=== PATIENT | female | born 1955 | race Caucasian/White ===

== ENCOUNTER 2017-02-15 14:30 | Inpatient (IN) ==
[2017-02-15] MEDS ORDERED: 0.9 % Sodium Chloride 1,000 ML IVC ONE ×3 (14:45→18:01)
--- NOTE | 2017-02-15 14:51 | Emergency Department Note ---
Disposition Clinical Impression: Small bowel obstruction, Tachycardia, Elevated serum lactate dehydrogenase, Acute kidney injury Hypotension Qualifiers: Hypotension type: other hypotension type Qualified Code(s): I95.89 - Other hypotension Pancreatitis Qualifiers: Chronicity: acute Pancreatitis type: unspecified pancreatitis type Acute pancreatitis complication: unspecified Qualified Code(s): K85.90 - Acute pancreatitis without necrosis or infection, unspecified Disposition: Admitted As Inpatient Condition: Critical Referrals: NO,PCP [Primary Care Provider] - Forms: ED Satisfaction Letter Altered Mental Status HPI - General Chief Complaint: ED Altered Mental Status Stated Complaint: AMS Time Seen by Provider: 02/15/17 14:45 Source: family, EMS Limitations: altered mental status Nursing Notes Reviewed: Yes Vital Signs Reviewed: Yes - History of Present Illness HPI Narrative: Miss Mcneil, a 62-year-old female, presents from home via EMS with chief complaint of altered mentation and abdominal swelling. Patient has been subjectively and vomiting for the past several days. Mother is at bedside states that there was abdominal pain started 1 or 2 days ago in the distention began 30-60 minutes prior to arrival. She is uncertain of other details she was unable to speak with her daughter as she was moaning and unable to answer. She currently takes no daily medications. - Related Data Home Medications Medication Instructions Recorded Confirmed Acetaminophen [Tylenol] 1,000 mg PO Q4H PRN 02/15/17 02/15/17 Calcium Carbonate/Simethicone 1 each PO Q4H PRN 02/15/17 02/15/17 [[place] Heartburn+Gas] Haloperidol [Haldol] 1 mg PO BID 02/15/17 02/15/17 Meloxicam [Mobic] 15 mg PO DAILY PRN 02/15/17 02/15/17 Polyethylene Glycol 3350 17 gm PO DAILY PRN 02/15/17 02/15/17 [Smoothlax] hydrOXYzine HCl [Hydroxyzine HCl] 12.5 - 50 mg PO Q6H PRN 02/15/17 02/15/17 Allergies Allergy/AdvReac Type Severity Reaction Status Date / Time No Known Allergies Allergy Verified 07/16/15 22:23 Limitations: ROS unobtainable due to patients medical condition Past Medical History - Past Medical History Medical history: Reports: other Surgical history: Reports: other Psychiatric history: Reports: anxiety 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 General: Patient is alert, not oriented, and in acute distress. She is moaning and moving uncomfortably. She localizes the pain. HEENT: No facial asymmetry. Head is normocephalic and atraumatic. PERRLA. Cardiovascular: Heart tachycardic rate and irregular rhythm without, rubs, gallops, or murmurs. No JVD. PMI nondisplaced. Respiratory: Symmetric chest rise with good respiratory effort. Bilateral breath sounds are clear without wheezing, crackles, or rhonchi. Abdomen: Bowel sounds present normoactive -4 quadrants. Abdomen is soft, nondistended, and nontender. No organomegaly noted. Musculoskeletal: Muscle strength 5/5 and symmetric bilaterally in upper and lower extremities. DTRs 2/4 and symmetric bilaterally in upper and lower extremities. Neuro: Cranial nerves II through XII without deficit. Sensation light touch intact. Psych: Patient's affect is appropriate for situation. - General Limitations: altered mental status General appearance: in distress Course Course Narrative: Patient stories concerning for small bowel structure versus possible sepsis. She rises and atrial fibrillation with no history of cardiac dysrhythmias. She currently takes no daily medications. She is not on any antiplatelet or anticoagulants. Will begin sepsis workup as well as CT abdomen and pelvis without contrast. Unable to assess for signs of peritonitis as patient's abdomen is tender, tense , she is shifting in bed moaning, and exquisitely tender to any palpation of her abdomen. Patient's blood pressure was 70s over 30s at presentation. Has dropped to 60s/ 30s then 50s/30s despite IV fluids on pressure bag. Left femoral line placed sterile technique. Levophed started and titrated. Spoke with ICU residents are aware of the patient. As his heart rate is tachycardic in the 140s and atrial fibrillation, BP systolic and 90 at 40 mcg/min of Levophed. 1.5 L normal saline has been bolused. Will begin an additional [address] Plaza who agrees patient is not a candidate for surgery at this time. Will follow her after admission to ICU. NG tube placed with immediate decompression of gastric contents. Within 5 minutes of NG tube placement, first 1.1 L gastric contents removed with continuation. Patient's heart rate was reduced to around 100. Rhythm returned to normal sinus rhythm. Blood pressure remained systolic 90s after Levophed titrated down to 5 mcg/min. Patient's pain reduced substantially after removal of 2+ L from the NG tube. 16:50 Dr. Warner and I spoke with the patient's mother at length in the family room and emergency department regarding the patient's current status and prognosis. We discussed CODE STATUS and how far the patient and her mother would want us to carry on in managing the patient. Patient's mother, who is the patient's power of deputy prosecuting attorney, stated that the patient would not know what we would be asking on a typical day. However, she is able to answer for the patient that patient would not want chest compressions or intubation. We clarified with those actions would mean that she reiterated no compressions, no intubation in the event of cardiac arrest pulmonary arrest. Mother had no additional questions at this time. We will make the patient DNRCCA. 17:[address] Jimenez who accepts the patient. Vital Signs Temperature 98.0 F 02/15/17 14:31 Pulse Rate 191 02/15/17 14:31 Respiratory Rate 32 02/15/17 14:31 Blood Pressure 106/74 02/15/17 14:31 O2 Sat by Pulse Oximetry 0 02/15/17 14:31 Temperature 98.0 F 02/15/17 14:31 Pulse Rate 90 02/15/17 17:23 Respiratory Rate 24 02/15/17 17:23 Blood Pressure 99/69 02/15/17 17:23 O2 Sat by Pulse Oximetry 91 02/15/17 17:23 Oxygen Delivery Oxygen Delivery Non Rebreather Mask Procedures - Central Line Placement Left Femoral Central Line Inserted*: Yes Central Line Catheter Replacement*: Yes Central Line Insertion: emergent Consent Obtained: verbal consent Procedural Pause: verify patient name and date of , timeout performed per policy, pippa and assess the site, assemble equipment and verify supplies, perform hand hygiene Patient Placed on Monitor/Pulse Ox: Yes During the Procedure: clinician is wearing sterile gloves, cap, mask,& gown during insertion, sterile field and sterile technique are maintained, patient's face is covered with drape or mask and wearing a cap Central Line Prep: Chlorhexidine scrub Prep the Procedure Site: apply chloraprep to the skin using a back and forth scrubbing motion Ultrasound Used for Placement: Yes Central Line Lumen Inserted: triple Post Procedure: sutured in place, good blood return, all ports aspirated, flushed, capped, sterile dressing applied, guide wire removed and visualized, dressing is dated Patient Tolerated Procedure: no complications Complications: none Name of Clinician Inserting Central Line: Serina Clinician Assisting/Completing Checklist: See Date: 02/15/17 Time: 15:30 Additional Comments: Indication: need for pressure support. Altered Mental Status - Medical Records Medical records reviewed: Yes I reviewed the patient's medical records. - Lab Data Lab results reviewed: Yes I reviewed the patient's lab results. Result diagrams: 02/15/17 14:45 02/15/17 14:45 Lab Results 02/15/17 02/15/17 02/15/17 Range/Units 14:45 14:45 14:45 WBC 18.1 H (4.3-11.1) K/mcL RBC 4.74 (3.82-4.97) M/mcL Hgb 14.6 (11.5-15.4) g/dL Hct 49.4 H (35.3-44.9) % MCV 104.2 H (83.0-100.0) fL MCH 30.8 (28.0-33.3) pg MCHC 29.6 L (31.6-35.5) g/dL RDW 13.4 (11.5-14.5) % Plt Count 272 (140-400) K/mcL MPV 11.9 (9.4-12.4) fL Immature Gran % 2.1 (0-4) % Seg Neutrophils % 78.9 % Lymphocytes % 14.9 % Monocytes % 3.9 % Eosinophils % 0.1 % Basophils % 0.1 % Neutrophils # 14.3 H (1.6-8.9) K/mcL Lymphocytes # 2.7 (0.6-4.6) K/mcL Monocytes # 0.7 (0.0-1.3) K/mcL Eosinophils # 0.0 (0.0-0.6) K/mcL Basophils # 0.0 (0.0-0.2) K/mcL Sodium 144 (136-145) mEq/L Potassium 4.4 (3.5-4.5) mEq/L Chloride 105 (98-109) mEq/L Carbon Dioxide 11 L (19-29) mEq/L BUN 46 H (7-20) mg/dL Creatinine 2.31 H (0.57-1.11) mg/dL Est GFR ( Amer) 26 L (> 60) Est GFR (Non-Af Amer) 22 L (> 60) BUN/Creatinine Ratio 20 (6-26) Glucose 283 H (70-99) mg/dL POC Glucose (58-89) Calculated Osmolality 320 H (280-300) Lactic Acid 18.0 H* (0.5-2.2) mmol/L Calcium 12.3 H (8.6-10.8) mg/dL Phosphorus 10.7 H (2.3-4.7) mg/dL Magnesium 3.2 H (1.6-2.6) mg/dL Total Bilirubin 0.8 (0.2-1.2) mg/dL Direct Bilirubin 0.3 (0.0-0.5) mg/dL Indirect Bilirubin 0.5 (0.0-1.2) mg/dL AST 17 (5-34) Units/L ALT 9 (0-55) Units/L Alkaline Phosphatase 76 (38-126) Units/L Troponin I (0-0.03) ng/mL Serum Total Protein 9.0 H (6.0-8.3) g/dL Albumin 4.1 (3.5-5.0) g/dL Globulin 4.9 H (2.4-3.5) g/dL Albumin/Globulin Ratio 0.8 L (1.1-2.2) Lipase 2218 H (8-78) Units/L Specimen Rejected 02/15/17 02/15/17 02/15/17 Range/Units 14:45 14:46 15:05 WBC (4.3-11.1) K/mcL RBC (3.82-4.97) M/mcL Hgb (11.5-15.4) g/dL Hct (35.3-44.9) % MCV (83.0-100.0) fL MCH (28.0-33.3) pg MCHC (31.6-35.5) g/dL RDW (11.5-14.5) % Plt Count (140-400) K/mcL MPV (9.4-12.4) fL Immature Gran % (0-4) % Seg Neutrophils % % Lymphocytes % % Monocytes % % Eosinophils % % Basophils % % Neutrophils # (1.6-8.9) K/mcL Lymphocytes # (0.6-4.6) K/mcL Monocytes # (0.0-1.3) K/mcL Eosinophils # (0.0-0.6) K/mcL Basophils # (0.0-0.2) K/mcL Sodium (136-145) mEq/L Potassium (3.5-4.5) mEq/L Chloride (98-109) mEq/L Carbon Dioxide (19-29) mEq/L BUN (7-20) mg/dL Creatinine (0.57-1.11) mg/dL Est GFR ( Amer) (> 60) Est GFR (Non-Af Amer) (> 60) BUN/Creatinine Ratio (6-26) Glucose (70-99) mg/dL POC Glucose 245 H (58-89) Calculated Osmolality (280-300) Lactic Acid (0.5-2.2) mmol/L Calcium (8.6-10.8) mg/dL Phosphorus (2.3-4.7) mg/dL Magnesium (1.6-2.6) mg/dL Total Bilirubin (0.2-1.2) mg/dL Direct Bilirubin (0.0-0.5) mg/dL Indirect Bilirubin (0.0-1.2) mg/dL AST (5-34) Units/L ALT (0-55) Units/L Alkaline Phosphatase (38-126) Units/L Troponin I 0.01 (0-0.03) ng/mL Serum Total Protein (6.0-8.3) g/dL Albumin (3.5-5.0) g/dL Globulin (2.4-3.5) g/dL Albumin/Globulin Ratio (1.1-2.2) Lipase (8-78) Units/L Specimen Rejected Volume - Radiology Data Radiology results reviewed: Yes I reviewed the patient's radiology results. Chest X-Ray 02/15/17 14:46 IMPRESSION: No evidence acute cardiopulmonary process. D/ / Yazmin Tipton MD / Yazmin Tipton MD Interpreting Provider: Yazmin Tipton MD Abdomen/Pelvis CT 02/15/17 14:54 IMPRESSION: 1. Massive distention of the stomach which is fluid-filled. There is pronounced dilation of the 1st and 2nd portions of the duodenum measuring up to 5 cm. The remainder of the small bowel is collapsed distally. Findings compatible with high-grade obstructive process at the level of the 2nd/3rd portions of the duodenum. Fluid is also seen extending of the partially visualized esophagus and findings predispose the patient for aspiration. D/ / Diaz Hollingsworth MD / Diaz Hollingsworth MD Interpreting Provider: Diaz Hollingsworth MD Head CT 02/15/17 15:38 IMPRESSION: Motion limited exam. Atrophy and moderate small vessel ischemic disease. If there is strong clinical concern for acute on chronic ischemia, consider MR. D/ / Patricio Kidd MD / Patricio Kidd MD Interpreting Provider: Patricio Kidd MD X-Ray 02/15/17 16:57 IMPRESSION: Nasogastric tube confirmed in the lumen of the stomach. D/ / Ellis Monroy MD / Ellis Monroy MD Interpreting Provider: Ellis Monroy MD - EKG Data EKG attestation: Yes I reviewed and interpreted this EKG. EKG results narrative: EKG #1 dated 02/15/17 at 14:33 shows atrial fibrillation with RVR. Rate 178. No previous EKGs for comparison. EKG #2 dated January 2017 at 16:59 shows sinus tachycardia with a rate of 123. Sugar 143, QRS 82, QT/QTC 346/44. Normal axis. Frequent PVCs. Nonspecific ST- T changes. TPA Checklist - LKW: 3-4.5 hrs Add. Contraindications Patient/family understanding: The patient/family members have been counseled and understood the risk, benefit , and alternatives of treatment.
[2017-02-15] MEDS ORDERED: Vancomycin 750 MG in D5% in Water 250 ML IVPB ONE (14:55)
[2017-02-15] MEDS ORDERED: Piperacillin/Tazobactam 3.375 GM in D5% in Water (Mini-Bag+) 100 ML IVPB ONE (14:55)
[2017-02-15] MEDS ORDERED: 0.9 % Sodium Chloride 500 ML IVC ONE (14:56)
[2017-02-15 14:59] LABS: Basophils % 0.1 %; Eosinophils % 0.1 %; Hematocrit 49.4 % (35.3-44.9); Hemoglobin 14.6 g/dL (11.5-15.4); Immature Granulocytes % 2.1 % (0-4); Lymphocytes # 2.7 K/mcL (0.6-4.6); Lymphocytes % 14.9 %; Mean Corpuscular HGB Conc 29.6 g/dL (31.6-35.5); Mean Corpuscular Hemoglobin 30.8 pg (28.0-33.3); Mean Corpuscular Volume 104.2 fL (83.0-100.0); Mean Platelet Volume 11.9 fL (9.4-12.4); Monocytes # 0.7 K/mcL (0.0-1.3); Monocytes % 3.9 %; Neutrophils # 14.3 K/mcL (1.6-8.9); Platelet Count 272 K/mcL (140-400); Red Blood Count 4.74 M/mcL (3.82-4.97); Red Cell Distribution Width 13.4 % (11.5-14.5); Segmented Neutrophils % 78.9 %
[2017-02-15] MEDS ORDERED: *HR* LORazepam 2 MG/ML VIAL IVP ONE (14:59)
[2017-02-15] MEDS ORDERED: *HR* LORazepam 2 MG/ML VIAL ONE (15:01)
[2017-02-15] MEDS ORDERED: *HR* FentaNYL (PF) 100 MCG/2 ML VIAL IVP ONE (15:02)
[2017-02-15] MEDS ORDERED: *HR* EPINEPHrine 1 MG/10 ML SYRINGE IVP ONE (15:12)
[2017-02-15 15:14] LABS: Albumin 4.1 g/dL (3.5-5.0); Albumin/Globulin Ratio 0.8 (1.1-2.2); Bilirubin,Direct 0.3 mg/dL (0.0-0.5); Bilirubin,Indirect 0.5 mg/dL (0.0-1.2); Bilirubin,Total 0.8 mg/dL (0.2-1.2); Calcium 12.3 mg/dL (8.6-10.8); Globulin 4.9 g/dL (2.4-3.5); Magnesium 3.2 mg/dL (1.6-2.6); Phosphorous 10.7 mg/dL (2.3-4.7); Potassium 4.4 mEq/L (3.5-4.5)
[2017-02-15] MEDS ORDERED: Levofloxacin 750 MG/150 ML 750 MG/150 ML BAG IVPB ONE (15:35)
--- NOTE | 2017-02-15 15:38 | Emergency Department Note ---
Disposition Clinical Impression: Small bowel obstruction Disposition: Admitted As Inpatient Referrals: NO,PCP [Primary Care Provider] - Forms: ED Satisfaction Letter General Adult HPI - General Chief complaint: ED Altered Mental Status Stated complaint: AMS Time Seen by Provider: 02/15/17 14:45 Source: family, EMS Limitations: altered mental status - History of Present Illness Pain Scale: 0 - Related Data Home Medications Medication Instructions Recorded Confirmed TraMADol [Ultram] 50 mg PO BID 07/16/15 07/16/15 clonazePAM [Klonopin] 2 mg PO BID PRN 07/16/15 07/16/15 Allergies Allergy/AdvReac Type Severity Reaction Status Date / Time No Known Allergies Allergy Verified 07/16/15 22:23 Past Medical History - Past Medical History Medical history: Reports: other Surgical history: Reports: other Psychiatric history: Reports: anxiety DOWEL PIN WORKER 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 - Social History Smoking Status: Never smoker Smokeless Tobacco Status: No Alcohol use: Reports: none Drug use: Reports: none Physical Exam - General Limitations: altered mental status General appearance: in distress Course Vital Signs Temperature 98.0 F 02/15/17 14:31 Pulse Rate 191 02/15/17 14:31 Respiratory Rate 32 02/15/17 14:31 Blood Pressure 106/74 02/15/17 14:31 O2 Sat by Pulse Oximetry 0 02/15/17 14:31 Temperature 98.0 F 02/15/17 14:31 Pulse Rate 134 02/15/17 16:42 Respiratory Rate 32 02/15/17 16:42 Blood Pressure 107/77 02/15/17 16:42 O2 Sat by Pulse Oximetry 89 02/15/17 16:42 Oxygen Delivery Oxygen Delivery Non Rebreather Mask Medical Decision Making - Lab Data Result diagrams: 02/15/17 14:45 02/15/17 14:45 Lab Results 02/15/17 02/15/17 02/15/17 Range/Units 14:45 14:45 14:45 WBC 18.1 H (4.3-11.1) K/mcL RBC 4.74 (3.82-4.97) M/mcL Hgb 14.6 (11.5-15.4) g/dL Hct 49.4 H (35.3-44.9) % MCV 104.2 H (83.0-100.0) fL MCH 30.8 (28.0-33.3) pg MCHC 29.6 L (31.6-35.5) g/dL RDW 13.4 (11.5-14.5) % Plt Count 272 (140-400) K/mcL MPV 11.9 (9.4-12.4) fL Immature Gran % 2.1 (0-4) % Seg Neutrophils % 78.9 % Lymphocytes % 14.9 % Monocytes % 3.9 % Eosinophils % 0.1 % Basophils % 0.1 % Neutrophils # 14.3 H (1.6-8.9) K/mcL Lymphocytes # 2.7 (0.6-4.6) K/mcL Monocytes # 0.7 (0.0-1.3) K/mcL Eosinophils # 0.0 (0.0-0.6) K/mcL Basophils # 0.0 (0.0-0.2) K/mcL Sodium 144 (136-145) mEq/L Potassium 4.4 (3.5-4.5) mEq/L Chloride 105 (98-109) mEq/L Carbon Dioxide 11 L (19-29) mEq/L BUN 46 H (7-20) mg/dL Creatinine 2.31 H (0.57-1.11) mg/dL Est GFR ( Amer) 26 L (> 60) Est GFR (Non-Af Amer) 22 L (> 60) BUN/Creatinine Ratio 20 (6-26) Glucose 283 H (70-99) mg/dL POC Glucose (58-89) Calculated Osmolality 320 H (280-300) Lactic Acid 18.0 H* (0.5-2.2) mmol/L Calcium 12.3 H (8.6-10.8) mg/dL Phosphorus 10.7 H (2.3-4.7) mg/dL Magnesium 3.2 H (1.6-2.6) mg/dL Total Bilirubin 0.8 (0.2-1.2) mg/dL Direct Bilirubin 0.3 (0.0-0.5) mg/dL Indirect Bilirubin 0.5 (0.0-1.2) mg/dL AST 17 (5-34) Units/L ALT 9 (0-55) Units/L Alkaline Phosphatase 76 (38-126) Units/L Troponin I (0-0.03) ng/mL Serum Total Protein 9.0 H (6.0-8.3) g/dL Albumin 4.1 (3.5-5.0) g/dL Globulin 4.9 H (2.4-3.5) g/dL Albumin/Globulin Ratio 0.8 L (1.1-2.2) Lipase 2218 H (8-78) Units/L Specimen Rejected 02/15/17 02/15/17 02/15/17 Range/Units 14:45 14:46 15:05 WBC (4.3-11.1) K/mcL RBC (3.82-4.97) M/mcL Hgb (11.5-15.4) g/dL Hct (35.3-44.9) % MCV (83.0-100.0) fL MCH (28.0-33.3) pg MCHC (31.6-35.5) g/dL RDW (11.5-14.5) % Plt Count (140-400) K/mcL MPV (9.4-12.4) fL Immature Gran % (0-4) % Seg Neutrophils % % Lymphocytes % % Monocytes % % Eosinophils % % Basophils % % Neutrophils # (1.6-8.9) K/mcL Lymphocytes # (0.6-4.6) K/mcL Monocytes # (0.0-1.3) K/mcL Eosinophils # (0.0-0.6) K/mcL Basophils # (0.0-0.2) K/mcL Sodium (136-145) mEq/L Potassium (3.5-4.5) mEq/L Chloride (98-109) mEq/L Carbon Dioxide (19-29) mEq/L BUN (7-20) mg/dL Creatinine (0.57-1.11) mg/dL Est GFR ( Amer) (> 60) Est GFR (Non-Af Amer) (> 60) BUN/Creatinine Ratio (6-26) Glucose (70-99) mg/dL POC Glucose 245 H (58-89) Calculated Osmolality (280-300) Lactic Acid (0.5-2.2) mmol/L Calcium (8.6-10.8) mg/dL Phosphorus (2.3-4.7) mg/dL Magnesium (1.6-2.6) mg/dL Total Bilirubin (0.2-1.2) mg/dL Direct Bilirubin (0.0-0.5) mg/dL Indirect Bilirubin (0.0-1.2) mg/dL AST (5-34) Units/L ALT (0-55) Units/L Alkaline Phosphatase (38-126) Units/L Troponin I 0.01 (0-0.03) ng/mL Serum Total Protein (6.0-8.3) g/dL Albumin (3.5-5.0) g/dL Globulin (2.4-3.5) g/dL Albumin/Globulin Ratio (1.1-2.2) Lipase (8-78) Units/L Specimen Rejected Volume Attestation Statement - Attestation Attestation: I examined this patient and my medical decision-making was reviewed with the STRUCTURAL MANAGER/PA/Advanced Practice Nurse/Resident Physician. I agree with the documented findings, disposition and treatment plan as described except to the extent set forth below. Patient arrived with altered mental status and vomiting. Patient is development delayed. Lives with mom. States she has had some vomiting for several days. Today was moaning and not acting right so she called 911. On arrival here patient is hypotensive with a systolic blood pressure in the 70s. Moaning and rolling in the bed. Firm abdomen. Plan. Suspected small bowel obstruction. Likely septic. IV fluid bolus is ordered. Patient still very agitated. Blood pressure still low. Code cart was open and postdose epi was given to a total of 60 mics[address] Placing central line after verbal consent from mom. Central line placed by Dr. Smith. Norepinephrine drip started. CT notified. Labs are, back with a white blood cell count 18,000. Lactate very high as well. 2 l of fluid been ordered. Currently on pressure bags. Norepi infusing. Antibiotics going as well. ICU has been notified. Await CT results. CT shows a high-grade proximal small bowel instruction. To have liters out of NG. Heart rate and blood pressure much improved. Weaning norepinephrine drip. Discussed prognosis with mom. Patient made DNR comfort care arrest. Once is to continue her measures for now. Surgeries and consult. Will admit to ICU.
[2017-02-15] MEDS ORDERED: Amiodarone Premix 150 MG/100 ML BAG IVPB ONE (16:16)
[2017-02-15] MEDS ORDERED: Ondansetron 4 MG/2 ML VIAL IVP PRN (17:33)
[2017-02-15] MEDS ORDERED: Naloxone 0.4 MG/ML INJ IVP PRN (17:33)
--- NOTE | 2017-02-15 17:33 | Pulmonology History & Physical ---
<Charles Jimenez W - Last Filed: 02/15/17 18:07> Date of Encounter: 02/15/17 History of Present Illness HPI: Ms. Mcneil is a 62 year old female Medications and Allergies Acetaminophen [Tylenol] 1,000 mg PO Q4H PRN 02/15/17 [History] Calcium Carbonate/Simethicone [[place] Heartburn+Gas] 1 each PO Q4H PRN [History] Haloperidol [Haldol] 1 mg PO BID 02/15/17 [History] Meloxicam [Mobic] 15 mg PO DAILY PRN 02/15/17 [History] Polyethylene Glycol 3350 [Smoothlax] 17 gm PO DAILY PRN 02/15/17 [History] hydrOXYzine HCl [Hydroxyzine HCl] 12.5 - 50 mg PO Q6H PRN 02/15/17 [History] Allergies No Known Allergies Allergy (Verified 07/16/15 22:23) All Systems: A 10-system review of systems was performed and is negative for pertinent findings except as documented above in the HPI. Physical Examination Vital Signs: Vital Signs, Last 4 Hours Resp BP 02/15/17 17:56 22 122/92 Results - Laboratory Findings CBC and BMP: 02/15/17 14:45 02/15/17 14:45 Abnormal lab findings: Abnormal lab results WBC 18.1 K/mcL (4.3-11.1) H 02/15/17 14:45 Hct 49.4 % (35.3-44.9) H 02/15/17 14:45 MCV 104.2 fL (83.0-100.0) H 02/15/17 14:45 MCHC 29.6 g/dL (31.6-35.5) L 02/15/17 14:45 Neutrophils # 14.3 K/mcL (1.6-8.9) H 02/15/17 14:45 Carbon Dioxide 11 mEq/L (19-29) L 02/15/17 14:45 BUN 46 mg/dL (7-20) H 02/15/17 14:45 Creatinine 2.31 mg/dL (0.57-1.11) H 02/15/17 14:45 Est GFR ( Amer) 26 (> 60) L 02/15/17 14:45 Est GFR (Non-Af Amer) 22 (> 60) L 02/15/17 14:45 Glucose 283 mg/dL (70-99) H 02/15/17 14:45 POC Glucose 245 (58-89) H 02/15/17 14:46 Calculated Osmolality 320 (280-300) H 02/15/17 14:45 Lactic Acid 9.3 mmol/L (0.5-2.2) H* 02/15/17 17:34 Calcium 12.3 mg/dL (8.6-10.8) H 02/15/17 14:45 Phosphorus 10.7 mg/dL (2.3-4.7) H 02/15/17 14:45 Magnesium 3.2 mg/dL (1.6-2.6) H 02/15/17 14:45 Serum Total Protein 9.0 g/dL (6.0-8.3) H 02/15/17 14:45 Globulin 4.9 g/dL (2.4-3.5) H 02/15/17 14:45 Albumin/Globulin Ratio 0.8 (1.1-2.2) L 02/15/17 14:45 Lipase 2218 Units/L (8-78) H 02/15/17 14:45 - Attending Attestation I examined this patient and my medical decision-making was reviewed with the [employer]/PA/Advanced Practice Nurse/Resident Physician. I agree with the documented findings, disposition and treatment plan as described except to the extent set forth below. I spent 35min of Critical Care time with this patient. It involved decision making of high complexity to assess, manipulate, and support vital organ system failure and/or to prevent further life threatening deterioration of the patient' s condition. The time involved in the performance of separately reportable procedures was not counted toward critical care time. Patient seen and examined at bedside Labs, radiology, chart personally reviewed. All lines examined without evidence of infection. Neuropsych: Patient has MDR at baseline currently awake and interactive perhaps a bit more agitated per the mother's and baseline mental status but no focal neurological deficits. Continue pain control with narcotics Pulm: Oxygenating well on room air at present. High risk for development of ARDS continue to monitor. Arterial blood gas pending Cards: Distributive shock likey secondary to sepsis and or pancreatitis. Requiring vasopressor support with levo fed despite fluid resuscitation. Goal map 60 courses been complicated by atrial fibrillation with rapid ventricular response however at last check patient is rate controlled despite use of vasopressor. Can consider alternative vasopressor if Afib with RVR appears to compromise hydrodynamics such as phenylephrine or loaded with amiodarone based upon clinical course. ECG without STEMI Troponin within normal limits FEN-GI: Nothing by mouth for now for high-grade gastric obstruction. NG tube placed, suspect large component of abdominal compartments syndrome secondary to add gastric distention leading to bowel ischemia/his meniscal necrosis and subsequent rise in her lactate. I personally discussed radiographic findings with on-call radiologist and also discussed this case with covering surgeon . Possible surgical intervention based upon response to volume resuscitation and bowel decompression with NG tube. I suspect the cause of her pancreatitis is also mass effect/obstruction given degree of size of duodenum. Renal: DEBORAH which is likely multifactorial including hypovolemia and again possible abdominal compartment syndrome; she has a significant anion gap lactic acidosis from causes as outlined previously. ID: High probability of bowel ischemia bacterial translocation an intra- abdominal sepsis treating broadly with Pip/Tazo quintanilla cultures pending Heme/Onc: DVT prophylaxis given Endo: Glucose monitored Integ/MSK: Skin care per ICU protocol to prevent ulcers CODE: I spoke to the patient's next of kin/healthcare power of trademark attorney (her mother at the bedside). Patient at this point CODE STATUS DNAR. Should clinical course continued to deteriorate mother's point of view is that palliative measures would be sought. She would entertain possibility of surgery if if deemed life-sustaining <Manjit Ortega - Last Filed: 02/15/17 19:43> Date of Encounter: 02/15/17 Time of Encounter: 17:29 Assessment and Plan (1) Small bowel obstruction Current visit: Yes Status: Acute high-grade small bowel obstruction visualized on CT abdomen and pelvis 02/15 abdomen initially was firm and nondistended NG placement confirmed on KUB, immediate 2 L output keep NPO on repeat abdominal exam, abdomen is less tense surgery, Dr. Epps has been consulted - possible surgical intervention - continue bowel decompression with NG tube will obtain intra-abdominal pressure concerning for abdominal compartment syndrome (2) Septic shock Current visit: Yes Status: Acute meet sepsis criteria leukocytosis 18, tachycardia, lactate 18 shock likely secondary to sepsis and/or pancreatitis initially hypotensive, has received fluid resuscitation and requiring levophed blood cultures x2 (02/15) pending continue Zosyn (3) Shock Current visit: Yes Status: Acute shock most likely distributive possibly from sepsis or pancreatitis will treat like septic per guidelines and de-escalate antibiotics will continue Zosyn, concerning for GI infection from SBO patient has received a total of 3 L normal saline and is currently on 4th L bolus left femoral central venous catheter placed currently receiving levophed for pressure support MAP >[address] on maintenance LR 150 cc/hr (4) Acute pancreatitis Current visit: Yes Status: Acute elevated lipase 2218 and abdominal tenderness suspect cause is from mass effect/obstruction possible gallstone or ileus will check triglycerides BISAP score 3 Glenford's criteria 3 pending a LDH Qualifiers: Pancreatitis type: unspecified pancreatitis type Acute pancreatitis complication: unspecified Qualified Code(s): K85.90 - Acute pancreatitis without necrosis or infection, unspecified (5) Lactic acidosis Current visit: Yes Status: Acute initial 18 - downtrending to 9.3 received 3L fluid resuscitation, currently on 4th L continue to trend concerning for ischemic colitis secondary to suspected abdominal compartment syndrome surgery consulted (6) Metabolic acidosis Current visit: Yes Status: Acute Anion gap 28 secondary to lactic acidosis 18 - repeat lactate 9.3 ABG pending (7) Acute kidney injury Current visit: Yes Status: Acute Creatinine 2.31 likely multifactorial due to a prerenal etiology from decrease cardiac output with atrial fibrillation, hypovolemia, or possible abdominal compartment syndrome continue to monitor (8) Multisystem organ failure Current visit: Yes Status: Acute high risk for ARDS continue to monitor ABG pending (9) Atrial fibrillation Current visit: Yes Status: Acute no prior history of atrial fibrillation in ED atrial fibrillation with RVR 180s on my exam and upon arrival to ICU patient is atrial fibrillation with rate 80- 90s may consider alternative vasopressor such as Phenylephrine or load with Amiodarone if atrial fibrillation with RVR compromises hemodynamics Qualifiers: Atrial fibrillation type: unspecified Qualified Code(s): I48.91 - Unspecified atrial fibrillation (10) Hyperglycemia Current visit: Yes Status: Acute no history of diabetes mellitus likely from pancreatitis placed on low dose insulin sliding scale Accu check q6 hours (11) Goals of care, counseling/discussion Current visit: Yes Status: Acute discussed with mother, she does not wish for heroic measures such as CPR if cardiac arrest in the ED she spoke with social studies department chair and signed DNR CCA okay for temporary intubation and mechanical ventilation if necessary as well as surgery (12) Electrolyte abnormality Current visit: Yes Status: Acute multiple electrolyte abnormalities metabolic acidosis with anion gap 28 likely from lactic acidosis bicarb 11 pending ABG to better assess acid-base status electrolyte repletion orders placed (13) Mental retardation Current visit: Yes Status: Acute (14) Poor dentition Current visit: Yes Status: Acute (15) DVT prophylaxis Current visit: Yes Status: Acute Heparin SQ for DVT prophylaxis THERAPY ASSISTANT: patient is MRDD and currently at baseline, awake and interactive, appears agitated and may be due to pain and discomfort, Dilaudid prn for pain Pulm: oxygenating well on RA, high risk for development of ARDS, will continue to monitor, ABG pending Cardio: patient is in shock likely distributive from sepsis and or pancreatitis , complicated by atrial fibrillation, hypotensive requiring levophed, goal MAP > 60 FEN-GI: NPO with NG tube for gastric decompression, case discussed with Dr. Epps, surgeon for possible intervention based upon volume resuscitation and decompression Renal: DEBORAH likely from hypovolemia and possible abdominal compartment syndrome, continue to monitor and fluid resuscitate ID: blood cultures pending, high probability of bowel ischemia and bacterial translocation, treating broadly with Zosyn Heme/Onc: hemoglobin stable, DVT prophylaxis with Heparin Endo: monitor glucose, ISS ordered Integ/MSK: continue skin care per ICU protocol, no acute issues, soft restraints in place History of Present Illness Chief complaint: Abdominal pain HPI: Ms. Mcneil is a 62 year old female history of MRDD and irritable bowel syndrome admitted to [facility] for a high-grade small bowel obstruction. History was provided by mother. Patient normally will answer "yes, no momma, and ouch." Reports over the past several weeks patient has been ill appearing and complaining of pain. She has history of chronic pain in the knee requiring arthoscopy and thought that was mostly her pain. Over the past week or so she has had diminished oral intake and has been vomiting frequently, described as bile. Attempt to take her to PCP in [place] but complained of pain everyone, including placing a blood pressure cuff. Patient has been taking Meloxicam for the pain and Hydroxyzine for the agitation. Mother believed that this may have just been the flu. Earlier today around 1300 patient was attempting to eat a hamburger and soup but vomited and at one point passed out and was not acting her normal self. Mother noticed that her abdomen is more distended than usual and EMS was called. Denies any fever, chills, bloody stools or black tarry stools. She has noticed decreased urine output as well as lower frequency of BM. Denies any prior abdominal surgeries. Denies any recent travel, tobacco use , or alcohol use. Upon her arrival to ED, she was hypotensive 70/50s and required push dose pressors of Epinephrine. Found to be in atrial fibrillation RVR as high as 180s. Abdomen was severely distended and firm. Labs were significant for leukocytosis, lactic acidosis of 18 with elevated lipase 2218. Given 3L of NS and left femoral CVC placed. CT shows high-grade small bowel obstruction. Surgery, Dr. Epps, consulted and recommended conservative management at this time with bowel decompression and volume resuscitation. Possibly surgical intervention. After NG tube placement, 2L immediate gastric output and patient' s hemodynamics improved. She remains in atrial fibrillation rate of 90. Appears in less distress and abdomen is less firm. Mother signed form for DNR-CCA. Past Med Surg Social Fam HX - Past Medical History Medical history: other Psychiatric history: anxiety - Past Surgical History Surgical History: other - Social History Smoking Status: Never smoker Smokeless Tobacco Status: No Alcohol use: none Drug use: none ROS unobtainable: due to mental status (d/t medical condition, history assisted by mother) All Systems: A 10-system review of systems was performed and is negative for pertinent findings except as documented above in the HPI. Physical Examination Vital Signs: Vital Signs, Last 4 Hours Temp Pulse Resp BP Pulse Ox 02/15/17 17:08 107 24 108/61 92 02/15/17 16:55 112 26 104/65 89 02/15/17 16:42 134 32 107/77 89 02/15/17 16:38 101 26 112/85 94 02/15/17 16:23 181 28 87/50 89 02/15/17 16:10 164 30 91/33 88 02/15/17 16:02 182 28 110/35 90 02/15/17 15:07 176 34 68/38 87 02/15/17 14:31 98.0 F 191 32 106/74 0 General appearance: alert, agitated, appears uncomfortable, other (MRDD, mother reports she is baseline, she is awake and interactive) Eyes: nonicteric ENT: oropharynx dry, other (poor dentition) Neck: supple Effort: normal Inspection: normal Auscultation: bilateral: clear Cardiovascular: irregular rhythm Gastrointestinal: hypoactive bowel sounds, tender, other (firm and distended initially, after decompression much softer) Integumentary: normal Musculoskeletal: no deformities, ROM normal non-focal exam, unable to assess due to mental status Results - Laboratory Findings CBC and BMP: 02/15/17 14:45 02/15/17 14:45 Abnormal lab findings: Abnormal lab results WBC 18.1 K/mcL (4.3-11.1) H 02/15/17 14:45 Hct 49.4 % (35.3-44.9) H 02/15/17 14:45 MCV 104.2 fL (83.0-100.0) H 02/15/17 14:45 MCHC 29.6 g/dL (31.6-35.5) L 02/15/17 14:45 Neutrophils # 14.3 K/mcL (1.6-8.9) H 02/15/17 14:45 Carbon Dioxide 11 mEq/L (19-29) L 02/15/17 14:45 BUN 46 mg/dL (7-20) H 02/15/17 14:45 Creatinine 2.31 mg/dL (0.57-1.11) H 02/15/17 14:45 Est GFR ( Amer) 26 (> 60) L 02/15/17 14:45 Est GFR (Non-Af Amer) 22 (> 60) L 02/15/17 14:45 Glucose 283 mg/dL (70-99) H 02/15/17 14:45 POC Glucose 245 (58-89) H 02/15/17 14:46 Calculated Osmolality 320 (280-300) H 02/15/17 14:45 Lactic Acid 18.0 mmol/L (0.5-2.2) H* 02/15/17 14:45 Calcium 12.3 mg/dL (8.6-10.8) H 02/15/17 14:45 Phosphorus 10.7 mg/dL (2.3-4.7) H 02/15/17 14:45 Magnesium 3.2 mg/dL (1.6-2.6) H 02/15/17 14:45 Serum Total Protein 9.0 g/dL (6.0-8.3) H 02/15/17 14:45 Globulin 4.9 g/dL (2.4-3.5) H 02/15/17 14:45 Albumin/Globulin Ratio 0.8 (1.1-2.2) L 02/15/17 14:45 Lipase 2218 Units/L (8-78) H 02/15/17 14:45 - Diagnostic Findings Additional studies: Chest X-Ray 02/15/17 14:46 IMPRESSION: No evidence acute cardiopulmonary process. D/ / Yazmin Tipton MD / Yazmin Tipton MD Interpreting Provider: Yazmin Tipton MD Abdomen/Pelvis CT 02/15/17 14:54 IMPRESSION: 1. Massive distention of the stomach which is fluid-filled. There is pronounced dilation of the 1st and 2nd portions of the duodenum measuring up to 5 cm. The remainder of the small bowel is collapsed distally. Findings compatible with high-grade obstructive process at the level of the 2nd/3rd portions of the duodenum. Fluid is also seen extending of the partially visualized esophagus and findings predispose the patient for aspiration. D/ / Diaz Hollingsworth MD / Diaz Hollingsworth MD Interpreting Provider: Diaz Hollingsworth MD Head CT 02/15/17 15:38 IMPRESSION: Motion limited exam. Atrophy and moderate small vessel ischemic disease. If there is strong clinical concern for acute on chronic ischemia, consider MR. D/ / Patricio Kidd MD / Patricio Kidd MD Interpreting Provider: Patricio Kidd MD X-Ray 02/15/17 16:57 IMPRESSION: Nasogastric tube confirmed in the lumen of the stomach. D/ / Ellis Monroy MD / Ellis Monroy MD Interpreting Provider: Ellis Monroy MD
[2017-02-15 17:51] LABS: Prothrombin Time 11.2 Seconds (9.4-12.1)
[2017-02-15 17:54] LABS: Activated Partial Thrombo Time 27.3 Seconds (26.0-36.0)
[2017-02-15] MEDS: Phenylephrine 10 MG in D5% in Water 250 ML IVC SCH ×3 (17:58→21:33)
[2017-02-15] MEDS ORDERED: D5% in Water 1,000 ML IVC PRN (18:18)
[2017-02-15] MEDS ORDERED: Dextrose Gel 15 GM PO PRN ×2 (18:18)
[2017-02-15] MEDS: *HR* HYDROmorphone (PF) 1 MG/ML SYRINGE IVP PRN ×2 (19:00→23:14)
[2017-02-15 19:04] LABS: ABG Base Excess -12.1 mEq/L (-2.0 to 3.0); ABG HCO3 14.7 mEQ/L (21-27); ABG Oxygen Saturation 95 % (95-98); ABG PCO2 36 mmHg (35-45); ABG PH 7.22 pH Units (7.32-7.45); ABG PO2 91 mmHg (85-104); ABG TCO2 15.8 mEq/L (20-26)
[2017-02-15 19:05] LABS: Blood Gas FiO2 21 %
[2017-02-15] MEDS: Ringers Solution, Lactated 1,000 ML IVC SCH (19:49)
[2017-02-15] MEDS: *HR* Heparin 5,000 UNIT/ML VIAL SQ SCH (19:56)
[2017-02-15] MEDS: Pantoprazole 40 MG VIAL IVPB SCH (19:56)
[2017-02-15 22:58] LABS: Magnesium 1.5 mg/dL (1.6-2.6)
[2017-02-15 23:02] LABS: Calcium 8.7 mg/dL (8.6-10.8)
[2017-02-15] MEDS ORDERED: Magnesium Sulfate 2 GM in D5% in Water 100 ML IVPB ONE (23:09)
[2017-02-16] MEDS: Ringers Solution, Lactated 1,000 ML IVC SCH ×2 (01:45→13:35)
[2017-02-16] MEDS: Piperacillin/Tazobactam 3.375 GM in D5% in Water (Mini-Bag+) 100 ML IVPB SCH ×4 (02:40→23:01)
[2017-02-16] MEDS: Insulin LISPRO 300 UNITS/3 ML VIAL SQ SCH ×5 (02:41→23:05)
[2017-02-16] MEDS: *HR* HYDROmorphone (PF) 1 MG/ML SYRINGE IVP PRN ×6 (05:02→23:31)
[2017-02-16] MEDS: Phenylephrine 20 MG in D5% in Water 500 ML IVC SCH ×4 (05:22→22:57)
[2017-02-16] MEDS: *HR* Heparin 5,000 UNIT/ML VIAL SQ SCH ×2 (06:30→18:10)
[2017-02-16] MEDS ORDERED: Ringers Solution, Lactated 1,000 ML IVC SCH (06:59)
--- NOTE | 2017-02-16 07:51 | Pulmonology Progress Note ---
<BarbaraIkeCharles W - Last Filed: 02/16/17 12:50> Date of Encounter: 02/16/17 Objective PUL Vital signs: Last Vital Signs Temp 98.1 F 02/16/17 07:56 Pulse 100 02/16/17 06:00 Resp 14 02/16/17 06:00 BP 101/65 02/16/17 06:00 Pulse Ox 97 02/16/17 06:00 Results - Laboratory Findings CBC and BMP: 02/16/17 09:27 02/16/17 04:58 ABG ABG pH 7.22 pH Units (7.32-7.45) L 02/15/17 18:50 ABG pCO2 36 mmHg (35-45) 02/15/17 18:50 ABG pO2 91 mmHg (85-104) 02/15/17 18:50 ABG O2 Saturation 95 % (95-98) 02/15/17 18:50 PT/INR, D-dimer PT 11.2 Seconds (9.4-12.1) 02/15/17 17:34 Abnormal lab findings: Abnormal lab results WBC 18.1 K/mcL (4.3-11.1) H 02/15/17 14:45 Hct 49.4 % (35.3-44.9) H 02/15/17 14:45 MCV 104.2 fL (83.0-100.0) H 02/15/17 14:45 MCHC 29.6 g/dL (31.6-35.5) L 02/15/17 14:45 Neutrophils # 14.3 K/mcL (1.6-8.9) H 02/15/17 14:45 ABG pH 7.22 pH Units (7.32-7.45) L 02/15/17 18:50 ABG HCO3 14.7 mEQ/L (21-27) L 02/15/17 18:50 ABG Total CO2 15.8 mEq/L (20-26) L 02/15/17 18:50 ABG Base Excess -12.1 mEq/L (-2.0 to 3.0) L 02/15/17 18:50 Carbon Dioxide 17 mEq/L (19-29) L 02/15/17 22:39 BUN 46 mg/dL (7-20) H 02/15/17 22:39 Creatinine 2.05 mg/dL (0.57-1.11) H 02/15/17 22:39 Est GFR ( Amer) 30 (> 60) L 02/15/17 22:39 Est GFR (Non-Af Amer) 25 (> 60) L 02/15/17 22:39 Glucose 104 mg/dL (70-99) H 02/15/17 22:39 POC Glucose 110 (58-89) H 02/16/17 06:27 Phosphorus 10.7 mg/dL (2.3-4.7) H 02/15/17 14:45 Serum Total Protein 9.0 g/dL (6.0-8.3) H 02/15/17 14:45 Globulin 4.9 g/dL (2.4-3.5) H 02/15/17 14:45 Albumin/Globulin Ratio 0.8 (1.1-2.2) L 02/15/17 14:45 Lipase 2218 Units/L (8-78) H 02/15/17 14:45 - Clinical Findings Intake & Output: Intake & Output 02/15/17 02/16/17 02/16/17 23:59 07:59 15:59 Intake Total 3251 / 4101 1502 / 1502 Output Total 5525 / 7125 700 / 700 Balance -2274 / -3024 802 / 802 Weight 49.9 kg Consult Discharge Plan - Plan Referrals: NO,PCP [Primary Care Provider] - - Attending Attestation I examined this patient and my medical decision-making was reviewed with the POSTDOCTORAL RESEARCH ASSOCIATE/PA/Advanced Practice Nurse/Resident Physician. I agree with the documented findings, disposition and treatment plan as described except to the extent set forth below. Patient seen and examined at bedside Labs, radiology, chart personally reviewed. All lines examined without evidence of infection. Neuropsych: Patient has MDR at baseline currently awake alert appears anxious calling out for her mother who we will contact to come to give support. cont pain control with narcotic. Pulm: Oxygenating well on room air at present. High risk for development of ARDS continue to monitor. Cards: Distributive shock likey secondary to sepsis and or pancreatitis resolving. No only low dose vasopressor Phenyleprhine s/t afib) lactate has remarkably normalized. Goal map 60. Afib has resolved now sinus. FEN-GI: Nothing by mouth for now s/t high-grade gastric obstruction. NG tube placed, Gen Surgery following. Plan to repeat CT with oral contrast today to evaluate for surgical intervention. I suspect the cause of her pancreatitis is also mass effect/obstruction given degree of size of duodenum. Renal: Oliguric DEBORAH which is likely multifactorial including hypotension and again possible abdominal compartment syndrome; she has a significant anion gap lactic acidosis which is resolving. Patient also has mild Rhabdo will trend CPK. Cont ID: High probability of bowel ischemia bacterial translocation an intra- abdominal sepsis treating broadly with Pip/Tazo quintanilla cultures pending Heme/Onc: DVT prophylaxis given Endo: Glucose monitored Integ/MSK: Skin care per ICU protocol to prevent ulcers CODE: DNAR <JordanManjit - Last Filed: 02/16/17 15:31> Date of Encounter: 02/16/17 Time of Encounter: 07:51 Assessment and Plan (1) Small bowel obstruction Current Visit: Yes Status: Acute high-grade small bowel obstruction visualized on CT abdomen and pelvis 02/15 abdomen soft with hypoactive/absent bowel sounds gastric output total 7700 cc surgery, Dr. Epps has been consulted and will continue to follow recommendations - possible surgical intervention - continue bowel decompression with NG tube - repeat CT abd/pelvis with oral contrast (02/16) - marked interval decompression of the stomach and small bowel as the oral contrast reaches ascending colon, also superimposed left lower lobe infiltrate suspicious for superimposed pneumonia lactate normalized to 1.7 CPK elevated 3759 will continue maintenance fluid (2) Septic shock Current Visit: Yes Status: Acute improving pending labwork due to [employer] downtime lactate has improved from initial 18 to 1.7 wean off phenylephrine MAP >60 shock likely secondary to sepsis and/or pancreatitis initially hypotensive, has received fluid resuscitation and requiring levophed blood cultures x2 (02/15) NGTD continue Zosyn (3) Shock Current Visit: Yes Status: Acute shock most likely distributive possibly from sepsis or pancreatitis will treat like septic per guidelines and de-escalate antibiotics will continue Zosyn, concerning for GI infection from SBO patient has received a total of 4 L normal saline and LR maintenance left femoral central venous catheter placed currently receiving levophed for pressure support MAP >60 continue on maintenance LR 75 cc/hr (4) Acute pancreatitis Current Visit: Yes Status: Acute elevated lipase 2218 and abdominal tenderness - lipase improved to 184 suspect cause is from mass effect/obstruction triglycerides 88 BISAP score 3 [place]'s criteria 4 Qualifiers: Pancreatitis type: unspecified pancreatitis type Acute pancreatitis complication: unspecified Qualified Code(s): K85.90 - Acute pancreatitis without necrosis or infection, unspecified (5) Lactic acidosis Current Visit: Yes Status: Resolved initial 18 - downtrended to 1.7 received total of 4 L fluid resuscitation and currently on LR maintenance concerning for ischemic colitis secondary to suspected abdominal compartment syndrome surgery consulted (6) Metabolic acidosis Current Visit: Yes Status: Acute Anion gap improved to 14 secondary to lactic acidosis which is resolving (7) Acute kidney injury Current Visit: Yes Status: Acute Creatinine 2.33 (2.05) likely multifactorial due to a prerenal etiology from decrease cardiac output with atrial fibrillation, hypovolemia, or possible abdominal compartment syndrome continue to monitor UOP 100cc (8) Elevated CPK Current Visit: Yes Status: Acute elevated CPK 3759 continue hydration with LR and monitor renal function (9) Multisystem organ failure Current Visit: Yes Status: Acute high risk for ARDS continue to monitor CT abd/pelvis (02/16) - L > R pleural effusion with bibasilar atelectasis possible superimposed LLL infiltrate suspicious for superimposed pneumonia oxygen saturations remain 100% on room air (10) Atrial fibrillation Current Visit: Yes Status: Acute no prior history of atrial fibrillation in ED atrial fibrillation with RVR 180s on my exam and upon arrival to ICU patient is atrial fibrillation with rate 80- 90s currently in NSR rate 80 may consider alternative vasopressor such as Phenylephrine or load with Amiodarone if atrial fibrillation with RVR compromises hemodynamics Qualifiers: Atrial fibrillation type: unspecified Qualified Code(s): I48.91 - Unspecified atrial fibrillation (11) Hyperglycemia Current Visit: Yes Status: Resolved no history of diabetes mellitus likely from pancreatitis improved placed on low dose insulin sliding scale Accu check q6 hours (12) Goals of care, counseling/discussion Current Visit: Yes Status: Acute discussed with mother, she does not wish for heroic measures such as CPR if cardiac arrest in the ED she spoke with social media senior associate and signed DNR CCA okay for temporary intubation and mechanical ventilation if necessary as well as surgery palliative consulted to speak with mother (13) Electrolyte abnormality Current Visit: Yes Status: Acute multiple electrolyte abnormalities metabolic acidosis with anion gap 28 likely from lactic acidosis bicarb 11 pending ABG to better assess acid-base status electrolyte repletion orders placed (14) Mental retardation Current Visit: Yes Status: Acute (15) Poor dentition Current Visit: Yes Status: Acute (16) DVT prophylaxis Current Visit: Yes Status: Acute Heparin SQ for DVT prophylaxis PROCESS TRAINER: patient is MRDD and currently at baseline, awake and interactive, appears agitated and may be due to pain and discomfort, Dilaudid prn for pain Pulm: oxygenating well on RA, high risk for development of ARDS, will continue to monitor, ABG with acute metabolic acidosis Cardio: patient is in shock likely distributive from sepsis and or pancreatitis , complicated by atrial fibrillation, hypotensive requiring levophed, goal MAP > 60 FEN-GI: NPO with NG tube for gastric decompression, case discussed with Dr. Epps, surgeon for possible intervention based upon volume resuscitation and decompression. repeat CT abd/pelvis shows markedly improved decompression of the stomach and small bowel, CPK elevated will continue to monitor and fluid hydrate Renal: DEBORAH likely from hypovolemia and possible abdominal compartment syndrome, continue to monitor and fluid resuscitate, ID: blood cultures pending, high probability of bowel ischemia and bacterial translocation, treating broadly with Zosyn Heme/Onc: hemoglobin stable, DVT prophylaxis with Heparin Endo: monitor glucose, ISS Integ/MSK: continue skin care per ICU protocol, no acute issues, soft restraints in place Subjective Principal diagnosis: SBO Interval history: Last night reportedly pulled NG tube but was quickly replaced. NG tube remains in place with good drainage, up to total of 8L. Patient seen and examined at bedside. She is awake and alert. When I ask questions, she simply replies "I want my momma." Abdomen is significantly less distended and firm. Objective PUL Vital signs: Last Vital Signs Temp 97.6 F 02/16/17 06:00 Pulse 100 02/16/17 06:00 Resp 14 02/16/17 06:00 BP 101/65 02/16/17 06:00 Pulse Ox 97 02/16/17 06:00 General appearance: alert (moves all 4 extremities), agitated, appears uncomfortable, other Eyes: nonicteric ENT: other (poor dentition) Neck: supple Effort: normal Auscultation: bilateral: clear Cardiovascular: regular rate and rhythm Gastrointestinal: hypoactive bowel sounds, soft, non-tender, non-distended ( distension improved), other (midline scar) Integumentary: normal Extremities: no cyanosis, no edema, pulses normal, other (AV fistula in the right arm with palpable thrill and audible bruit) Musculoskeletal: no deformities non-focal exam (moves all 4 extremities), pupils equal and round, unable to assess due to mental status (medical condition MRDD) left femoral CVC without signs of infection Results - Laboratory Findings CBC and BMP: 02/16/17 09:27 02/16/17 04:58 ABG ABG pH 7.22 pH Units (7.32-7.45) L 02/15/17 18:50 ABG pCO2 36 mmHg (35-45) 02/15/17 18:50 ABG pO2 91 mmHg (85-104) 02/15/17 18:50 ABG O2 Saturation 95 % (95-98) 02/15/17 18:50 PT/INR, D-dimer PT 11.2 Seconds (9.4-12.1) 02/15/17 17:34 Abnormal lab findings: Abnormal lab results WBC 18.1 K/mcL (4.3-11.1) H 02/15/17 14:45 Hct 49.4 % (35.3-44.9) H 02/15/17 14:45 MCV 104.2 fL (83.0-100.0) H 02/15/17 14:45 MCHC 29.6 g/dL (31.6-35.5) L 02/15/17 14:45 Neutrophils # 14.3 K/mcL (1.6-8.9) H 02/15/17 14:45 ABG pH 7.22 pH Units (7.32-7.45) L 02/15/17 18:50 ABG HCO3 14.7 mEQ/L (21-27) L 02/15/17 18:50 ABG Total CO2 15.8 mEq/L (20-26) L 02/15/17 18:50 ABG Base Excess -12.1 mEq/L (-2.0 to 3.0) L 02/15/17 18:50 Carbon Dioxide 17 mEq/L (19-29) L 02/15/17 22:39 BUN 46 mg/dL (7-20) H 02/15/17 22:39 Creatinine 2.05 mg/dL (0.57-1.11) H 02/15/17 22:39 Est GFR ( Amer) 30 (> 60) L 02/15/17 22:39 Est GFR (Non-Af Amer) 25 (> 60) L 02/15/17 22:39 Glucose 104 mg/dL (70-99) H 02/15/17 22:39 POC Glucose 110 (58-89) H 02/16/17 06:27 Phosphorus 10.7 mg/dL (2.3-4.7) H 02/15/17 14:45 Serum Total Protein 9.0 g/dL (6.0-8.3) H 02/15/17 14:45 Globulin 4.9 g/dL (2.4-3.5) H 02/15/17 14:45 Albumin/Globulin Ratio 0.8 (1.1-2.2) L 02/15/17 14:45 Lipase 2218 Units/L (8-78) H 02/15/17 14:45 - Diagnostic Findings Additional studies: Chest X-Ray 02/15/17 14:46 IMPRESSION: No evidence acute cardiopulmonary process. D/ / Yazmin Tipton MD / Yazmin Tipton MD Interpreting Provider: Yazmin Tipton MD Head CT 02/15/17 15:38 IMPRESSION: Motion limited exam. Atrophy and moderate small vessel ischemic disease. If there is strong clinical concern for acute on chronic ischemia, consider MR. D/ / Patricio Kidd MD / Patricio Kidd MD Interpreting Provider: Patricio Kidd MD X-Ray 02/15/17 16:57 IMPRESSION: Nasogastric tube confirmed in the lumen of the stomach. D/ / Ellis Monroy MD / Ellis Monroy MD Interpreting Provider: Ellis Monroy MD Chest/Abdomen X-ray 02/15/17 18:36 IMPRESSION: Nonspecific bowel gas pattern. Decompression of distended stomach in comparison to prior CT on today's date. NG tube in place. D/ / Ellis Monroy MD / Ellis Monroy MD Interpreting Provider: Ellis Monroy MD Abdomen/Pelvis CT 02/16/17 11:00 IMPRESSION: 1. Left greater than right pleural effusions with bibasilar atelectasis. Additionally, there is superimposed left lower lobe infiltrate which is suspicious for superimposed pneumonia. 2. Marked interval decompression of the stomach and small bowel loops. Oral contrast reaches the ascending colon. 3. Moderate abdominopelvic ascites which has increased from prior study. 4. Colonic diverticulosis without associated acute inflammatory changes. D/ / 02/16/2017 11:55:21 [facility] Dwyer [facility] Interpreting Provider: Misha Dwyer MD - Clinical Findings Intake & Output: Intake & Output 02/15/17 02/15/17 02/16/17 15:59 23:59 07:59 Intake Total 3251 / 4101 1502 / 1502 Output Total 5525 / 7125 450 / 450 Balance -2274 / -3024 1052 / 1052 Weight 49.9 kg
[2017-02-16 10:13] LABS: Basophils % 0.1 %; Hematocrit 38.8 % (35.3-44.9); Hemoglobin 12.8 g/dL (11.5-15.4); Immature Granulocytes % 0.4 % (0-4); Immature Platelets 8.8 % (1.1-6.1); Lymphocytes # 1.3 K/mcL (0.6-4.6); Lymphocytes % 11.7 %; Mean Corpuscular Hemoglobin 31.8 pg (28.0-33.3); Mean Corpuscular Volume 96.3 fL (83.0-100.0); Mean Platelet Volume 11.8 fL (9.4-12.4); Monocytes # 1.1 K/mcL (0.0-1.3); Monocytes % 10.1 %; Neutrophils # 8.8 K/mcL (1.6-8.9); Platelet Count 192 K/mcL (140-400); Red Blood Count 4.03 M/mcL (3.82-4.97); Red Cell Distribution Width 13.3 % (11.5-14.5); Segmented Neutrophils % 77.7 %
[2017-02-16] MEDS ORDERED: Ringers Solution, Lactated 500 ML IVC ONE (10:21)
[2017-02-16 10:23] LABS: Albumin 2.4 g/dL (3.5-5.0); Albumin/Globulin Ratio 0.9 (1.1-2.2); Bilirubin,Direct 0.4 mg/dL (0.0-0.5); Bilirubin,Indirect 0.3 mg/dL (0.0-1.2); Bilirubin,Total 0.7 mg/dL (0.2-1.2); Calcium 8.8 mg/dL (8.6-10.8); Globulin 2.7 g/dL (2.4-3.5); Potassium 4.1 mEq/L (3.5-4.5); Total Protein 5.1 g/dL (6.0-8.3)
[2017-02-16 10:24] LABS: Creatine Kinase 3759 Units/L (29-168); Lipase 184 Units/L (8-78)
[2017-02-16 10:26] LABS: Lactate Dehydrogenase 448 Units/L (159-327)
[2017-02-16] MEDS: Pantoprazole 40 MG VIAL IVPB SCH (10:32)
--- NOTE | 2017-02-16 13:52 | Electrocardiograph Report ---
[address] [place], [place] [address] Test Date: 2017-02-15 Pat Name: Carmen Mcneil Department: 105 Room: [facility] Gender: F Air Filler: MSC : 1955 Requested By: Jasbir Smalls Order Number: [id number] Reading MD: Lars Phillips MD Measurements Intervals [place] Rate: 178 P: SC: 0 QRS: 56 QRSD: 89 T: 237 QT: 232 QTc: 326 Interpretive Statements ATRIAL FIBRILLATION WITH RAPID VENTRICULAR RESPONSE POSSIBLE LVH ST \T\ T WAVE ABNORMALITIES, CONSIDER ISCHEMIA Electronically Signed On 02-16-2017 13:50:51 EDT by Lars Phillips MD
--- NOTE | 2017-02-16 14:08 | Electrocardiograph Report ---
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
[2017-02-16] MEDS ORDERED: Potassium Phosphate 44 MEQ in 0.9 % Sodium Chloride 250 ML IVPB PRN (14:49)
[2017-02-16] MEDS ORDERED: Calcium Gluconate 1,000 MG in D5% in Water 100 ML IVPB PRN (14:49)
[2017-02-16 15:31] LABS: Basophils % 0.1 %; Hematocrit 37.1 % (35.3-44.9); Hemoglobin 12.3 g/dL (11.5-15.4); Immature Granulocytes % 0.4 % (0-4); Lymphocytes % 8.5 %; Mean Corpuscular HGB Conc 33.2 g/dL (31.6-35.5); Mean Corpuscular Hemoglobin 31.6 pg (28.0-33.3); Mean Corpuscular Volume 95.4 fL (83.0-100.0); Mean Platelet Volume 11.8 fL (9.4-12.4); Monocytes # 0.9 K/mcL (0.0-1.3); Monocytes % 7.7 %; Platelet Count 168 K/mcL (140-400); Red Blood Count 3.89 M/mcL (3.82-4.97); Red Cell Distribution Width 13.2 % (11.5-14.5); Segmented Neutrophils % 83.3 %
--- NOTE | 2017-02-16 15:38 | Palliative - Consult Note ---
Date of Encounter: 02/16/17 Time of Encounter: 15:34 - Assessment and Plan (1) Anxiety Current Visit: Yes Status: Acute Assessment and plan: Home medication includes fluoxetine 20 mg daily, and hydroxyzine 25 mg every 6 hours as needed for agitation. Patient was weaned off benzodiazepines last year. Continue to monitor. (2) Goals of care, counseling/discussion Current Visit: Yes Status: Acute Assessment and plan: Goals of care discussion with the patient's mother-Kim. Reviewed physical exam, diagnostic testing, plan of care. Patient's mother confirms CODE STATUS of DNR Comfort Care-Arrest. The palliative care team will continue to follow the patient during admission. Palliative-CN HPI - Data of Consult Patient: new to practice Consult date: 02/16/17 Requesting Physician: Charles Jimenez MD Primary Care Provider: PCP NO - Consult Narrative Palliative Care/Comfort Measures: Palliative care Reason for consult: Goals of Care History of present illness: Ms. Mcneil is a 62 year old female patient initially presented to [facility] with distended abdomen and vomiting. She does have a history of developmental disabilities and resides in the home under the care of her mother. Symptoms have been present for approximately one week, but on the day of admission she vomited and had a syncopal episode. Her mother contacted EMS services and she was brought to the emergency department for further evaluation. In the emergency department, she was found to be hypotensive and required placement of a central line and vasopressor support. CT scan of the abdomen showed high-grade proximal small bowel obstruction. Placement of NG tube was done with drainage of greater than 2 L out of her NG initially. She has had a total of 8.2 L of gastric drainage. Surgical services were consulted and awaiting recommendations. The palliative care team was consulted to establish goals of care. Ms. Mcneil resides in the home with her 79-year-old mother. She has very limited vocabulary. Lifestyle has been relatively sedentary in the past month. Her appetite has been poor over the last week. CC: Charles Jimenez MD Past Med Surg Social Fam HX - Past Medical History Source: old records reviewed, obtained from family Medical history: hypertension, other (MRDD, diverticulosis) Psychiatric history: anxiety - Past Surgical History Surgical History: other (Left knee surgery, oral surgery, nasal surgery, colonoscopy) - Social History Smoking Status: Never smoker Smokeless Tobacco Status: No Alcohol use: none Drug use: none Current living situation: Home, With Family Activity Level: Mostly sedentary Medications and Allergies Acetaminophen [Tylenol] 1,000 mg PO Q4H PRN 02/15/17 [History] Calcium Carbonate/Simethicone [[place] Heartburn+Gas] 1 each PO Q4H PRN [History] Haloperidol [Haldol] 1 mg PO BID 02/15/17 [History] Meloxicam [Mobic] 15 mg PO DAILY PRN 02/15/17 [History] Polyethylene Glycol 3350 [Smoothlax] 17 gm PO DAILY PRN 02/15/17 [History] hydrOXYzine HCl [Hydroxyzine HCl] 12.5 - 50 mg PO Q6H PRN 02/15/17 [History] Allergies No Known Allergies Allergy (Verified 07/16/15 22:23) ROS unobtainable: due to mental status Palliative Care-Exam - Constitutional Vitals: Temp Pulse Resp BP Pulse Ox 98.9 F 72 12 94/54 98 02/16/17 12:14 02/16/17 14:00 02/16/17 14:00 02/16/17 14:00 02/16/17 14:00 General appearance: Present: no acute distress Exam: 62 sotero old female, developmentally delayed appearing ill, NG tube intact - Head Head Exam: Present: atraumatic - Eye Eye exam: Present: EOMI - ENT ENT exam: Present: mucous membranes dry Additional comments: NG tube intact to right nares - Respiratory Respiratory exam: Present: decreased breath sounds. Absent: accessory muscle use, respiratory distress, wheezes, tachypnea - Cardiovascular Cardiovascular exam: Present: RRR - GI/Abdominal Exam GI/Abdominal exam: Present: diminished bowel sounds, soft. Absent: guarding, rigid, tenderness additional comments: NG tube intact draining brown liquid - Rectal Rectal exam: Present: deferred - Catheter Type: Urethral (Vela) - Extremities Exam Extremities exam: Present: normal inspection. Absent: pedal edema - Neurological Exam Neurological exam: Present: alert (opens eyes to voice, does not follow commands , developmentally delayed), strengths equal and symetr throughout - Psychiatric Psychiatric exam: Present: agitated (at times) - Skin Skin exam: Present: dry, warm Internal Medicine - CN: Reslt - Labs CBC & Chem 7: 02/16/17 15:10 02/16/17 04:58 Labs: Short CBC 02/16/17 02/16/17 Range/Units 09:27 15:10 WBC 11.3 H 12.0 H (4.3-11.1) K/mcL Hgb 12.8 D 12.3 (11.5-15.4) g/dL Hct 38.8 37.1 (35.3-44.9) % Plt Count 192 168 (140-400) K/mcL Neutrophils # 8.8 10.0 H (1.6-8.9) K/mcL BMP 02/15/17 02/16/17 22:39 04:58 Sodium 136 D 136 Potassium 4.0 4.1 Chloride 109 110 H Carbon Dioxide 17 L 12 L BUN 46 H 47 H Creatinine 2.05 H 2.33 H Glucose 104 H 108 H Calcium 8.7 D 8.8 Liver Function 02/16/17 Range/Units 04:58 Total Bilirubin 0.7 (0.2-1.2) mg/dL Direct Bilirubin 0.4 (0.0-0.5) mg/dL AST 115 H (5-34) Units/L ALT 37 (0-55) Units/L Alkaline Phosphatase 42 (38-126) Units/L Albumin 2.4 L D (3.5-5.0) g/dL - ABG Interpretation ABG results: ABG ABG pH 7.22 pH Units (7.32-7.45) L 02/15/17 18:50 ABG pCO2 36 mmHg (35-45) 02/15/17 18:50 ABG pO2 91 mmHg (85-104) 02/15/17 18:50 ABG O2 Saturation 95 % (95-98) 02/15/17 18:50 PT/INR, D-dimer PT 11.2 Seconds (9.4-12.1) 02/15/17 17:34 - Impressions Impressions Chest/Abdomen X-ray 02/15/17 18:36 IMPRESSION: Nonspecific bowel gas pattern. Decompression of distended stomach in comparison to prior CT on today's date. NG tube in place. D/ / Ellis Monroy MD / Ellis Monroy MD Interpreting Provider: Ellis Monroy MD Abdomen/Pelvis CT 02/16/17 11:00 IMPRESSION: 1. Left greater than right pleural effusions with bibasilar atelectasis. Additionally, there is superimposed left lower lobe infiltrate which is suspicious for superimposed pneumonia. 2. Marked interval decompression of the stomach and small bowel loops. Oral contrast reaches the ascending colon. 3. Moderate abdominopelvic ascites which has increased from prior study. 4. Colonic diverticulosis without associated acute inflammatory changes. D/ / 02/16/2017 11:55:21 Misha Dwyer MD / [facility] Interpreting Provider: Misha Dwyer MD Consult Discharge Plan - Plan Referrals: NO,PCP [Primary Care Provider] - Palliative Quality Palliative Quality: Screen for Code Status: Yes, Screen for Goals of Care: Yes, Screen for Pain: Yes, If Pain Regimen Started, Initiate Bowel Regimen: NA, Screen for Nausea/Vomitting: Yes
[2017-02-16 15:42] LABS: Albumin 2.2 g/dL (3.5-5.0); Albumin/Globulin Ratio 0.8 (1.1-2.2); Bilirubin,Total 1.1 mg/dL (0.2-1.2); Calcium 8.8 mg/dL (8.6-10.8); Globulin 2.7 g/dL (2.4-3.5); Magnesium 1.8 mg/dL (1.6-2.6); Potassium 4.1 mEq/L (3.5-4.5); Total Protein 4.9 g/dL (6.0-8.3)
--- NOTE | 2017-02-16 15:50 | General Surgery Consult Note ---
<Iman Napier - Last Filed: 02/16/17 17:41> Date of Encounter: 02/16/17 Time of Encounter: 14:00 Assessment and Plan (1) Small bowel obstruction Current Visit: Yes Status: Acute CT of the abdomen shows a high-grade small bowel obstruction with NG output of 7700 mL with marked interval decompression of the stomach and small bowel overnight Abdomen soft, tender, bowel sounds hypoactive/absent. Patient remains hypotensive and is currently on phenylephrine for pressor support. CT findings were discussed with patient's mother and surgery has been recommended to relieve the obstruction. All risks and benefits of the procedure were discussed with the patient's mother and consent was obtained today for surgical intervention tomorrow Questions were answered the mother states understanding and agreement with the plan. Plan: -Keep NPO -Continue NG suction -Continue pain control and IV hydration -AM labs -Plan for gastro-jejunostomy with exploratory laparotomy 02/17/[address] Barnes (2) Acute pancreatitis Current Visit: Yes Status: Acute Qualifiers: Pancreatitis type: unspecified pancreatitis type Acute pancreatitis complication: unspecified Qualified Code(s): K85.90 - Acute pancreatitis without necrosis or infection, unspecified (3) Mental retardation Current Visit: Yes Status: Acute History of Present Illness Consult date: 02/16/17 Reason for consult: abdominal pain Requesting physician: Charles Jimenez History of present illness: Ms. Mcneil is a 62 year old female history of MRDD and irritable bowel syndrome for whom surgery was consulted on for a high-grade small bowel obstruction. History was provided by mother who reports over the past several weeks patient has been ill appearing and complaining of pain. She has history of chronic pain in the knee requiring arthoscopy and thought that was mostly her pain. Over the past week or so she has had diminished oral intake and has been vomiting frequently, described as bile. Patient has been taking Meloxicam for the pain and Hydroxyzine for the agitation. 02/15 around 1300 patient was attempting to eat a hamburger and soup when she vomited and at one point passed out. She was not acting her normal self. Her Mother noticed that her abdomen is more distended than usual called EMS. Upon her arrival to ED, she was hypotensive 70/ 50s and required push dose pressors of Epinephrine. Found to be in atrial fibrillation RVR as high as 180s. Abdomen was severely distended and firm. Labs were significant for leukocytosis, lactic acidosis of 18 with elevated lipase 2218. Given 3L of NS and left femoral CVC placed. NG placed and has had 7L output overnight. Repeat CT reveals decompression, but an obstruction persists in the lower 5th of the duodenum. Her mother denies that the patient has had any fever, chills, bloody stools or black tarry stools. She has noticed decreased urine output as well as lower frequency of BM. Denies any prior abdominal surgeries. Denies tobacco use, or alcohol use. Past Med Surg Social Fam HX - Past Medical History Medical history: hypertension, other Psychiatric history: anxiety - Past Surgical History Surgical History: other - Social History Smoking Status: Never smoker Smokeless Tobacco Status: No Alcohol use: none Drug use: none Medications and Allergies Acetaminophen [Tylenol] 1,000 mg PO Q4H PRN 02/15/17 [History] Calcium Carbonate/Simethicone [[place] Heartburn+Gas] 1 each PO Q4H PRN [History] Haloperidol [Haldol] 1 mg PO BID 02/15/17 [History] Meloxicam [Mobic] 15 mg PO DAILY PRN 02/15/17 [History] Polyethylene Glycol 3350 [Smoothlax] 17 gm PO DAILY PRN 02/15/17 [History] hydrOXYzine HCl [Hydroxyzine HCl] 12.5 - 50 mg PO Q6H PRN 02/15/17 [History] Allergies No Known Allergies Allergy (Verified 07/16/15 22:23) Review of Systems ROS unobtainable: due to mental status All systems PM: A 10-system review of systems was performed and is negative for pertinent findings except as documented above in the HPI. General Surgery Exam Initial Vital Signs Temp Pulse Resp BP Pulse Ox 98.0 F 191 32 106/74 0 02/15/17 14:31 02/15/17 14:31 02/15/17 14:31 02/15/17 14:31 02/15/17 14:31 - General physical appearance moderate distress, severe pain, chronically ill, other (Patient appears uncomfortable and agitated) - ENT dry mucosa - Respiratory normal expansion, normal respiratory effort, clear to auscultation - Cardiovascular Cardiovascular exam: Present: irregular rhythm - Abdomen Abdomen general surgery: Present: bowel sounds present (Hypoactive), soft, tender, surgical scars. Absent: distended Abdominal Tenderness: Present: diffusely - Integumentary Integumentary general surgery: Present: no abnormal pigmentation, other (cool). Absent: diaphoresis - Neurologic Present: confused, disoriented - Psychiatric Psychiatric general surgery: Present: tearful, other (Agitated) - Additional Findings left femoral CVC without signs of infection Exam Initial Vital Signs Temp Pulse Resp BP Pulse Ox 98.0 F 191 32 106/74 0 02/15/17 14:31 02/15/17 14:31 02/15/17 14:31 02/15/17 14:31 02/15/17 14:31 Results - Labs 02/16/17 15:10 02/16/17 15:10 Abnormal lab results WBC 12.0 K/mcL (4.3-11.1) H 02/16/17 15:10 Neutrophils # 10.0 K/mcL (1.6-8.9) H 02/16/17 15:10 Immature Plt Fraction 8.8 % (1.1-6.1) H 02/16/17 09:27 ABG pH 7.22 pH Units (7.32-7.45) L 02/15/17 18:50 ABG HCO3 14.7 mEQ/L (21-27) L 02/15/17 18:50 ABG Total CO2 15.8 mEq/L (20-26) L 02/15/17 18:50 ABG Base Excess -12.1 mEq/L (-2.0 to 3.0) L 02/15/17 18:50 Sodium 132 mEq/L (136-145) L 02/16/17 15:10 BUN 47 mg/dL (7-20) H 02/16/17 15:10 Creatinine 2.58 mg/dL (0.57-1.11) H 02/16/17 15:10 Est GFR ( Amer) 23 (> 60) L 02/16/17 15:10 Est GFR (Non-Af Amer) 19 (> 60) L 02/16/17 15:10 POC Glucose 90 (58-89) H 02/16/17 13:09 Phosphorus 10.7 mg/dL (2.3-4.7) H 02/15/17 14:45 AST 139 Units/L (5-34) H 02/16/17 15:10 Lactate Dehydrogenase 448 Units/L (159-327) H 02/16/17 09:27 Creatine Kinase 3271 Units/L (29-168) H 02/16/17 15:10 Serum Total Protein 4.9 g/dL (6.0-8.3) L 02/16/17 15:10 Albumin 2.2 g/dL (3.5-5.0) L 02/16/17 15:10 Albumin/Globulin Ratio 0.8 (1.1-2.2) L 02/16/17 15:10 Lipase 184 Units/L (8-78) H 02/16/17 09:27 Diabetes panel 02/15/17 02/16/17 02/16/17 Range/Units 22:39 04:58 15:10 Sodium 136 D 136 132 L (136-145) mEq/L Potassium 4.0 4.1 4.1 (3.5-4.5) mEq/L Chloride 109 110 H 104 (98-109) mEq/L Carbon Dioxide 17 L 12 L 19 (19-29) mEq/L BUN 46 H 47 H 47 H (7-20) mg/dL Creatinine 2.05 H 2.33 H 2.58 H (0.57-1.11) mg/dL Glucose 104 H 108 H 98 (70-99) mg/dL Calcium 8.7 D 8.8 8.8 (8.6-10.8) mg/dL AST 115 H 139 H (5-34) Units/L ALT 37 43 (0-55) Units/L Alkaline Phosphatase 42 40 (38-126) Units/L Albumin 2.4 L D 2.2 L (3.5-5.0) g/dL Triglycerides 88 (< 150) mg/dL Calcium panel 02/15/17 02/16/17 02/16/17 Range/Units 22:39 04:58 15:10 Calcium 8.7 D 8.8 8.8 (8.6-10.8) mg/dL Albumin 2.4 L D 2.2 L (3.5-5.0) g/dL Pituitary panel 02/15/17 02/16/17 02/16/17 Range/Units 22:39 04:58 15:10 Sodium 136 D 136 132 L (136-145) mEq/L Potassium 4.0 4.1 4.1 (3.5-4.5) mEq/L Chloride 109 110 H 104 (98-109) mEq/L Carbon Dioxide 17 L 12 L 19 (19-29) mEq/L BUN 46 H 47 H 47 H (7-20) mg/dL Creatinine 2.05 H 2.33 H 2.58 H (0.57-1.11) mg/dL Glucose 104 H 108 H 98 (70-99) mg/dL Calcium 8.7 D 8.8 8.8 (8.6-10.8) mg/dL Adrenal panel 02/15/17 02/16/17 02/16/17 Range/Units 22:39 04:58 15:10 Sodium 136 D 136 132 L (136-145) mEq/L Potassium 4.0 4.1 4.1 (3.5-4.5) mEq/L Chloride 109 110 H 104 (98-109) mEq/L Carbon Dioxide 17 L 12 L 19 (19-29) mEq/L BUN 46 H 47 H 47 H (7-20) mg/dL Creatinine 2.05 H 2.33 H 2.58 H (0.57-1.11) mg/dL Glucose 104 H 108 H 98 (70-99) mg/dL Calcium 8.7 D 8.8 8.8 (8.6-10.8) mg/dL Total Bilirubin 0.7 1.1 D (0.2-1.2) mg/dL AST 115 H 139 H (5-34) Units/L ALT 37 43 (0-55) Units/L Alkaline Phosphatase 42 40 (38-126) Units/L Albumin 2.4 L D 2.2 L (3.5-5.0) g/dL All other labs normal. - Imaging Abdominal x-ray: report reviewed, image reviewed CT scan - abdomen: report reviewed, image reviewed Additional studies: Chest X-Ray 02/15/17 14:46 IMPRESSION: No evidence acute cardiopulmonary process. D/ / Yazmin Tipton MD / Yazmin Tipton MD Interpreting Provider: Yazmin Tipton MD Head CT 05/17/17 15:38 IMPRESSION: Motion limited exam. Atrophy and moderate small vessel ischemic disease. If there is strong clinical concern for acute on chronic ischemia, consider MR. D/ / Patricio Kidd MD / Patricio Kidd MD Interpreting Provider: Patricio Kidd MD X-Ray 02/15/17 16:57 IMPRESSION: Nasogastric tube confirmed in the lumen of the stomach. D/ / Ellis Monroy MD / Ellis Monroy MD Interpreting Provider: Ellis Monroy MD Chest/Abdomen X-ray 02/15/17 18:36 IMPRESSION: Nonspecific bowel gas pattern. Decompression of distended stomach in comparison to prior CT on today's date. NG tube in place. D/ / Ellis Monroy MD / Ellis Monroy MD Interpreting Provider: Ellis Monroy MD Abdomen/Pelvis CT 02/16/17 11:00 IMPRESSION: 1. Left greater than right pleural effusions with bibasilar atelectasis. Additionally, there is superimposed left lower lobe infiltrate which is suspicious for superimposed pneumonia. 2. Marked interval decompression of the stomach and small bowel loops. Oral contrast reaches the ascending colon. 3. Moderate abdominopelvic ascites which has increased from prior study. 4. Colonic diverticulosis without associated acute inflammatory changes. D/ / 02/16/2017 11:55:21 Misha Dwyer MD / linette Interpreting Provider: Misha Dwyer MD Consult Discharge Plan - Plan Referrals: NO,PCP [Primary Care Provider] - <Molly,Dane T - Last Filed: 02/17/17 16:56> Date of Encounter: 02/16/17 Review of Systems All systems PM: A 10-system review of systems was performed and is negative for pertinent findings except as documented above in the HPI. General Surgery Exam Initial Vital Signs Temp Pulse Resp BP Pulse Ox 98.0 F 191 32 106/74 0 02/15/17 14:31 02/15/17 14:31 02/15/17 14:31 02/15/17 14:31 02/15/17 14:31 Exam Initial Vital Signs Temp Pulse Resp BP Pulse Ox 98.0 F 191 32 106/74 0 02/15/17 14:31 02/15/17 14:31 02/15/17 14:31 02/15/17 14:31 02/15/17 14:31 Results - Labs 02/17/17 03:05 02/17/17 03:05 Abnormal lab results RBC 3.38 M/mcL (3.82-4.97) L 02/17/17 03:05 Hgb 10.5 g/dL (11.5-15.4) L D 02/17/17 03:05 Hct 31.6 % (35.3-44.9) L 02/17/17 03:05 Immature Plt Fraction 8.8 % (1.1-6.1) H 02/16/17 09:27 ABG pH 7.22 pH Units (7.32-7.45) L 02/15/17 18:50 ABG HCO3 14.7 mEQ/L (21-27) L 02/15/17 18:50 ABG Total CO2 15.8 mEq/L (20-26) L 02/15/17 18:50 ABG Base Excess -12.1 mEq/L (-2.0 to 3.0) L 02/15/17 18:50 Sodium 130 mEq/L (136-145) L 02/17/17 03:05 BUN 48 mg/dL (7-20) H 02/17/17 03:05 Creatinine 2.89 mg/dL (0.57-1.11) H 02/17/17 03:05 Est GFR ( Amer) 20 (> 60) L 02/17/17 03:05 Est GFR (Non-Af Amer) 17 (> 60) L 02/17/17 03:05 Phosphorus 10.7 mg/dL (2.3-4.7) H 02/15/17 14:45 Magnesium 1.5 mg/dL (1.6-2.6) L 02/17/17 03:05 AST 118 Units/L (5-34) H 02/17/17 03:05 Alkaline Phosphatase 37 Units/L (38-126) L 02/17/17 03:05 Lactate Dehydrogenase 448 Units/L (159-327) H 02/16/17 09:27 Creatine Kinase 1911 Units/L (29-168) H 02/17/17 03:05 Serum Total Protein 4.5 g/dL (6.0-8.3) L 02/17/17 03:05 Albumin 1.9 g/dL (3.5-5.0) L 02/17/17 03:05 Albumin/Globulin Ratio 0.7 (1.1-2.2) L 02/17/17 03:05 Lipase 184 Units/L (8-78) H 02/16/17 09:27 Urine Clarity Cloudy (Clear) A 02/16/17 15:50 Urine Protein 30 mg/dL (Neg-Trace) H 02/16/17 15:50 Urine Blood Large (Negative) H 02/16/17 15:50 Urine Microscopic RBC 50-100 per hpf (0-3) H 02/16/17 15:50 Urine Microscopic WBC 5-15 per hpf (0-3) H 02/16/17 15:50 Ur Squamous Epith Cells Many per lpf (None-Few) H 02/16/17 15:50 Waxy Casts Few per lpf (None Seen) H 02/16/17 15:50 Ur Culture Indicated? YES (NO) A 02/16/17 15:50 Diabetes panel 02/17/17 Range/Units 03:05 Sodium 130 L (136-145) mEq/L Potassium 3.9 (3.5-4.5) mEq/L Chloride 103 (98-109) mEq/L Carbon Dioxide 19 (19-29) mEq/L BUN 48 H (7-20) mg/dL Creatinine 2.89 H (0.57-1.11) mg/dL Glucose 97 (70-99) mg/dL Calcium 8.7 (8.6-10.8) mg/dL AST 118 H (5-34) Units/L ALT 40 (0-55) Units/L Alkaline Phosphatase 37 L (38-126) Units/L Albumin 1.9 L (3.5-5.0) g/dL Calcium panel 02/17/17 Range/Units 03:05 Calcium 8.7 (8.6-10.8) mg/dL Albumin 1.9 L (3.5-5.0) g/dL Pituitary panel 02/17/17 Range/Units 03:05 Sodium 130 L (136-145) mEq/L Potassium 3.9 (3.5-4.5) mEq/L Chloride 103 (98-109) mEq/L Carbon Dioxide 19 (19-29) mEq/L BUN 48 H (7-20) mg/dL Creatinine 2.89 H (0.57-1.11) mg/dL Glucose 97 (70-99) mg/dL Calcium 8.7 (8.6-10.8) mg/dL Adrenal panel 02/17/17 Range/Units 03:05 Sodium 130 L (136-145) mEq/L Potassium 3.9 (3.5-4.5) mEq/L Chloride 103 (98-109) mEq/L Carbon Dioxide 19 (19-29) mEq/L BUN 48 H (7-20) mg/dL Creatinine 2.89 H (0.57-1.11) mg/dL Glucose 97 (70-99) mg/dL Calcium 8.7 (8.6-10.8) mg/dL Total Bilirubin 1.2 (0.2-1.2) mg/dL AST 118 H (5-34) Units/L ALT 40 (0-55) Units/L Alkaline Phosphatase 37 L (38-126) Units/L Albumin 1.9 L (3.5-5.0) g/dL All other labs normal. - Attending Attestation I examined this patient and my medical decision-making was reviewed with the BE[employer]ABYSIT[employer]/PA/Advanced Practice Nurse/Resident Physician. I agree with the documented findings, disposition and treatment plan as described except to the extent set forth below. The patient was seen and evaluated on morning rounds. She has high-grade gastric outlet obstruction. She will require exploratory laparotomy possible gastrojejunostomy when stable. We will plan operating room tomorrow Dane Barnes MD FACS
[2017-02-16 16:39] LABS: Bilirubin,Urine Negative (Negative); Blood,Urine Large (Negative); Clarity,Urine Cloudy (Clear); Color,Urine Yellow (Yellow); Glucose,Urine (UA) Normal (Normal); Ketones,Urine Negative (Negative); Leukocyte Esterase,Urine Negative (Negative); Nitrite,Urine Negative (Negative); Protein,Urine 30 mg/dL (Neg-Trace); Specific Gravity,Urine 1.015 (1.010-1.025); Urobilinogen,Urine Normal (Normal)
[2017-02-16 16:42] LABS: Bacteria,Urine None Seen per hpf (None-Few); Hyaline Casts,Urine None Seen per lpf (None-Few); Squamous Epithelial Cell,Urine Many per lpf (None-Few)
[2017-02-16 16:53] LABS: RBC,Urine 50-100 per hpf (0-3); Waxy Casts,Urine Few per lpf (None Seen)
--- NOTE | 2017-02-16 20:35 | Anesthesia Evaluation PreOp ---
Date of Encounter: 02/16/17 Time of Encounter: 20:33 - Past History Planned Operation: ex lap GJ tube/SBO Cardiac History: HTN, Arrhythmia (AF/rvr), Other (l femoral cvc, phenylephrine gtt at 25mcg/min, no a-line) Pulmonary History: Snore [employer] History: Other (mrdd, anxiety) Other Medical History: Renal (ckd), Other (acute pancreatitis, ngt) Anesthesia History: No Prior Anesthetic Complications, Past Anesthesia Alcohol Use: none Drug use: none Medications and Allergies Acetaminophen [Tylenol] 1,000 mg PO Q4H PRN 02/15/17 [History] Calcium Carbonate/Simethicone [[place] Heartburn+Gas] 1 each PO Q4H PRN [History] Haloperidol [Haldol] 1 mg PO BID 02/15/17 [History] Meloxicam [Mobic] 15 mg PO DAILY PRN 02/15/17 [History] Polyethylene Glycol 3350 [Smoothlax] 17 gm PO DAILY PRN 02/15/17 [History] hydrOXYzine HCl [Hydroxyzine HCl] 12.5 - 50 mg PO Q6H PRN 02/15/17 [History] Allergies No Known Allergies Allergy (Verified 07/16/15 22:23) - Meds/Allergy Pre-op Review Medications Reviewed: Yes Allergies Reviewed: Yes Beta Blockers on Current Med List: No Anesthesia Results - Labs 02/16/17 15:10 02/16/17 15:10 - Imaging EKG: report reviewed (ST, poss inflat ischemia) Anesthesia Exam O2 Sat Weight 42.9 kg Weight 49.9 kg O2 Sat by Pulse Oximetry 95 O2 Sat by Pulse Oximetry 99 O2 Sat by Pulse Oximetry 93 O2 Sat by Pulse Oximetry 93 O2 Sat by Pulse Oximetry 99 O2 Sat by Pulse Oximetry 96 O2 Sat by Pulse Oximetry 98 O2 Sat by Pulse Oximetry 96 O2 Sat by Pulse Oximetry 97 O2 Sat by Pulse Oximetry 98 O2 Sat by Pulse Oximetry 98 O2 Sat by Pulse Oximetry 97 O2 Sat by Pulse Oximetry 98 O2 Sat by Pulse Oximetry 98 O2 Sat by Pulse Oximetry 97 O2 Sat by Pulse Oximetry 97 O2 Sat by Pulse Oximetry 100 O2 Sat by Pulse Oximetry 98 O2 Sat by Pulse Oximetry 100 O2 Sat by Pulse Oximetry 96 O2 Sat by Pulse Oximetry 98 O2 Sat by Pulse Oximetry 96 O2 Sat by Pulse Oximetry 99 O2 Sat by Pulse Oximetry 100 O2 Sat by Pulse Oximetry 100 O2 Sat by Pulse Oximetry 100 O2 Sat by Pulse Oximetry 100 Vital Signs Temp Pulse Resp BP Pulse Ox 98.0 F 191 32 106/74 0 02/15/17 14:31 02/15/17 14:31 02/15/17 14:31 02/15/17 14:31 02/15/17 14:31 Vital Signs/O2 Sat/Glucose, Most Current Temp Pulse Resp BP Pulse Ox 02/16/17 20:06 98.9 F 88 15 84/52 95 02/16/17 19:02 77 13 100/65 99 02/16/17 18:00 77 13 100/65 99 02/16/17 17:00 98.0 F 78 12 96/61 96 Height: 1.63 Weight: 43 NPO (# of Hours): >8 - HEENT Pupil (Motor): Pupils equal, EOMI Mallampati: III (diff to assess) Teeth: Poor dentition - [employer] LOC: Uncooperative [employer] Motor: Deficit RUE, Deficit LUE, Deficit RLE, Deficit LLE, Deficit Face [employer] Sensory: Deficit: RUE, LUE, RLE, LLE, Face - Cardiac Rhythm: Irregular Murmur: None - Pulmonary Breath Sounds: bilateral Clear Respiratory Effort: Symmetrical Anesthesia Assess/Plan ASA Score: 5 (*POA not present to sign consent*) Modified [place] Scale for Level of Consciousness: Cooperative, oriented, and tranquil Anesthetic Plan: General Monitoring Plan: Standard Monitors Recovery Plan: PACU
[2017-02-17] MEDS: Ringers Solution, Lactated 1,000 ML IVC SCH ×2 (00:58→18:21)
[2017-02-17 03:10] LABS: Basophils % 0.1 %; Hematocrit 31.6 % (35.3-44.9); Hemoglobin 10.5 g/dL (11.5-15.4); Immature Granulocytes % 0.4 % (0-4); Lymphocytes # 0.8 K/mcL (0.6-4.6); Lymphocytes % 7.5 %; Mean Corpuscular HGB Conc 33.2 g/dL (31.6-35.5); Mean Corpuscular Hemoglobin 31.1 pg (28.0-33.3); Mean Corpuscular Volume 93.5 fL (83.0-100.0); Mean Platelet Volume 11.5 fL (9.4-12.4); Monocytes # 0.9 K/mcL (0.0-1.3); Monocytes % 8.1 %; Neutrophils # 8.9 K/mcL (1.6-8.9); Platelet Count 141 K/mcL (140-400); Red Blood Count 3.38 M/mcL (3.82-4.97); Red Cell Distribution Width 13.1 % (11.5-14.5); Segmented Neutrophils % 83.9 %
[2017-02-17 03:27] LABS: Albumin/Globulin Ratio 0.7 (1.1-2.2); Bilirubin,Direct 0.5 mg/dL (0.0-0.5); Bilirubin,Indirect 0.7 mg/dL (0.0-1.2); Bilirubin,Total 1.2 mg/dL (0.2-1.2); Calcium 8.7 mg/dL (8.6-10.8); Globulin 2.6 g/dL (2.4-3.5); Potassium 3.9 mEq/L (3.5-4.5); Total Protein 4.5 g/dL (6.0-8.3)
[2017-02-17 03:28] LABS: Albumin 1.9 g/dL (3.5-5.0)
[2017-02-17] MEDS: Insulin LISPRO 300 UNITS/3 ML VIAL SQ SCH ×3 (05:00→18:20)
[2017-02-17] MEDS: *HR* Heparin 5,000 UNIT/ML VIAL SQ SCH ×2 (05:06→18:25)
--- NOTE | 2017-02-17 06:33 | Pulmonology Progress Note ---
<BarbaraCharles W - Last Filed: 02/17/17 11:29> Date of Encounter: 02/17/17 Objective PUL Vital signs: Last Vital Signs Temp 99.6 F 02/17/17 08:41 Pulse 83 02/17/17 09:17 Resp 20 02/17/17 09:17 BP 111/71 02/17/17 09:17 Pulse Ox 99 02/17/17 09:17 Results - Laboratory Findings CBC and BMP: 02/17/17 03:05 02/17/17 03:05 ABG ABG pH 7.22 pH Units (7.32-7.45) L 02/15/17 18:50 ABG pCO2 36 mmHg (35-45) 02/15/17 18:50 ABG pO2 91 mmHg (85-104) 02/15/17 18:50 ABG O2 Saturation 95 % (95-98) 02/15/17 18:50 PT/INR, D-dimer PT 11.2 Seconds (9.4-12.1) 02/15/17 17:34 Abnormal lab findings: Abnormal lab results RBC 3.38 M/mcL (3.82-4.97) L 02/17/17 03:05 Hgb 10.5 g/dL (11.5-15.4) L D 02/17/17 03:05 Hct 31.6 % (35.3-44.9) L 02/17/17 03:05 Immature Plt Fraction 8.8 % (1.1-6.1) H 02/16/17 09:27 ABG pH 7.22 pH Units (7.32-7.45) L 02/15/17 18:50 ABG HCO3 14.7 mEQ/L (21-27) L 02/15/17 18:50 ABG Total CO2 15.8 mEq/L (20-26) L 02/15/17 18:50 ABG Base Excess -12.1 mEq/L (-2.0 to 3.0) L 02/15/17 18:50 Sodium 130 mEq/L (136-145) L 02/17/17 03:05 BUN 48 mg/dL (7-20) H 02/17/17 03:05 Creatinine 2.89 mg/dL (0.57-1.11) H 02/17/17 03:05 Est GFR ( Amer) 20 (> 60) L 02/17/17 03:05 Est GFR (Non-Af Amer) 17 (> 60) L 02/17/17 03:05 POC Glucose 98 (58-89) H 02/16/17 22:49 Phosphorus 10.7 mg/dL (2.3-4.7) H 02/15/17 14:45 Magnesium 1.5 mg/dL (1.6-2.6) L 02/17/17 03:05 AST 118 Units/L (5-34) H 02/17/17 03:05 Alkaline Phosphatase 37 Units/L (38-126) L 02/17/17 03:05 Lactate Dehydrogenase 448 Units/L (159-327) H 02/16/17 09:27 Creatine Kinase 1911 Units/L (29-168) H 02/17/17 03:05 Serum Total Protein 4.5 g/dL (6.0-8.3) L 02/17/17 03:05 Albumin 1.9 g/dL (3.5-5.0) L 02/17/17 03:05 Albumin/Globulin Ratio 0.7 (1.1-2.2) L 02/17/17 03:05 Lipase 184 Units/L (8-78) H 02/16/17 09:27 Urine Clarity Cloudy (Clear) A 02/16/17 15:50 Urine Protein 30 mg/dL (Neg-Trace) H 02/16/17 15:50 Urine Blood Large (Negative) H 02/16/17 15:50 Urine Microscopic RBC 50-100 per hpf (0-3) H 02/16/17 15:50 Urine Microscopic WBC 5-15 per hpf (0-3) H 02/16/17 15:50 Ur Squamous Epith Cells Many per lpf (None-Few) H 02/16/17 15:50 Waxy Casts Few per lpf (None Seen) H 02/16/17 15:50 Ur Culture Indicated? YES (NO) A 02/16/17 15:50 - Clinical Findings Intake & Output: Intake & Output 02/16/17 02/17/17 02/17/17 23:59 07:59 15:59 Intake Total 602 / 602 1100 / 1100 Output Total 850 / 850 250 / 250 300 / 300 Balance -248 / -248 850 / 850 -300 / -300 Consult Discharge Plan - Plan Referrals: NO,PCP [Primary Care Provider] - - Attending Attestation I examined this patient and my medical decision-making was reviewed with the PRINT JOURNALIST/PA/Advanced Practice Nurse/Resident Physician. I agree with the documented findings, disposition and treatment plan as described except to the extent set forth below. Patient seen and examined at bedside Labs, radiology, chart personally reviewed. All lines examined without evidence of infection. Neuropsych: Patient has MDR at baseline currently awake alert more comfortable appearing today. Pulm: Oxygenating well on room air at present. High risk for development of ARDS continue to monitor. Cards: Distributive shock likely secondary to sepsis weaned of vasopresor support today goal MAP >60. Remains in sinus rhythm FEN-GI: NPO for gastric outlet obstruction. seen by surgery plan for Gastrojejunostomy today. Renal: Oliguric DEBORAH which is likely multifactorial including hypotension and possible abdominal compartment syndrome complicated by mild Rhabdo. GFR worse today but UOP has improved. cont IV fluids until CPK normalizes. ID: Suspect intrabdominal bowel sourse of sepsis or less possible Aspiration PNA. On appropriate antimicrobial coverage with Pip/Tazo. Cont to f/u cultures ( NGTD) Heme/Onc: DVT prophylaxis given Endo: Glucose monitored Integ/MSK: Skin care per ICU protocol to prevent ulcers CODE: DNAR Mother updated <Manjit Ortega - Last Filed: 02/17/17 11:43> Date of Encounter: 02/17/17 Time of Encounter: 06:33 Assessment and Plan (1) Small bowel obstruction Current Visit: Yes Status: Acute high-grade small bowel obstruction visualized on CT abdomen and pelvis 02/15 abdomen soft with hypoactive/absent bowel sounds gastric output continues surgery consulted and will continue to follow recommendations - plan fr gastro-jejunostomy with ex lap 02/[address] Barnes - continue bowel decompression with NG tube - repeat CT abd/pelvis with oral contrast (02/16) - marked interval decompression of the stomach and small bowel as the oral contrast reaches ascending colon, also superimposed left lower lobe infiltrate suspicious for superimposed pneumonia lactate normalized to 1.4 CPK improving 1911 (3271) will continue maintenance fluid (2) Septic shock Current Visit: Yes Status: Acute improving leukocytosis resolved 10.6 lactate downtrened t 1.4 aggressively fluid resuscitated with 4L bolus NS and currently maintenance - continue strict I/Os - aim for goal net 0 balance daily plan to wean off phenylephrine, currently on 25 mcg goal MAP >60 shock likely secondary to sepsis and/or pancreatitis blood cultures x2 (02/15) NGTD continue Zosyn day 3 (3) Shock Current Visit: Yes Status: Acute shock most likely distributive possibly from sepsis or pancreatitis will treat like septic per guidelines and de-escalate antibiotics will continue Zosyn day 3, concerning for GI infection from SBO left femoral central venous catheter placed currently receiving phenylephrine for pressure support will obtain additional venous access MAP >60 continue on maintenance LR 75 cc/hr (4) Acute pancreatitis Current Visit: Yes Status: Acute elevated lipase 2218 and abdominal tenderness - lipase improved to 184 suspect cause is from mass effect/obstruction triglycerides 88 BISAP score 3 Fernwood's criteria 4 Qualifiers: Pancreatitis type: unspecified pancreatitis type Acute pancreatitis complication: unspecified Qualified Code(s): K85.90 - Acute pancreatitis without necrosis or infection, unspecified (5) Lactic acidosis Current Visit: Yes Status: Resolved initial 18 - downtrended to 1.4 received total of 4 L fluid resuscitation and currently on LR maintenance continue to monitor UOP for appropriate perfusion concerning for ischemic colitis secondary to suspected abdominal compartment syndrome surgery consulted (6) Metabolic acidosis Current Visit: Yes Status: Acute Anion gap improved to 8 secondary to lactic acidosis which is resolving (7) Acute kidney injury Current Visit: Yes Status: Acute Creatinine 2.89 (2.33) likely multifactorial due to a prerenal etiology from decrease cardiac output with atrial fibrillation, hypovolemia, or possible abdominal compartment syndrome CK elevated but continues to downtrend 1911 continue to monitor UOP 450 cc today, 500 cc yesterday strict I/Os aim for net balance daily (8) Elevated CPK Current Visit: Yes Status: Acute elevated CPK 3759 improved to 1911 continue hydration with LR and monitor renal function (9) Multisystem organ failure Current Visit: Yes Status: Acute high risk for ARDS continue to monitor CT abd/pelvis (02/16) - L > R pleural effusion with bibasilar atelectasis possible superimposed LLL infiltrate suspicious for superimposed pneumonia oxygen saturations remain 100% on room air (10) Atrial fibrillation Current Visit: Yes Status: Acute no prior history of atrial fibrillation in ED atrial fibrillation with RVR 180s on my exam and upon arrival to ICU patient is atrial fibrillation with rate 80- 90s currently in NSR rate 80 phenylephrine for vasopressor support with atrial fibrillation and septic shock - will continue to wean off, 25 mcg Qualifiers: Atrial fibrillation type: unspecified Qualified Code(s): I48.91 - Unspecified atrial fibrillation (11) Goals of care, counseling/discussion Current Visit: Yes Status: Acute discussed with mother, she does not wish for heroic measures such as CPR if cardiac arrest in the ED she spoke with social sciences lecturer and signed DNR CCA okay for temporary intubation and mechanical ventilation if necessary as well as surgery palliative consulted to speak with mother (12) Electrolyte abnormality Current Visit: Yes Status: Acute multiple electrolyte abnormalities continue to monitor and replete PRN electrolyte repletion orders placed (13) Mental retardation Current Visit: Yes Status: Acute (14) Poor dentition Current Visit: Yes Status: Acute (15) DVT prophylaxis Current Visit: Yes Status: Acute scheduled for surgery today, heparin DC and ICDs placed CONVOLUTE TUBE WINDER: patient is MRDD and currently at baseline, awake and interactive, Dilaudid prn for pain Pulm: oxygenating well on RA, high risk for development of ARDS, will continue to monitor, ABG with acute metabolic acidosis Cardio: patient is in shock likely distributive from sepsis and or pancreatitis , complicated by atrial fibrillation currently NSR, off vasopressors, goal MAP > 60 FEN-GI: NPO with NG tube for gastric decompression, case discussed with surgery , scheduled gastro-jejunostomy 02/17. repeat CT abd/pelvis shows markedly improved decompression of the stomach and small bowel, CPK elevated will continue to monitor and fluid hydrate Renal: DEBORAH likely from hypovolemia and possible abdominal compartment syndrome, continue to monitor and fluid resuscitate, ID: blood cultures NGTD, high probability of bowel ischemia and bacterial translocation, treating broadly with Zosyn day 3 for possible aspiration seen on CT Heme/Onc: hemoglobin stable, DVT prophylaxis with ICDs Endo: monitor glucose, ISS Integ/MSK: continue skin care per ICU protocol, no acute issues, soft restraints in place Subjective Principal diagnosis: SBO Interval history: No major events overnight. Attempted to wean off pressors, BP low SBP 80s but maintained MAP >60. Urine output diminished when off the phenylephrine. Currently on 25 mcg with good UOP. NG tube remains in place with good drainage, up to total of 8L. Patient seen and examined at bedside. Examination is limited by mental development. She is awake and alert. Denies any pain when I ask, continues to request for her mom. Upon abdominal examination and palpation she does not appear to be in any discomfort. Objective PUL Vital signs: Last Vital Signs Temp 99.1 F 02/17/17 05:00 Pulse 93 02/17/17 06:07 Resp 16 02/17/17 06:07 BP 111/73 02/17/17 06:07 Pulse Ox 92 02/17/17 06:07 General appearance: alert (moves all 4 extremities), agitated, appears uncomfortable, other (limited due to mental development delay) Eyes: nonicteric ENT: oropharynx dry, other (NG tube in right nare, poor dentition) Neck: supple Effort: normal Auscultation: bilateral: clear Cardiovascular: regular rate and rhythm Gastrointestinal: hypoactive bowel sounds, soft, non-tender, non-distended Integumentary: normal Extremities: no edema, no clubbing, pink and warm Musculoskeletal: no deformities, ROM normal non-focal exam, unable to assess due to mental status left femoral CVC without signs of infection Results - Laboratory Findings CBC and BMP: 02/17/17 03:05 02/17/17 03:05 ABG ABG pH 7.22 pH Units (7.32-7.45) L 02/15/17 18:50 ABG pCO2 36 mmHg (35-45) 02/15/17 18:50 ABG pO2 91 mmHg (85-104) 02/15/17 18:50 ABG O2 Saturation 95 % (95-98) 02/15/17 18:50 PT/INR, D-dimer PT 11.2 Seconds (9.4-12.1) 02/15/17 17:34 Abnormal lab findings: Abnormal lab results RBC 3.38 M/mcL (3.82-4.97) L 02/17/17 03:05 Hgb 10.5 g/dL (11.5-15.4) L D 02/17/17 03:05 Hct 31.6 % (35.3-44.9) L 02/17/17 03:05 Immature Plt Fraction 8.8 % (1.1-6.1) H 02/16/17 09:27 ABG pH 7.22 pH Units (7.32-7.45) L 02/15/17 18:50 ABG HCO3 14.7 mEQ/L (21-27) L 02/15/17 18:50 ABG Total CO2 15.8 mEq/L (20-26) L 02/15/17 18:50 ABG Base Excess -12.1 mEq/L (-2.0 to 3.0) L 02/15/17 18:50 Sodium 130 mEq/L (136-145) L 02/17/17 03:05 BUN 48 mg/dL (7-20) H 02/17/17 03:05 Creatinine 2.89 mg/dL (0.57-1.11) H 02/17/17 03:05 Est GFR ( Amer) 20 (> 60) L 02/17/17 03:05 Est GFR (Non-Af Amer) 17 (> 60) L 02/17/17 03:05 POC Glucose 98 (58-89) H 02/16/17 22:49 Phosphorus 10.7 mg/dL (2.3-4.7) H 02/15/17 14:45 AST 118 Units/L (5-34) H 02/17/17 03:05 Alkaline Phosphatase 37 Units/L (38-126) L 02/17/17 03:05 Lactate Dehydrogenase 448 Units/L (159-327) H 02/16/17 09:27 Creatine Kinase 3271 Units/L (29-168) H 02/16/17 15:10 Serum Total Protein 4.5 g/dL (6.0-8.3) L 02/17/17 03:05 Albumin 1.9 g/dL (3.5-5.0) L 02/17/17 03:05 Albumin/Globulin Ratio 0.7 (1.1-2.2) L 02/17/17 03:05 Lipase 184 Units/L (8-78) H 02/16/17 09:27 Urine Clarity Cloudy (Clear) A 02/16/17 15:50 Urine Protein 30 mg/dL (Neg-Trace) H 02/16/17 15:50 Urine Blood Large (Negative) H 02/16/17 15:50 Urine Microscopic RBC 50-100 per hpf (0-3) H 02/16/17 15:50 Urine Microscopic WBC 5-15 per hpf (0-3) H 02/16/17 15:50 Ur Squamous Epith Cells Many per lpf (None-Few) H 02/16/17 15:50 Waxy Casts Few per lpf (None Seen) H 02/16/17 15:50 Ur Culture Indicated? YES (NO) A 02/16/17 15:50 - Clinical Findings Intake & Output: Intake & Output 02/16/17 02/16/17 02/17/17 15:59 23:59 07:59 Intake Total 602 / 602 602 / 602 1100 / 1100 Output Total 550 / 550 850 / 850 250 / 250 Balance 52 / 52 -248 / -248 850 / 850 Weight 42.9 kg
[2017-02-17] MEDS: Piperacillin/Tazobactam 3.375 GM in D5% in Water (Mini-Bag+) 100 ML IVPB SCH ×2 (08:29→18:25)
[2017-02-17] MEDS: Pantoprazole 40 MG VIAL IVPB SCH (08:29)
[2017-02-17 08:59] LABS: Magnesium 1.5 mg/dL (1.6-2.6)
[2017-02-17] MEDS ORDERED: Magnesium Sulfate 2 GM in D5% in Water 100 ML IVPB ONE (10:31)
[2017-02-17] MEDS: *HR* HYDROmorphone (PF) 1 MG/ML SYRINGE IVP PRN (11:17)
[2017-02-17] MEDS ORDERED: *HR* FentaNYL (PF) 100 MCG/2 ML VIAL ONE (14:36)
[2017-02-17] MEDS ORDERED: Ondansetron 4 MG/2 ML VIAL ONE ×2 (15:38→16:16)
[2017-02-17] MEDS ORDERED: *HR* Rocuronium Bromide 50 MG/5 ML VIAL ONE (15:39)
[2017-02-17] MEDS ORDERED: *HR* Succinylcholine 200 MG/10 ML VIAL IVP ONE (15:39)
[2017-02-17] MEDS ORDERED: Lidocaine -MPF 2% 2 ML VIAL ONE (16:16)
[2017-02-17] MEDS: *HR* Dextrose 50 % in Water (Syg) 50 ML SYRINGE IVP PRN (17:00)
[2017-02-17] MEDS ORDERED: Lacri-Lube 3.5 GM TUBE BOTH EYES PRN (17:02)
--- NOTE | 2017-02-17 17:04 | Operative Note ---
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 The abdomen was prepped and draped in sterile fashion utilizing ChloraPrep standard draping techniques timeout was taken patient was identified. I made a vertical midline incision. There is ascites in the abdomen. There were enormous areas of necrosis full thickness on the greater curvature the stomach. These areas and necrosis extended all the way to the gastroesophageal junction. I divided the omentum between the stomach and transverse colon and entered the lesser sac. I continued this division of the omentum all the way to the short gastrics. Short gastrics were then divided. The entire length of the greater curvature had full-thickness necrosis. There is a small area of viable stomach just distal to the gastroesophageal junction. I noticed that the lesser curvature side of the gastroesophageal junction down onto the lesser curvature was intact and the stomach along the lesser curvature seemed to have adequate blood supply. To address this problem I could perform subtotal gastrectomy and staple off the end of the esophagus or I could perform a modified sleeve resection resecting all of the necrotic tissue. I selected the option that gave gastrointestinal continuity. I decided to perform a modified sleeve resection. I used the green load ARIANNA with the longest staple legs to divide the greater curvature and antrum and this was angled just off the lesser curvature all the way to the cardia 4 staple loads. I was able to place the nasogastric tube in continuity through the esophagus and through the entire length of the closure. The staple line was intact however there was visible black necrotic mucosa in some of the josh however the seromuscular layer appeared to be viable. Because of this I decided to bring the patient back at 48 hours for reexploration. During the resection her blood pressure fell twice in the 60s and responded to palmira Synephrine drip. Because of her labile blood pressure I made a quick exploration of the remainder of the stomach. There were no areas of obstruction. Performed a full Koegel maneuver. There were no areas anal obstruction. There were no pancreatic masses. The small bowel had no evidence of obstruction from proximal to distal. The primary problem appeared to be gastric necrosis. There is no evidence of volvulus at time of exploration. However, volvulus remains the primary suspected cause for diffuse gastric necrosis. The abdomen was closed with looped 0 PDS and the skin with skin clips with planned reexploration of 48-72 hours patient stable.
[2017-02-17] MEDS ORDERED: EPHEDrine 50 MG/ML VIAL ONE (17:07)
[2017-02-17] MEDS ORDERED: *HR* Dextrose 50 % in Water (Syg) 50 ML SYRINGE ONE (17:07)
[2017-02-17] MEDS ORDERED: D5% in Water 1,000 ML IVC PRN ×2 (17:09→17:10)
[2017-02-17 17:48] LABS: Hemoglobin 11.6 g/dL (11.5-15.4); Immature Granulocytes % 0.3 % (0-4); Lymphocytes # 0.6 K/mcL (0.6-4.6); Lymphocytes % 7.1 %; Mean Corpuscular HGB Conc 34.1 g/dL (31.6-35.5); Mean Corpuscular Hemoglobin 31.6 pg (28.0-33.3); Mean Corpuscular Volume 92.6 fL (83.0-100.0); Mean Platelet Volume 11.7 fL (9.4-12.4); Monocytes # 0.1 K/mcL (0.0-1.3); Monocytes % 1.4 %; Neutrophils # 7.9 K/mcL (1.6-8.9); Platelet Count 147 K/mcL (140-400); Red Blood Count 3.67 M/mcL (3.82-4.97); Red Cell Distribution Width 13.2 % (11.5-14.5); Segmented Neutrophils % 91.2 %
[2017-02-17] MEDS: FentaNYL (PF) 1,000 MCG in 0.9 % Sodium Chloride 80 ML IVC SCH ×2 (17:50→22:37)
[2017-02-17 17:56] LABS: Calcium 8.2 mg/dL (8.6-10.8); Potassium 3.6 mEq/L (3.5-4.5)
[2017-02-17 18:05] LABS: ABG Base Excess -8.9 mEq/L (-2.0 to 3.0); ABG HCO3 15.6 mEQ/L (21-27); ABG Oxygen Saturation 100 % (95-98); ABG PCO2 29 mmHg (35-45); ABG PH 7.34 pH Units (7.32-7.45); ABG PO2 178 mmHg (85-104); ABG TCO2 16.5 mEq/L (20-26)
[2017-02-17 18:06] LABS: Blood Gas FiO2 60 %
[2017-02-17] MEDS: *HR* Midazolam HCl 2 MG/2 ML VIAL IVP PRN ×2 (18:13→22:43)
[2017-02-17] MEDS: Phenylephrine 20 MG in D5% in Water 500 ML IVC SCH (19:32)
[2017-02-17] MEDS: Chlorhexidine Rinse 15 ML MOUTHWASH MM SCH (19:55)
[2017-02-17] MEDS: Lacri-Lube 3.5 GM TUBE BOTH EYES SCH (19:55)
[2017-02-17] MEDS: Magnesium Sulfate 2 GM in D5% in Water 100 ML IVPB PRN (21:03)
[2017-02-18] MEDS: *HR* Midazolam HCl 2 MG/2 ML VIAL IVP PRN (00:07)
[2017-02-18] MEDS: Insulin LISPRO 300 UNITS/3 ML VIAL SQ SCH ×4 (00:08→18:09)
[2017-02-18] MEDS: Phenylephrine 20 MG in D5% in Water 500 ML IVC SCH ×5 (00:49→23:44)
[2017-02-18] MEDS: Lacri-Lube 3.5 GM TUBE BOTH EYES SCH ×6 (00:52→19:47)
[2017-02-18] MEDS: FentaNYL (PF) 3,000 MCG in 0.9 % Sodium Chloride 240 ML IVC SCH ×2 (04:34→23:45)
[2017-02-18 04:37] LABS: Hematocrit 33.7 % (35.3-44.9); Hemoglobin 11.4 g/dL (11.5-15.4); Immature Granulocytes % 0.6 % (0-4); Lymphocytes % 11.3 %; Mean Corpuscular HGB Conc 33.8 g/dL (31.6-35.5); Mean Corpuscular Hemoglobin 31.1 pg (28.0-33.3); Mean Corpuscular Volume 92.1 fL (83.0-100.0); Mean Platelet Volume 11.5 fL (9.4-12.4); Monocytes # 0.5 K/mcL (0.0-1.3); Neutrophils # 7.5 K/mcL (1.6-8.9); Platelet Count 182 K/mcL (140-400); Red Blood Count 3.66 M/mcL (3.82-4.97); Red Cell Distribution Width 13.2 % (11.5-14.5); Segmented Neutrophils % 83.1 %
[2017-02-18] MEDS: Piperacillin/Tazobactam 3.375 GM in D5% in Water (Mini-Bag+) 100 ML IVPB SCH ×2 (04:37→16:26)
[2017-02-18 04:52] LABS: Calcium 8.4 mg/dL (8.6-10.8); Magnesium 2.4 mg/dL (1.6-2.6); Phosphorous 3.3 mg/dL (2.3-4.7); Potassium 4.1 mEq/L (3.5-4.5)
[2017-02-18] MEDS ORDERED: 0.9 % Sodium Chloride 500 ML IVC ONE (05:14)
[2017-02-18] MEDS ORDERED: 0.9 % Sodium Chloride 500 ML ONE (05:16)
[2017-02-18] MEDS: *HR* Heparin 5,000 UNIT/ML VIAL SQ SCH ×2 (05:37→19:16)
[2017-02-18 05:57] LABS: ABG Base Excess -7.8 mEq/L (-2.0 to 3.0); ABG HCO3 18.3 mEQ/L (21-27); ABG Oxygen Saturation 81 % (95-98); ABG PCO2 39 mmHg (35-45); ABG PH 7.28 pH Units (7.32-7.45); ABG PO2 52 mmHg (85-104); ABG TCO2 19.5 mEq/L (20-26); Blood Gas FiO2 40 %
--- NOTE | 2017-02-18 07:01 | Pulmonology Progress Note ---
<BarbaraCharles W - Last Filed: 02/18/17 09:36> Date of Encounter: 02/18/17 Objective PUL Vital signs: Last Vital Signs Temp 98 F 02/18/17 07:36 Pulse 84 02/18/17 07:36 Resp 20 02/18/17 07:44 BP 92/58 02/18/17 07:44 Pulse Ox 100 02/18/17 07:44 Ventilator Settings Ventilator Settings: Ventilator Settings, Last 8 Hours Ventilator Mode A/C Ventilator Mode A/C Ventilator Mode A/C Ventilator Mode A/C Ventilator Mode A/C Ventilator Mode A/C Ventilator Mode A/C Ventilator Mode A/C Ventilator Mode A/C Ventilator Mode A/C Ventilator Mode A/C Ventilator Tidal Volume 400 Setting Ventilator Tidal Volume 400 Setting Ventilator Tidal Volume 400 Setting Ventilator Tidal Volume 400 Setting Ventilator Tidal Volume 400 Setting Ventilator Tidal Volume 400 Setting Ventilator Tidal Volume 400 Setting Ventilator Tidal Volume 400 Setting Ventilator Tidal Volume 400 Setting Ventilator Tidal Volume 400 Setting Ventilator Tidal Volume 400 Setting Ventilator Respiratory Rate 18 Setting Ventilator Respiratory Rate 18 Setting Ventilator Respiratory Rate 18 Setting Ventilator Respiratory Rate 18 Setting Ventilator Respiratory Rate 18 Setting Ventilator Respiratory Rate 18 Setting Ventilator Respiratory Rate 18 Setting Ventilator Respiratory Rate 18 Setting Ventilator Respiratory Rate 18 Setting Ventilator Respiratory Rate 18 Setting Ventilator Respiratory Rate 18 Setting Actual Respiratory Rate 22 Actual Respiratory Rate 18 Actual Respiratory Rate 21 Actual Respiratory Rate 18 Positive End Expiratory 5 Pressure Positive End Expiratory 5 Pressure Positive End Expiratory 5 Pressure Positive End Expiratory 5 Pressure Positive End Expiratory 5 Pressure Positive End Expiratory 5 Pressure Positive End Expiratory 5 Pressure Positive End Expiratory 5 Pressure Positive End Expiratory 5 Pressure Positive End Expiratory 5 Pressure Positive End Expiratory 5 Pressure Peak Inspiratory Airway 25 Pressure Peak Inspiratory Airway 20 Pressure Peak Inspiratory Airway 21 Pressure Peak Inspiratory Airway 21 Pressure Results - Laboratory Findings CBC and BMP: 02/18/17 04:20 02/18/17 04:20 ABG ABG pH 7.28 pH Units (7.32-7.45) L 02/18/17 05:50 ABG pCO2 39 mmHg (35-45) 02/18/17 05:50 ABG pO2 52 mmHg (85-104) L 02/18/17 05:50 ABG O2 Saturation 81 % (95-98) L 02/18/17 05:50 PT/INR, D-dimer PT 11.2 Seconds (9.4-12.1) 02/15/17 17:34 Abnormal lab findings: Abnormal lab results RBC 3.66 M/mcL (3.82-4.97) L 02/18/17 04:20 Hgb 11.4 g/dL (11.5-15.4) L 02/18/17 04:20 Hct 33.7 % (35.3-44.9) L 02/18/17 04:20 Immature Plt Fraction 8.8 % (1.1-6.1) H 02/16/17 09:27 ABG pH 7.28 pH Units (7.32-7.45) L 02/18/17 05:50 ABG pO2 52 mmHg (85-104) L 02/18/17 05:50 ABG HCO3 18.3 mEQ/L (21-27) L 02/18/17 05:50 ABG Total CO2 19.5 mEq/L (20-26) L 02/18/17 05:50 ABG O2 Saturation 81 % (95-98) L 02/18/17 05:50 ABG Base Excess -7.8 mEq/L (-2.0 to 3.0) L 02/18/17 05:50 Sodium 125 mEq/L (136-145) L 02/18/17 04:20 Carbon Dioxide 15 mEq/L (19-29) L 02/18/17 04:20 BUN 48 mg/dL (7-20) H 02/18/17 04:20 Creatinine 3.32 mg/dL (0.57-1.11) H 02/18/17 04:20 Est GFR ( Amer) 17 (> 60) L 02/18/17 04:20 Est GFR (Non-Af Amer) 14 (> 60) L 02/18/17 04:20 Glucose 128 mg/dL (70-99) H 02/18/17 04:20 POC Glucose 107 (58-89) H 02/18/17 05:38 Calculated Osmolality 274 (280-300) L 02/18/17 04:20 Calcium 8.4 mg/dL (8.6-10.8) L 02/18/17 04:20 AST 118 Units/L (5-34) H 02/17/17 03:05 Alkaline Phosphatase 37 Units/L (38-126) L 02/17/17 03:05 Lactate Dehydrogenase 448 Units/L (159-327) H 02/16/17 09:27 Creatine Kinase 633 Units/L (29-168) H 02/18/17 04:20 Serum Total Protein 4.5 g/dL (6.0-8.3) L 02/17/17 03:05 Albumin 1.9 g/dL (3.5-5.0) L 02/17/17 03:05 Albumin/Globulin Ratio 0.7 (1.1-2.2) L 02/17/17 03:05 Lipase 184 Units/L (8-78) H 02/16/17 09:27 Urine Clarity Cloudy (Clear) A 02/16/17 15:50 Urine Protein 30 mg/dL (Neg-Trace) H 02/16/17 15:50 Urine Blood Large (Negative) H 02/16/17 15:50 Urine Microscopic RBC 50-100 per hpf (0-3) H 02/16/17 15:50 Urine Microscopic WBC 5-15 per hpf (0-3) H 02/16/17 15:50 Ur Squamous Epith Cells Many per lpf (None-Few) H 02/16/17 15:50 Waxy Casts Few per lpf (None Seen) H 02/16/17 15:50 Ur Culture Indicated? YES (NO) A 02/16/17 15:50 - Microbiology Findings Microbiology Findings: Microbiology, Last 48 Hours 02/16/17 15:50 Urine Culture - Final Urine,Clean Catch No growth. - Clinical Findings Intake & Output: Intake & Output 02/17/17 02/18/17 02/18/17 23:59 07:59 15:59 Intake Total 654 / 654 1872 / 1872 Output Total 625 / 625 50 / 50 Balance 1822 / 1822 Weight 56.7 kg Consult Discharge Plan - Plan Referrals: NO,PCP [Primary Care Provider] - - Attending Attestation I examined this patient and my medical decision-making was reviewed with the SKIN GRADER/PA/Advanced Practice Nurse/Resident Physician. I agree with the documented findings, disposition and treatment plan as described except to the extent set forth below. I spent 35min of Critical Care time with this patient. It involved decision making of high complexity to assess, manipulate, and support vital organ system failure and/or to prevent further life threatening deterioration of the patient' s condition. The time involved in the performance of separately reportable procedures was not counted toward critical care time. Patient seen and examined at bedside Labs, radiology, chart personally reviewed. All lines examined without evidence of infection. Neuropsych: Sedated on vent appears comfortable and narcotic infusion okay to an have intermittent boluses of benzodiazepine as needed for agitation Patient has MDR at baseline Pulm: Intubated yesterday for operation complicated by worsening hemodynamic instability with plan to return to operating theater early in the week will keep patient intubated on ventilator until then. Acceptable oxygenation today not currently candidate for spontaneous breathing trial. Continue low tidal volume ventilatory strategy Cards: Distributive shock likely secondary to sepsis requring vasopresor ( phenylephrine) support today goal MAP >60. Remains in sinus rhythm with episodes of ectopy. 500 mL crystalloid fluid challenge to be given today FEN-GI: POD#1 for "gasrtric sleeve" intraoperatively was noted that nearly the entire portion of the greater curvature of the stomach was necrotic from ischemia suspected internal volvulus. This was resected suture margins with some concern for necrotic tissue made need esophageal intestinal anastomosis but will need further evaluation with repeat operation early in the week appreciate given surgery recommendations NG tube placed intraoperatively. nothing by mouth for now Renal: Oliguric DEBORAH which is likely multifactorial including hypotension CPK is less than 1000 now continued to renal dose all medications and avoid nephrotoxins as possible high risk of progression to need for renal replacement therapy however no acute indication today. She does have a mild NAGMA which is secondary to renal failure. . 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 Continue post operative care. Continue NG. Continue mnitoring Is and Os. Reexploration planned for Monday. appreciate Surgery. (2) Recent major surgery Current Visit: Yes Status: Acute as stated above. (3) Sepsis Current Visit: Yes Status: Acute Blood cultures show no growth to date. Afebrile. Leukocytosis resolved. Lactic acidosis resolved. Source is likely from gastric necrosis. Continue Zosyn Qualifiers: Qualified Code(s): A41.9 - Sepsis, unspecified organism (4) DEBORAH (acute kidney injury) Current Visit: Yes Status: Acute Pre renal from shock/fluid losses/ surgery. Continue IV fluids. Strict Is and Os Avoid nephrotoxins (5) Hyponatremia Current Visit: Yes Status: Acute Likely from a combination of increased ADH secretion from stress/ Surgery and volume losses. Hypovolemic on exam. We will give her some some more LR and follow her BMP. (6) Mental retardation Current Visit: Yes Status: Acute (7) Metabolic acidosis Current Visit: Yes Status: Acute Non anion gap acidosis. From IV fluids and Gastric losses. Cotinue LR repeat BMP and VBG this afternoon. (8) Elevated CK Current Visit: Yes Status: Acute likely from necrotic stomach. resolving (9) Postoperative anemia Current Visit: Yes Status: Acute mild continue to follow. (10) DVT prophylaxis Current Visit: Yes Status: Acute Neuro/ Sedation: Fentanyl with versed. Appropriately sedated now. MRDD HEENT: No issues. Continue NG Cardio: Shock. Likley from a combination of sepsis and volume loss. Will give fluid bolus and attempt to wean vassopressor Pulm: Currently on mechanical ventilation. Meeting oxygenation and ventilation goals. Continue as she will be going back to surgery on monday and still criticlly ill at this time. GI: S/P Laparotomy with gastric sleeve procedure. Will need repeat exploration and possible further resection on Monday. Continue NG. Appreciate Dr. Barnes. Renal: DEBORAH in the setting of sepsis/ Shock/ post operative. Continue IV fluids and monitoring urine output. post operative urine ouput 525 cc's ( 14 hours) Avoid nephrotoxins and adjust medications as needed. Acid base/FEN: NAG MEtabolic acidosis Likely from a combination of IV fluids and losses from NG. Also likely had increase in ADH from stress/ surgery. currently appears hypovolemic so we will treat with IV fluids. Consider starting TPN. Will disuss with Surgery. Heme: Mild post operative anemia. Continue to monitor. ID: Correlation arm meets sepsis criteria. Sources like intra-abdominal from her necrotic stomach. She is afebrile and has normal white count. Urine and blood culture showed no growth to date. I will continue her on Zosyn. Prophylaxis: EPCDs. Heparin, Protonix, routine skin care. Lines: Right femoral, NG, ET, Vela Subjective Principal diagnosis: SBO Interval history: No major events overnight. Patient did have a laparotomy with gastric sleeve resection of the stomach. She was found to have 75% necrotic greater curvature of the stomach. She did experience some hypotension intraoperatively which resolved with Hammad-Synephrine. She is currently intubated and sedated. She wakes to voice but falls quickly back to sleep. Currently she is calm and not agitated. Objective PUL Vital signs: Last Vital Signs Temp 98.8 F 02/17/17 23:43 Pulse 83 02/18/17 06:00 Resp 18 02/18/17 06:00 BP 90/54 02/18/17 06:00 Pulse Ox 100 02/18/17 06:00 Gen.: This is a well-developed well-nourished 62-year-old female who is currently requiring mechanical ventilation and is on sedation. She does wake with the voice and does move her limbs. She is calm and not agitated at this time. HEENT: There is no cephalic atraumatic. There is a NG and ET tube in place. Trachea midline neck supple without masses thyromegaly. Heart: Regular rate and rhythm without murmurs rubs or gallops. Lungs: Clear to auscultation bilaterally. Normal rise and expansion of the chest wall bilaterally. Abdomen: Bowel sounds are absent. Abdomen is nondistended. There is a midline incision with staple line is clean dry and intact. Abdomen is soft palpation. Musculoskeletal: Grossly normal for age no gross deformity is noted. Extremities: There is no clubbing, cyanosis or edema. Integument: Is no rashes or lesions noted. Lines: She has an ET, OG, left femoral line with out signs of infection at this time. Ventilator Settings Ventilator Settings: Ventilator Settings, Last 8 Hours Ventilator Mode A/C Ventilator Mode A/C Ventilator Mode A/C Ventilator Mode A/C Ventilator Mode A/C Ventilator Mode A/C Ventilator Mode A/C Ventilator Mode A/C Ventilator Mode A/C Ventilator Mode A/C Ventilator Mode A/C Ventilator Mode A/C Ventilator Tidal Volume 400 Setting Ventilator Tidal Volume 400 Setting Ventilator Tidal Volume 400 Setting Ventilator Tidal Volume 400 Setting Ventilator Tidal Volume 400 Setting Ventilator Tidal Volume 400 Setting Ventilator Tidal Volume 400 Setting Ventilator Tidal Volume 400 Setting Ventilator Tidal Volume 400 Setting Ventilator Tidal Volume 400 Setting Ventilator Tidal Volume 400 Setting Ventilator Tidal Volume 400 Setting Ventilator Respiratory Rate 18 Setting Ventilator Respiratory Rate 18 Setting Ventilator Respiratory Rate 18 Setting Ventilator Respiratory Rate 18 Setting Ventilator Respiratory Rate 18 Setting Ventilator Respiratory Rate 18 Setting Ventilator Respiratory Rate 18 Setting Ventilator Respiratory Rate 18 Setting Ventilator Respiratory Rate 18 Setting Ventilator Respiratory Rate 18 Setting Ventilator Respiratory Rate 18 Setting Ventilator Respiratory Rate 18 Setting Actual Respiratory Rate 18 Actual Respiratory Rate 21 Actual Respiratory Rate 18 Actual Respiratory Rate 18 Positive End Expiratory 5 Pressure Positive End Expiratory 5 Pressure Positive End Expiratory 5 Pressure Positive End Expiratory 5 Pressure Positive End Expiratory 5 Pressure Positive End Expiratory 5 Pressure Positive End Expiratory 5 Pressure Positive End Expiratory 5 Pressure Positive End Expiratory 5 Pressure Positive End Expiratory 5 Pressure Positive End Expiratory 5 Pressure Positive End Expiratory 5 Pressure Peak Inspiratory Airway 20 Pressure Peak Inspiratory Airway 21 Pressure Peak Inspiratory Airway 21 Pressure Peak Inspiratory Airway 19 Pressure Results - Laboratory Findings CBC and BMP: 02/18/17 04:20 02/18/17 04:20 ABG ABG pH 7.28 pH Units (7.32-7.45) L 02/18/17 05:50 ABG pCO2 39 mmHg (35-45) 02/18/17 05:50 ABG pO2 52 mmHg (85-104) L 02/18/17 05:50 ABG O2 Saturation 81 % (95-98) L 02/18/17 05:50 PT/INR, D-dimer PT 11.2 Seconds (9.4-12.1) 02/15/17 17:34 Abnormal lab findings: Abnormal lab results RBC 3.66 M/mcL (3.82-4.97) L 02/18/17 04:20 Hgb 11.4 g/dL (11.5-15.4) L 02/18/17 04:20 Hct 33.7 % (35.3-44.9) L 02/18/17 04:20 Immature Plt Fraction 8.8 % (1.1-6.1) H 02/16/17 09:27 ABG pH 7.28 pH Units (7.32-7.45) L 02/18/17 05:50 ABG pO2 52 mmHg (85-104) L 02/18/17 05:50 ABG HCO3 18.3 mEQ/L (21-27) L 02/18/17 05:50 ABG Total CO2 19.5 mEq/L (20-26) L 02/18/17 05:50 ABG O2 Saturation 81 % (95-98) L 02/18/17 05:50 ABG Base Excess -7.8 mEq/L (-2.0 to 3.0) L 02/18/17 05:50 Sodium 125 mEq/L (136-145) L 02/18/17 04:20 Carbon Dioxide 15 mEq/L (19-29) L 02/18/17 04:20 BUN 48 mg/dL (7-20) H 02/18/17 04:20 Creatinine 3.32 mg/dL (0.57-1.11) H 02/18/17 04:20 Est GFR ( Amer) 17 (> 60) L 02/18/17 04:20 Est GFR (Non-Af Amer) 14 (> 60) L 02/18/17 04:20 Glucose 128 mg/dL (70-99) H 02/18/17 04:20 POC Glucose 107 (58-89) H 02/18/17 05:38 Calculated Osmolality 274 (280-300) L 02/18/17 04:20 Calcium 8.4 mg/dL (8.6-10.8) L 02/18/17 04:20 AST 118 Units/L (5-34) H 02/17/17 03:05 Alkaline Phosphatase 37 Units/L (38-126) L 02/17/17 03:05 Lactate Dehydrogenase 448 Units/L (159-327) H 02/16/17 09:27 Creatine Kinase 633 Units/L (29-168) H 02/18/17 04:20 Serum Total Protein 4.5 g/dL (6.0-8.3) L 02/17/17 03:05 Albumin 1.9 g/dL (3.5-5.0) L 02/17/17 03:05 Albumin/Globulin Ratio 0.7 (1.1-2.2) L 02/17/17 03:05 Lipase 184 Units/L (8-78) H 02/16/17 09:27 Urine Clarity Cloudy (Clear) A 02/16/17 15:50 Urine Protein 30 mg/dL (Neg-Trace) H 02/16/17 15:50 Urine Blood Large (Negative) H 02/16/17 15:50 Urine Microscopic RBC 50-100 per hpf (0-3) H 02/16/17 15:50 Urine Microscopic WBC 5-15 per hpf (0-3) H 02/16/17 15:50 Ur Squamous Epith Cells Many per lpf (None-Few) H 02/16/17 15:50 Waxy Casts Few per lpf (None Seen) H 02/16/17 15:50 Ur Culture Indicated? YES (NO) A 02/16/17 15:50 - Microbiology Findings Microbiology Findings: Microbiology, Last 48 Hours 02/16/17 15:50 Urine Culture - Final Urine,Clean Catch No growth. - Clinical Findings Intake & Output: Intake & Output 02/17/17 02/17/17 02/18/17 15:59 23:59 07:59 Intake Total 556 / 556 654 / 654 1871 Output Total 650 / 650 625 / 625 Balance -94 / -94 1871 Weight 56.7 kg - VTE Documentation of Mechanical Device: Intermittent pneumatic compression device
[2017-02-18] MEDS ORDERED: Ringers Solution, Lactated 500 ML IVC ONE (08:40)
[2017-02-18] MEDS: Chlorhexidine Rinse 15 ML MOUTHWASH MM SCH ×2 (09:22→19:47)
[2017-02-18] MEDS: Pantoprazole 40 MG VIAL IVPB SCH (09:22)
[2017-02-18 10:49] LABS: INR 1.2; Prothrombin Time 13.1 Seconds (9.4-12.1)
[2017-02-18 10:52] LABS: Activated Partial Thrombo Time 27.7 Seconds (26.0-36.0)
--- NOTE | 2017-02-18 12:40 | General Surgery Progress Note ---
Date of Encounter: 02/18/17 Time of Encounter: 08:45 - Assessment and Plan (1) Small bowel obstruction Current Visit: Yes Status: Acute POD #1 for exploratory laparotomy with sleeve resection of the stomach due to gastric necrosis; with Dr. Barnes. Complications during surgery include two episodes of hypotension that responded to Hammad-Synephrine drip. 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 Subtotal gastrectomy with staple to the end of the esophagus for modified sleeve resection to ensure gastrointestinal continuity. Staple line demonstrated some visible black necrotic mucosa however seromuscular layer appeared viable. Plan for 48 hour re-exploration. Abdomen/Pelvis CT 02/15/17 IMPRESSION: 1. Massive distention of the stomach which is fluid-filled. There is pronounced dilation of the first and second portions of the duodenum measuring up to 5 cm. The remainder of the small bowel is collapsed distally. Findings compatible with high grade obstructive process at the level of the second and third portions of the duodenum. Fluid is also seen extending of the partially visualized esophagus and findings predispose the patient for aspiration. High-grade small bowel obstruction demonstrated on CT. Volvulus remains the primary suspected cause for diffuse gastric necrosis. Plan: NPO: Maintain bowel rest Supportive care and pain control per ICU team -Continue IV antibiotics -Continue IV fluids -Continue respiratory support with mechanical ventilation Per ICU team Maintain Vela catheter for strict I and O's Daily dressing change- complete today PPI therapy daily DVT prophylaxis NG tube to low intermittent wall suction. No circumstances remove NG tubing. Keep NG tube in place. If NG tube becomes dislodged call surgical team immediately. Do not attempt to reinsert NG tube. Re-exploration in 48-72 hours if patient stable; by Dr. Barnes. Nutritional support with TPN will be considered after re-exploration. (2) Gastric necrosis Current Visit: Yes Status: Acute As above. (3) Septic shock Current Visit: Yes Status: Acute Improving. Management per ICU team. (4) DVT prophylaxis Current Visit: Yes Status: Acute The assessment and plan as outlined above was discussed with the patient and/or family members who expressed understanding and agreement. All questions were answered. Continue EPCDs to bilateral lower extremities for DVT prophylaxis Subjective Narrative: No acute events overnight. Patient is intubated and sedated. Soft restraints. Patient is awakened to verbal stimuli however she does not follow commands and quickly falls back to sleep she appears uncomfortable. Patient is postoperative day 1 exploratory laparotomy with modified gastric sleeve resection of stomach due to gastric necrosis. NG tube is in place with output continued at low inermittent wall suction placement in left nare. Objective Vital Signs - Last 8 Hours Temp Pulse Resp BP Pulse Ox 02/18/17 12:00 78 20 103/65 100 02/18/17 11:54 20 99/68 100 02/18/17 11:41 99.9 F H 02/18/17 11:00 77 20 78/61 100 02/18/17 10:28 20 77/49 98 02/18/17 10:00 85 20 78/57 100 02/18/17 09:59 85 20 78/57 100 02/18/17 09:00 85 20 71/51 100 02/18/17 08:00 85 20 83/56 100 02/18/17 07:44 20 92/58 100 02/18/17 07:36 98 F 84 22 84/55 100 02/18/17 06:00 83 18 90/54 100 02/18/17 05:12 18 100 02/18/17 05:00 81 18 78/53 100 Intake and Output 02/17/17 02/18/17 02/18/17 23:59 07:59 15:59 Intake Total 654 / 654 1872 / 1872 700 / 700 Output Total 625 / 625 50 / 50 100 / 100 Balance 29 / 29 1822 / 1822 600 / 600 Intake: IV Fluids 654 / 654 1872 / 1872 700 / 700 0.9 % Sodium Chloride 500 500 / 500 ML @ 1875 mls/hr IVC . Q16M ONE Rx#:[id number] FentaNYL (PF) 1,000 MCG 100 / 100 100 / 100 In 0.9 % Sodium Chloride 80 ML @ 50 MCG/HR 5 mls/ hr IVC CONT CHARLA Rx#: [id number] FentaNYL (PF) 3,000 MCG 14 / 14 In 0.9 % Sodium Chloride 240 ML @ 50 MCG/HR 5 mls/ hr IVC CONT CHARLA Rx#: [id number] Phenylephrine 20 MG In 150 / 150 1058 / 1058 100 / 100 Dextrose 5% 500 ML @ 40 MCG/MIN 60.24 mls/hr IVC CONT CHARLA Rx#:[id number] Lactated Ringers 500 ML @ 500 / 500 1000 mls/hr IVC .Q30M ONE Rx#:[id number] Magnesium Sulfate 2 GM In 104 / 104 Dextrose 5% 100 ML @ 50 mls/hr IVPB Q6H PRN Rx#: [id number] Zosyn 3.375 GM In 100 / 100 100 / 100 Dextrose 5% (Minibag+) 100 ML 100 ML @ 25 mls/hr IVPB Q12H CHARLA Rx#: [id number] Potassium Chloride 10 mEq 200 / 200 200 / 200 /100mL 10 meq In 100 ml @ 100 mls/hr IVPB Q1H PRN Rx#:[id number] Oral 0 / 0 Output: Urine 225 / 225 Estimated Blood Loss 75 / 75 Urine Amount (Catheter) 200 / 200 Catheter 75 / 75 50 / 50 100 / 100 Gastric Drainage 50 / 50 Other: Weight 56.7 kg Blood Glucose* 177 107 - General physical appearance well developed, well nourished, other (Moves all 4 extremities, developmental delay, does not follow commands, appears uncomfortable) - Eyes PERRL, normal ocular movement - ENT normal nares (NG left nare with dark brown drainage), normocephalic - Neck Neck exam: trachea midline, no venous distension - Respiratory clear to auscultation, other (Intubated and ventilated) - Cardiovascular Cardiovascular exam: Present: RRR, no murmurs/rubs/gallops. Absent: JVD - Abdomen Abdomen: Present: soft, non tender. Absent: bowel sounds present, distended, masses - Incision Incision: Present: clean and dry, intact - Genitourinary other (Vela in place) - Integumentary no rash - Neurologic other (developmental delay) - Musculoskeletal other (ROM moves all 4 extremities) - Labs 02/18/17 04:20 02/18/17 14:20 Diabetes panel 02/17/17 02/18/17 Range/Units 17:36 04:20 Sodium 130 L 125 L (136-145) mEq/L Potassium 3.6 4.1 (3.5-4.5) mEq/L Chloride 103 100 (98-109) mEq/L Carbon Dioxide 17 L 15 L (19-29) mEq/L BUN 48 H 48 H (7-20) mg/dL Creatinine 3.14 H 3.32 H (0.57-1.11) mg/dL Glucose 247 H 128 H (70-99) mg/dL Calcium 8.2 L 8.4 L (8.6-10.8) mg/dL Calcium panel 02/17/17 02/18/17 Range/Units 17:36 04:20 Calcium 8.2 L 8.4 L (8.6-10.8) mg/dL Phosphorus 3.3 D (2.3-4.7) mg/dL Pituitary panel 02/17/17 02/18/17 Range/Units 17:36 04:20 Sodium 130 L 125 L (136-145) mEq/L Potassium 3.6 4.1 (3.5-4.5) mEq/L Chloride 103 100 (98-109) mEq/L Carbon Dioxide 17 L 15 L (19-29) mEq/L BUN 48 H 48 H (7-20) mg/dL Creatinine 3.14 H 3.32 H (0.57-1.11) mg/dL Glucose 247 H 128 H (70-99) mg/dL Calcium 8.2 L 8.4 L (8.6-10.8) mg/dL Adrenal panel 02/17/17 02/18/17 Range/Units 17:36 04:20 Sodium 130 L 125 L (136-145) mEq/L Potassium 3.6 4.1 (3.5-4.5) mEq/L Chloride 103 100 (98-109) mEq/L Carbon Dioxide 17 L 15 L (19-29) mEq/L BUN 48 H 48 H (7-20) mg/dL Creatinine 3.14 H 3.32 H (0.57-1.11) mg/dL Glucose 247 H 128 H (70-99) mg/dL Calcium 8.2 L 8.4 L (8.6-10.8) mg/dL - VTE Documentation of Mechanical Device: Intermittent pneumatic compression device Consult Discharge Plan - Plan Referrals: NO,PCP [Primary Care Provider] - - Attending Attestation I examined this patient and my medical decision-making was reviewed with the RESPIRATORY CARE TECHNICIAN/PA/Advanced Practice Nurse/Resident Physician. I agree with the documented findings, disposition and treatment plan as described except to the extent set forth below. Review the assessment and examination with the event marketing intern. Reviewed operative report. Patient is currently postoperative day 1 from gastric sleeve resection due to necrosis of the stomach. Continue with current management. NG tube to low intermittent wall suction. For reevaluation and reexploration on [address] Barnes.
[2017-02-18 14:37] LABS: VBG HCO3 17.9 mEq/L (21-27); VBG PH 7.28 pH Units (7.32-7.42)
[2017-02-18 14:50] LABS: Calcium 8.4 mg/dL (8.6-10.8); Magnesium 2.1 mg/dL (1.6-2.6); Potassium 3.9 mEq/L (3.5-4.5)
[2017-02-18] MEDS ORDERED: Potassium Chloride 40 MEQ/200 ML BAG IVPB PRN (15:13)
[2017-02-19] MEDS: Lacri-Lube 3.5 GM TUBE BOTH EYES SCH ×6 (01:35→21:40)
[2017-02-19] MEDS: Insulin LISPRO 300 UNITS/3 ML VIAL SQ SCH ×3 (01:35→11:22)
[2017-02-19] MEDS: Piperacillin/Tazobactam 3.375 GM in D5% in Water (Mini-Bag+) 100 ML IVPB SCH ×2 (04:32→16:09)
[2017-02-19] MEDS: *HR* Heparin 5,000 UNIT/ML VIAL SQ SCH (04:33)
[2017-02-19 04:37] LABS: Basophils % 0.1 %; Eosinophils # 0.1 K/mcL (0.0-0.6); Eosinophils % 0.7 %; Hemoglobin 8.8 g/dL (11.5-15.4); Immature Granulocytes % 0.7 % (0-4); Lymphocytes # 1.1 K/mcL (0.6-4.6); Lymphocytes % 9.9 %; Mean Corpuscular HGB Conc 35.2 g/dL (31.6-35.5); Mean Corpuscular Hemoglobin 31.9 pg (28.0-33.3); Mean Corpuscular Volume 90.6 fL (83.0-100.0); Mean Platelet Volume 11.5 fL (9.4-12.4); Monocytes # 0.6 K/mcL (0.0-1.3); Monocytes % 5.5 %; Neutrophils # 8.9 K/mcL (1.6-8.9); Platelet Count 195 K/mcL (140-400); Red Blood Count 2.76 M/mcL (3.82-4.97); Red Cell Distribution Width 13.2 % (11.5-14.5); Segmented Neutrophils % 83.1 %
[2017-02-19 04:50] LABS: Calcium 8.4 mg/dL (8.6-10.8); Magnesium 2.1 mg/dL (1.6-2.6); Phosphorous 2.2 mg/dL (2.3-4.7); Potassium 4.3 mEq/L (3.5-4.5)
[2017-02-19] MEDS: Phenylephrine 20 MG in D5% in Water 500 ML IVC SCH ×2 (05:25→12:05)
[2017-02-19 06:01] LABS: Ionized Calcium 1.29 mmol/L (1.15-1.35)
--- NOTE | 2017-02-19 07:39 | Pulmonology Progress Note ---
<BarbaraCharles W - Last Filed: 02/19/17 09:55> Date of Encounter: 02/19/17 Objective PUL Vital signs: Last Vital Signs Temp 98.1 F 02/19/17 08:00 Pulse 68 02/19/17 09:16 Resp 17 02/19/17 09:41 BP 99/69 02/19/17 09:41 Pulse Ox 100 02/19/17 09:41 Ventilator Settings Ventilator Settings: Ventilator Settings, Last 8 Hours Ventilator Mode A/C Ventilator Mode A/C Ventilator Mode A/C Ventilator Mode A/C Ventilator Mode A/C Ventilator Mode A/C Ventilator Mode A/C Ventilator Mode A/C Ventilator Mode A/C Ventilator Mode A/C Ventilator Tidal Volume 400 Setting Ventilator Tidal Volume 400 Setting Ventilator Tidal Volume 400 Setting Ventilator Tidal Volume 400 Setting Ventilator Tidal Volume 400 Setting Ventilator Tidal Volume 400 Setting Ventilator Tidal Volume 400 Setting Ventilator Tidal Volume 400 Setting Ventilator Tidal Volume 400 Setting Ventilator Tidal Volume 400 Setting Ventilator Respiratory Rate 16 Setting Ventilator Respiratory Rate 20 Setting Ventilator Respiratory Rate 20 Setting Ventilator Respiratory Rate 20 Setting Ventilator Respiratory Rate 20 Setting Ventilator Respiratory Rate 20 Setting Ventilator Respiratory Rate 20 Setting Ventilator Respiratory Rate 20 Setting Ventilator Respiratory Rate 20 Setting Ventilator Respiratory Rate 20 Setting Actual Respiratory Rate 16 Actual Respiratory Rate 20 Actual Respiratory Rate 20 Actual Respiratory Rate 20 Actual Respiratory Rate 20 Actual Respiratory Rate 20 Positive End Expiratory 5 Pressure Positive End Expiratory 8 Pressure Positive End Expiratory 8 Pressure Positive End Expiratory 8 Pressure Positive End Expiratory 8 Pressure Positive End Expiratory 8 Pressure Positive End Expiratory 8 Pressure Positive End Expiratory 8 Pressure Positive End Expiratory 8 Pressure Positive End Expiratory 8 Pressure Peak Inspiratory Airway 20 Pressure Peak Inspiratory Airway 21 Pressure Peak Inspiratory Airway 24 Pressure Peak Inspiratory Airway 23 Pressure Peak Inspiratory Airway 23 Pressure Peak Inspiratory Airway 23 Pressure Results - Laboratory Findings CBC and BMP: 02/19/17 04:30 02/19/17 04:30 ABG ABG pH 7.43 pH Units (7.32-7.45) 02/19/17 09:10 ABG pCO2 24 mmHg (35-45) L 02/19/17 09:10 ABG pO2 213 mmHg (85-104) H 02/19/17 09:10 ABG O2 Saturation 100 % (95-98) H 02/19/17 09:10 PT/INR, D-dimer PT 13.1 Seconds (9.4-12.1) H 02/18/17 10:30 Abnormal lab findings: Abnormal lab results RBC 2.76 M/mcL (3.82-4.97) L 02/19/17 04:30 Hgb 8.8 g/dL (11.5-15.4) L D 02/19/17 04:30 Hct 25.0 % (35.3-44.9) L 02/19/17 04:30 Immature Plt Fraction 8.8 % (1.1-6.1) H 02/16/17 09:27 PT 13.1 Seconds (9.4-12.1) H 02/18/17 10:30 ABG pCO2 24 mmHg (35-45) L 02/19/17 09:10 ABG pO2 213 mmHg (85-104) H 02/19/17 09:10 ABG HCO3 15.9 mEQ/L (21-27) L 02/19/17 09:10 ABG Total CO2 16.6 mEq/L (20-26) L 02/19/17 09:10 ABG O2 Saturation 100 % (95-98) H 02/19/17 09:10 ABG Base Excess -7.2 mEq/L (-2.0 to 3.0) L 02/19/17 09:10 VBG pH 7.28 pH Units (7.32-7.42) L 02/18/17 14:20 VBG pCO2 38 mmHg (41-51) L 02/18/17 14:20 VBG pO2 70 mmHg (25-40) H 02/18/17 14:20 VBG HCO3 17.9 mEq/L (21-27) L 02/18/17 14:20 Sodium 122 mEq/L (136-145) L 02/19/17 04:30 Carbon Dioxide 17 mEq/L (19-29) L 02/19/17 04:30 BUN 45 mg/dL (7-20) H 02/19/17 04:30 Creatinine 3.71 mg/dL (0.57-1.11) H 02/19/17 04:30 Est GFR ( Amer) 15 (> 60) L 02/19/17 04:30 Est GFR (Non-Af Amer) 12 (> 60) L 02/19/17 04:30 Glucose 118 mg/dL (70-99) H 02/19/17 04:30 POC Glucose 118 (58-89) H 02/19/17 08:04 Calculated Osmolality 267 (280-300) L 02/19/17 04:30 Calcium 8.4 mg/dL (8.6-10.8) L 02/19/17 04:30 Phosphorus 2.2 mg/dL (2.3-4.7) L 02/19/17 04:30 AST 118 Units/L (5-34) H 02/17/17 03:05 Alkaline Phosphatase 37 Units/L (38-126) L 02/17/17 03:05 Lactate Dehydrogenase 448 Units/L (159-327) H 02/16/17 09:27 Creatine Kinase 633 Units/L (29-168) H 02/18/17 04:20 Serum Total Protein 4.5 g/dL (6.0-8.3) L 02/17/17 03:05 Albumin 1.9 g/dL (3.5-5.0) L 02/17/17 03:05 Albumin/Globulin Ratio 0.7 (1.1-2.2) L 02/17/17 03:05 Lipase 184 Units/L (8-78) H 02/16/17 09:27 Urine Clarity Cloudy (Clear) A 02/16/17 15:50 Urine Protein 30 mg/dL (Neg-Trace) H 02/16/17 15:50 Urine Blood Large (Negative) H 02/16/17 15:50 Urine Microscopic RBC 50-100 per hpf (0-3) H 02/16/17 15:50 Urine Microscopic WBC 5-15 per hpf (0-3) H 02/16/17 15:50 Ur Squamous Epith Cells Many per lpf (None-Few) H 02/16/17 15:50 Waxy Casts Few per lpf (None Seen) H 02/16/17 15:50 Ur Culture Indicated? YES (NO) A 02/16/17 15:50 - Microbiology Findings Microbiology Findings: Microbiology, Last 48 Hours 02/16/17 15:50 Urine Culture - Final Urine,Clean Catch No growth. - Clinical Findings Intake & Output: Intake & Output 02/18/17 02/19/17 02/19/17 23:59 07:59 15:59 Intake Total 1588 / 1588 702 / 702 Output Total 300 / 300 600 / 600 200 / 200 Balance 1288 / 1288 102 / 102 -200 / -200 Consult Discharge Plan - Plan Referrals: NO,PCP [Primary Care Provider] - - Attending Attestation I examined this patient and my medical decision-making was reviewed with the RAT POISONER/PA/Advanced Practice Nurse/Resident Physician. I agree with the documented findings, disposition and treatment plan as described except to the extent set forth below. Patient seen and examined at bedside Labs, radiology, chart personally reviewed. All lines examined without evidence of infection. Neuropsych: Sedated on vent appears comfortable and narcotic infusion and intermittent boluses of benzodiazepine as needed for agitation Patient has MDR at baseline. Continue daily sedation holiday Pulm: Intubated yesterday for operation complicated by worsening hemodynamic instability with plan to return to operating theater early in the week will keep patient intubated on ventilator until then. Acceptable oxygenation for ABG over ventilating patient at present respiratory rate decreased continue low tidal volume strategy. Daily spontaneous breathing trial. Continue ventilator bundle to prevent VAP. Cards: Distributive shock likely secondary to sepsis requring vasopresor ( phenylephrine) support today goal MAP >60. Remains in sinus rhythm with episodes of ectopy. FEN-GI: POD#2 for "gasrtric sleeve" intraoperatively was noted that nearly the entire portion of the greater curvature of the stomach was necrotic from ischemia suspected volvulus. Nothing by mouth for now PPI prophylaxis given. Appreciate general surgery evaluation/recommendations Renal: Oliguric DEBORAH which is likely multifactorial including hypotension with improving UOP. Noted Hyponatremia (increased ADH release with renal failure) and resolving Rhabdo. Continued to dose all medications for GFR and avoid nephrotoxins as possible. No acute indication for TYPE INSPECTOR today. 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 02/17/2017 Continue post operative care. Continue NG. If somehow removed will need to call surgery. Do not replace if inadvertently pulled. Continue monitoring Is and Os. Reexploration planned for Monday. appreciate Surgery. (2) Recent major surgery Current Visit: Yes Status: Acute as stated above. (3) Sepsis Current Visit: Yes Status: Acute Blood cultures show no growth to date. Afebrile. Leukocytosis resolved. Lactic acidosis resolved. Source is likely from gastric necrosis. Continue Zosyn Qualifiers: Qualified Code(s): A41.9 - Sepsis, unspecified organism (4) DEBORAH (acute kidney injury) Current Visit: Yes Status: Acute Pre renal from shock/fluid losses/ surgery. She has worsening renal function. However her urine output is picking up. Thank you out improved function tomorrow. We will give her gentle hydration. Will need to monitor her fluids very closely with her downtrending sodium. Strict Is and Os Avoid nephrotoxins (5) Hyponatremia Current Visit: Yes Status: Acute Likely from a combination of increased ADH secretion from stress/ Surgery and volume losses. Sodium is down trending from 125-122. Change IV fluids to albumin. Continue to monitor closely. (6) Mental retardation Current Visit: Yes Status: Acute (7) Metabolic acidosis Current Visit: Yes Status: Acute Non anion gap acidosis. From IV fluids and Gastric losses. (8) Elevated CK Current Visit: Yes Status: Acute likely from necrotic stomach. resolving (9) Postoperative anemia Current Visit: Yes Status: Acute Downtrending. No signs of active bleeding at this time. Also likely has a component of dilution. continue to follow. (10) DVT prophylaxis Current Visit: Yes Status: Acute Neuro/ Sedation: Fentanyl with versed pushes. Appropriately sedated now. MRDD HEENT: No issues. Continue NG Cardio: Shock. Likely from a combination of sepsis and volume loss. We will attempt to wean vasopressor if possible. Pulm: Currently on mechanical ventilation. ABG pending at this time we will follow-up with those results and adjust vent settings appropriate. Continue as she will be going back to surgery on monday and still is critically ill at this time. GI: S/P Laparotomy with gastric sleeve procedure. 02/17/2017. Will need repeat exploration and possible further resection on Monday. Continue NG. Appreciate Dr. Barnes. Renal: DEBORAH in the setting of sepsis/ Shock/ post operative. Continue gentle hydration with IV albumin and monitoring urine output. Urine output increasing. She is at 700 mL since midnight. Avoid nephrotoxins and adjust medications as needed. Acid base/FEN: NAG MEtabolic acidosis Likely from a combination of IV fluids and losses from NG. Also likely had increase in ADH from stress/ surgery. Consider starting TPN after surgery on Monday. Heme: Downtrending. Postoperative. Dilutional. Continue to monitor. ID: Currently she does not meet sepsis criteria. Sources like intra-abdominal from her necrotic stomach. She is afebrile and has normal white count. Urine and blood culture showed no growth to date. I will continue her on Zosyn. Prophylaxis: EPCDs. Heparin, Protonix, routine skin care. Lines: Right femoral, NG, ET, Vela Subjective Principal diagnosis: SBO Interval history: No major events overnight. Patient is POD #2 for laparotomy with gastric sleeve resection of the stomach. No major events overnight. She is currently intubated and sedated with fentanyl and versed pushes . She wakes to voice but falls quickly back to sleep. She is moving all of her limbs. Currently she is calm and not agitated. Objective PUL Vital signs: Last Vital Signs Temp 98.2 F 02/19/17 00:00 Pulse 70 02/19/17 05:00 Resp 20 02/19/17 05:18 BP 89/63 02/19/17 05:18 Pulse Ox 100 02/19/17 05:18 Gen.: This is a well-developed well-nourished 62-year-old female who is currently intubated and sedated. She does wake during the exam moves all her limbs but falls quickly back to sleep. HEENT: Head is normal cephalic atraumatic. Pupils are equal round reactive to light. ET and NG tube in place. Trachea midline. Heart: Regular rate and rhythm without murmurs rubs or gallops. Lungs: Clear to auscultation bilaterally. Normal rise in excess of the chest wall bilaterally with dilation. Abdomen: Abdomen is nondistended, incision is well dressed and clean with minimal shadowing. Abdomen is soft. Bowel sounds are absent. Musculoskeletal: Grossly normal for age no gross deformity noted. Extremities: There is no clubbing, cyanosis or edema. Integument: No rashes or lesions noted. Lines: She has a right femoral central line no signs of infection at this time. Ventilator Settings Ventilator Settings: Ventilator Settings, Last 8 Hours Ventilator Mode A/C Ventilator Mode A/C Ventilator Mode A/C Ventilator Mode A/C Ventilator Mode A/C Ventilator Mode A/C Ventilator Mode A/C Ventilator Mode A/C Ventilator Mode A/C Ventilator Mode A/C Ventilator Tidal Volume 400 Setting Ventilator Tidal Volume 400 Setting Ventilator Tidal Volume 400 Setting Ventilator Tidal Volume 400 Setting Ventilator Tidal Volume 400 Setting Ventilator Tidal Volume 400 Setting Ventilator Tidal Volume 400 Setting Ventilator Tidal Volume 400 Setting Ventilator Tidal Volume 400 Setting Ventilator Tidal Volume 400 Setting Ventilator Respiratory Rate 20 Setting Ventilator Respiratory Rate 20 Setting Ventilator Respiratory Rate 20 Setting Ventilator Respiratory Rate 20 Setting Ventilator Respiratory Rate 20 Setting Ventilator Respiratory Rate 20 Setting Ventilator Respiratory Rate 20 Setting Ventilator Respiratory Rate 20 Setting Ventilator Respiratory Rate 20 Setting Ventilator Respiratory Rate 20 Setting Actual Respiratory Rate 20 Actual Respiratory Rate 20 Actual Respiratory Rate 20 Actual Respiratory Rate 20 Actual Respiratory Rate 20 Positive End Expiratory 8 Pressure Positive End Expiratory 8 Pressure Positive End Expiratory 8 Pressure Positive End Expiratory 8 Pressure Positive End Expiratory 8 Pressure Positive End Expiratory 8 Pressure Positive End Expiratory 8 Pressure Positive End Expiratory 8 Pressure Positive End Expiratory 8 Pressure Positive End Expiratory 8 Pressure Peak Inspiratory Airway 23 Pressure Peak Inspiratory Airway 23 Pressure Peak Inspiratory Airway 22 Pressure Peak Inspiratory Airway 21 Pressure Peak Inspiratory Airway 21 Pressure Results - Laboratory Findings CBC and BMP: 02/19/17 04:30 02/19/17 04:30 ABG ABG pH 7.28 pH Units (7.32-7.45) L 02/18/17 05:50 ABG pCO2 39 mmHg (35-45) 02/18/17 05:50 ABG pO2 52 mmHg (85-104) L 02/18/17 05:50 ABG O2 Saturation 81 % (95-98) L 02/18/17 05:50 PT/INR, D-dimer PT 13.1 Seconds (9.4-12.1) H 02/18/17 10:30 Abnormal lab findings: Abnormal lab results RBC 2.76 M/mcL (3.82-4.97) L 02/19/17 04:30 Hgb 8.8 g/dL (11.5-15.4) L D 02/19/17 04:30 Hct 25.0 % (35.3-44.9) L 02/19/17 04:30 Immature Plt Fraction 8.8 % (1.1-6.1) H 02/16/17 09:27 PT 13.1 Seconds (9.4-12.1) H 02/18/17 10:30 ABG pH 7.28 pH Units (7.32-7.45) L 02/18/17 05:50 ABG pO2 52 mmHg (85-104) L 02/18/17 05:50 ABG HCO3 18.3 mEQ/L (21-27) L 02/18/17 05:50 ABG Total CO2 19.5 mEq/L (20-26) L 02/18/17 05:50 ABG O2 Saturation 81 % (95-98) L 02/18/17 05:50 ABG Base Excess -7.8 mEq/L (-2.0 to 3.0) L 02/18/17 05:50 VBG pH 7.28 pH Units (7.32-7.42) L 02/18/17 14:20 VBG pCO2 38 mmHg (41-51) L 02/18/17 14:20 VBG pO2 70 mmHg (25-40) H 02/18/17 14:20 VBG HCO3 17.9 mEq/L (21-27) L 02/18/17 14:20 Sodium 122 mEq/L (136-145) L 02/19/17 04:30 Carbon Dioxide 17 mEq/L (19-29) L 02/19/17 04:30 BUN 45 mg/dL (7-20) H 02/19/17 04:30 Creatinine 3.71 mg/dL (0.57-1.11) H 02/19/17 04:30 Est GFR ( Amer) 15 (> 60) L 02/19/17 04:30 Est GFR (Non-Af Amer) 12 (> 60) L 02/19/17 04:30 Glucose 118 mg/dL (70-99) H 02/19/17 04:30 POC Glucose 107 (58-89) H 02/19/17 04:17 Calculated Osmolality 267 (280-300) L 02/19/17 04:30 Calcium 8.4 mg/dL (8.6-10.8) L 02/19/17 04:30 Phosphorus 2.2 mg/dL (2.3-4.7) L 02/19/17 04:30 AST 118 Units/L (5-34) H 02/17/17 03:05 Alkaline Phosphatase 37 Units/L (38-126) L 02/17/17 03:05 Lactate Dehydrogenase 448 Units/L (159-327) H 02/16/17 09:27 Creatine Kinase 633 Units/L (29-168) H 02/18/17 04:20 Serum Total Protein 4.5 g/dL (6.0-8.3) L 02/17/17 03:05 Albumin 1.9 g/dL (3.5-5.0) L 02/17/17 03:05 Albumin/Globulin Ratio 0.7 (1.1-2.2) L 02/17/17 03:05 Lipase 184 Units/L (8-78) H 02/16/17 09:27 Urine Clarity Cloudy (Clear) A 02/16/17 15:50 Urine Protein 30 mg/dL (Neg-Trace) H 02/16/17 15:50 Urine Blood Large (Negative) H 02/16/17 15:50 Urine Microscopic RBC 50-100 per hpf (0-3) H 02/16/17 15:50 Urine Microscopic WBC 5-15 per hpf (0-3) H 02/16/17 15:50 Ur Squamous Epith Cells Many per lpf (None-Few) H 02/16/17 15:50 Waxy Casts Few per lpf (None Seen) H 02/16/17 15:50 Ur Culture Indicated? YES (NO) A 02/16/17 15:50 - Microbiology Findings Microbiology Findings: Microbiology, Last 48 Hours 02/16/17 15:50 Urine Culture - Final Urine,Clean Catch No growth. - Clinical Findings Intake & Output: Intake & Output 02/18/17 02/18/17 02/19/17 15:59 23:59 07:59 Intake Total 700 / 700 1588 / 1588 702 / 702 Output Total 350 / 350 300 / 300 600 / 600 Balance 350 / 350 1288 / 1288 102 / 102 - VTE Documentation of Mechanical Device: Intermittent pneumatic compression device
[2017-02-19] MEDS: Chlorhexidine Rinse 15 ML MOUTHWASH MM SCH ×2 (08:21→21:38)
[2017-02-19] MEDS: Pantoprazole 40 MG VIAL IVPB SCH (08:21)
--- NOTE | 2017-02-19 08:38 | General Surgery Progress Note ---
Date of Encounter: 02/20/17 Time of Encounter: 07:15 - Assessment and Plan (1) Small bowel obstruction Current Visit: Yes Status: Acute POD #2 for exploratory laparotomy with sleeve resection of the stomach due to gastric necrosis; with Dr. Barnes. Complications during surgery include two episodes of hypotension that responded to Hammad-Synephrine drip. 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 Subtotal gastrectomy with staple to the end of the esophagus for modified sleeve resection to ensure gastrointestinal continuity. Staple line demonstrated some visible black necrotic mucosa however seromuscular layer appeared viable. Plan for 48 hour re-exploration. Abdomen/Pelvis CT 02/15/17 IMPRESSION: 1. Massive distention of the stomach which is fluid-filled. There is pronounced dilation of the first and second portions of the duodenum measuring up to 5 cm. The remainder of the small bowel is collapsed distally. Findings compatible with high grade obstructive process at the level of the second and third portions of the duodenum. Fluid is also seen extending of the partially visualized esophagus and findings predispose the patient for aspiration. High-grade small bowel obstruction demonstrated on CT. Volvulus remains the primary suspected cause for diffuse gastric necrosis. No acute events overnight. Patient remained on Hammad-Synephrine drip. Laboratory results reveal a steady decline in sodium 122<125<130<132<136. I/O's with negative balance today of 98, cumulative balance positive 2829. Gastric drainage 100ml. Plan: NPO: Maintain bowel rest Supportive care and pain control management per ICU team -Continue IV antibiotics -Avoid over hydration with IVF given hyponatremia. -Continue respiratory support with mechanical ventilation Per ICU team Maintain Vela catheter for strict I and O's Daily dressing change- complete today PPI therapy daily DVT prophylaxis NG tube to low intermittent wall suction. No circumstances remove NG tubing. Keep NG tube in place. If NG tube becomes dislodged call surgical team immediately. Do not attempt to reinsert NG tube. Re-exploration in 48-72 hours from surgery ( 02/20/17) if patient stable; by Dr. Barnes. Nutritional support with TPN will be considered after re-exploration. (2) Gastric necrosis Current Visit: Yes Status: Acute As above. (3) Septic shock Current Visit: Yes Status: Acute Improving. Management per ICU team. (4) DVT prophylaxis Current Visit: Yes Status: Acute The assessment and plan as outlined above was discussed with the patient and/or family members who expressed understanding and agreement. All questions were answered. Continue EPCDs to bilateral lower extremities for DVT prophylaxis Subjective Narrative: No acute events overnight. Patient is intubated and sedated. Soft restraints. Patient is awakened to verbal stimuli however she does not follow commands and quickly falls back to sleep she appears uncomfortable. Patient is postoperative day 2 exploratory laparotomy with modified gastric sleeve resection of stomach due to gastric necrosis. NG tube is in place with output continued at low inermittent wall suction placement in left nare. Objective Vital Signs - Last 8 Hours Temp Pulse Resp BP Pulse Ox 02/19/17 08:00 98.1 F 67 21 93/56 100 02/19/17 07:54 20 81/57 100 02/19/17 05:18 20 89/63 100 02/19/17 05:00 70 20 92/60 100 02/19/17 04:00 70 20 77/51 100 02/19/17 03:15 20 100 02/19/17 03:00 71 20 86/59 100 02/19/17 02:00 67 20 85/62 100 02/19/17 01:27 20 81/59 100 02/19/17 01:00 69 20 79/54 100 Intake and Output 02/18/17 02/19/17 02/19/17 23:59 07:59 15:59 Intake Total 1588 / 1588 702 / 702 Output Total 300 / 300 600 / 600 200 / 200 Balance 1288 / 1288 102 / 102 -200 / -200 Intake: IV Fluids 1588 / 1588 502 / 502 FentaNYL (PF) 3,000 MCG 286 / 286 In 0.9 % Sodium Chloride 240 ML @ 50 MCG/HR 5 mls/ hr IVC CONT CHARLA Rx#: [id number] Phenylephrine 20 MG In 1002 / 1002 502 / 502 Dextrose 5% 500 ML @ 40 MCG/MIN 60.24 mls/hr IVC CONT CHARLA Rx#:[id number] Zosyn 3.375 GM In 100 / 100 Dextrose 5% (Minibag+) 100 ML 100 ML @ 25 mls/hr IVPB Q12H CHARLA Rx#: [id number] Potassium Chloride 20 mEq 200 / 200 /100 mL 40 meq In 200 ml @ 100 mls/hr IVPB Q1H PRN Rx#:[id number] Other 200 / 200 Output: Urine 200 / 200 Catheter 200 / 200 500 / 500 Gastric Drainage 100 / 100 100 / 100 Other: Blood Glucose* 114 112 118 - General physical appearance well developed, well nourished, other (Moves all 4 extremities, developmental delay, does not follow commands, appears comfortable) - Eyes PERRL, normal ocular movement - ENT normal nares, dry mucosa, atraumatic, Other (NG and left Mcgee with dark brown drainage) - Neck Neck exam: trachea midline, no venous distension - Respiratory clear to auscultation, other (Intubated and ventilated) - Cardiovascular Cardiovascular exam: Present: RRR, no murmurs/rubs/gallops. Absent: JVD - Abdomen Abdomen: Present: soft, tender. Absent: bowel sounds present, distended, masses , rigid - Incision Incision: Present: clean and dry, intact - Genitourinary other (Vela catheter in place) - Integumentary no rash - Neurologic other (Developmental delay) - Musculoskeletal other (Moves all 4 extremities) - Labs 02/19/17 04:30 02/20/17 03:45 Diabetes panel 02/18/17 02/19/17 Range/Units 14:20 04:30 Sodium 125 L 122 L (136-145) mEq/L Potassium 3.9 4.3 (3.5-4.5) mEq/L Chloride 99 98 (98-109) mEq/L Carbon Dioxide 17 L 17 L (19-29) mEq/L BUN 46 H 45 H (7-20) mg/dL Creatinine 3.46 H 3.71 H (0.57-1.11) mg/dL Glucose 118 H 118 H (70-99) mg/dL Calcium 8.4 L 8.4 L (8.6-10.8) mg/dL Calcium panel 02/18/17 02/19/17 Range/Units 14:20 04:30 Calcium 8.4 L 8.4 L (8.6-10.8) mg/dL Phosphorus 2.2 L (2.3-4.7) mg/dL Pituitary panel 02/18/17 02/19/17 Range/Units 14:20 04:30 Sodium 125 L 122 L (136-145) mEq/L Potassium 3.9 4.3 (3.5-4.5) mEq/L Chloride 99 98 (98-109) mEq/L Carbon Dioxide 17 L 17 L (19-29) mEq/L BUN 46 H 45 H (7-20) mg/dL Creatinine 3.46 H 3.71 H (0.57-1.11) mg/dL Glucose 118 H 118 H (70-99) mg/dL Calcium 8.4 L 8.4 L (8.6-10.8) mg/dL Adrenal panel 02/18/17 02/19/17 Range/Units 14:20 04:30 Sodium 125 L 122 L (136-145) mEq/L Potassium 3.9 4.3 (3.5-4.5) mEq/L Chloride 99 98 (98-109) mEq/L Carbon Dioxide 17 L 17 L (19-29) mEq/L BUN 46 H 45 H (7-20) mg/dL Creatinine 3.46 H 3.71 H (0.57-1.11) mg/dL Glucose 118 H 118 H (70-99) mg/dL Calcium 8.4 L 8.4 L (8.6-10.8) mg/dL - VTE Documentation of Mechanical Device: Intermittent pneumatic compression device Consult Discharge Plan - Plan Referrals: NO,PCP [Primary Care Provider] - - Attending Attestation I examined this patient and my medical decision-making was reviewed with the [employer]USER CIRCULAR/PA/Advanced Practice Nurse/Resident Physician. I agree with the documented findings, disposition and treatment plan as described except to the extent set forth below. I agree with the above assessment and overall evaluation. Patient still requiring pressors for blood pressure support. Patient's will be added onto the schedule for an exploration by Dr. Barnes tomorrow.
[2017-02-19] MEDS ORDERED: Ringers Solution, Lactated 500 ML IVC ONE (08:42)
[2017-02-19 09:24] LABS: ABG Base Excess -7.2 mEq/L (-2.0 to 3.0); ABG HCO3 15.9 mEQ/L (21-27); ABG Oxygen Saturation 100 % (95-98); ABG PCO2 24 mmHg (35-45); ABG PH 7.43 pH Units (7.32-7.45); ABG PO2 213 mmHg (85-104); ABG TCO2 16.6 mEq/L (20-26)
[2017-02-19 09:25] LABS: Blood Gas FiO2 50 %
[2017-02-19] MEDS: FentaNYL (PF) 3,000 MCG in 0.9 % Sodium Chloride 240 ML IVC SCH (20:40)
[2017-02-20] MEDS: Lacri-Lube 3.5 GM TUBE BOTH EYES SCH ×6 (00:10→20:26)
[2017-02-20] MEDS: *HR* Dextrose 50 % in Water (Syg) 50 ML SYRINGE IVP PRN ×3 (00:11→03:47)
[2017-02-20] MEDS: Insulin LISPRO 300 UNITS/3 ML VIAL SQ SCH ×4 (00:11→20:26)
[2017-02-20] MEDS: Piperacillin/Tazobactam 3.375 GM in D5% in Water (Mini-Bag+) 100 ML IVPB SCH ×2 (03:51→17:54)
[2017-02-20 04:02] LABS: Ionized Calcium 1.33 mmol/L (1.15-1.35)
[2017-02-20 04:03] LABS: Calcium 8.8 mg/dL (8.6-10.8); Magnesium 1.9 mg/dL (1.6-2.6); Phosphorous 2.6 mg/dL (2.3-4.7); Potassium 4.1 mEq/L (3.5-4.5)
[2017-02-20] MEDS: Magnesium Sulfate 2 GM in D5% in Water 100 ML IVPB PRN (05:01)
[2017-02-20 05:06] LABS: ABG Base Excess -7.7 mEq/L (-2.0 to 3.0); ABG HCO3 17.3 mEQ/L (21-27); ABG Oxygen Saturation 99 % (95-98); ABG PCO2 32 mmHg (35-45); ABG PH 7.34 pH Units (7.32-7.45); ABG PO2 150 mmHg (85-104); ABG TCO2 18.3 mEq/L (20-26)
[2017-02-20 05:11] LABS: Blood Gas FiO2 35 %
[2017-02-20] MEDS: *HR* Heparin 5,000 UNIT/ML VIAL SQ SCH ×3 (05:37→17:57)
[2017-02-20 05:53] LABS: Eosinophils # 0.2 K/mcL (0.0-0.6); Eosinophils % 3.1 %; Hematocrit 21.5 % (35.3-44.9); Hemoglobin 7.4 g/dL (11.5-15.4); Immature Granulocytes % 0.7 % (0-4); Lymphocytes # 0.5 K/mcL (0.6-4.6); Lymphocytes % 6.7 %; Mean Corpuscular HGB Conc 34.4 g/dL (31.6-35.5); Mean Corpuscular Hemoglobin 31.4 pg (28.0-33.3); Mean Corpuscular Volume 91.1 fL (83.0-100.0); Mean Platelet Volume 11.1 fL (9.4-12.4); Monocytes # 0.4 K/mcL (0.0-1.3); Monocytes % 5.8 %; Neutrophils # 6.4 K/mcL (1.6-8.9); Platelet Count 166 K/mcL (140-400); Red Blood Count 2.36 M/mcL (3.82-4.97); Red Cell Distribution Width 13.2 % (11.5-14.5); Segmented Neutrophils % 83.7 %
--- NOTE | 2017-02-20 06:55 | Pulmonology Progress Note ---
Date of Encounter: 02/20/17 Time of Encounter: 06:55 Assessment and Plan (1) Gastric necrosis Current Visit: Yes Status: Acute POD #3 s/p gastric sleeve resection 02/17 continue post operative care midline incision closed with josh, no surrounding erythema, induration or drainage Dr. Barnes, surgery, plans to do EGD with possible PEG tube placement and re- exploratory surgery later today in the OR continue monitoring I/Os (2) Recent major surgery Current Visit: Yes Status: Acute as stated above (3) Postoperative anemia Current Visit: Yes Status: Acute continues to downtrend likely secondary to dilution hemoglobin 7.4 (8.8) transfuse 2 units pRBCs no signs of active bleeding at this time abdomen remains soft and nondistended (4) Hyponatremia Current Visit: Yes Status: Acute likely from a combination of dilution from fluids and volume losses from gastric output sodium improved 124 (122) continue to monitor closely no active signs of seizures, no clonus or rigidity received Albumin plan to start TPN to help with correction currently has only left femoral CVC, due to DEBORAH will wait before placing a PICC line - surgery planned for today, will reassess IV access afterwards (5) Acute kidney injury Current Visit: Yes Status: Acute worsening, likely pre-renal secondary from shock/fluid losses/surgery Creatinine 3.72 CK elevated but improved to 633 continues to make good urine output, 1150 cc today, 1200 cc UOP 02/19 gentle hydration strict I/Os AVOID nephrotoxins (6) Metabolic acidosis Current Visit: Yes Status: Acute non-anion gap metabolic acidosis from IV fluids and gastric losses continue to monitor (7) Elevated CPK Current Visit: Yes Status: Acute resolving CPK improved to 633 likely from nectrotic gastrum (8) Mental retardation Current Visit: Yes Status: Acute (9) DVT prophylaxis Current Visit: Yes Status: Acute Heparin and EPCDs in place Neuro/ Sedation: Fentanyl with versed pushes, appropriately sedated now. MRDD HEENT: No issues. Continue NG Cardio: shock likely distributive from sepsis and volume loss, off phenylephrine since 1730 yesterday 02/19, MAP >60 Pulm: currently on mechanical ventilation, going back to surgery today 02/20 GI: POD #3 s/p laparotomy with gastric sleeve procedure 02/17/2017. Repeat exploration and possible further resection on Monday. Continue NG. Hypoactive bowel sounds heard. Renal: DEBORAH in the setting of sepsis/shock/post-operative. Continue gentle hydration with IV albumin and monitoring urine output. Urine output increasing. 1150 mL since midnight. Avoid nephrotoxins and adjust medications as needed Acid base/FEN: NAG Metabolic acidosis likely from a combination of IV fluids and losses from NG. Also likely had increase in ADH from stress/ surgery. Consider starting TPN after surgery on Monday and possible PICC Heme: Downtrending anemia postoperative., hemoglobin 7.4 component of hemodilution. 2 units pRBCs ordered for transfusion ID: currently she does not meet sepsis criteria, source is like intra-abdominal from her necrotic stomach. Day 5 of Zosyn. Remains afebrile and has normal white count. Urine and blood culture showed no growth to date. Prophylaxis: EPCDs. Heparin, Protonix, routine skin care. Lines: left femoral, NG, ET, stern Subjective Principal diagnosis: SBO Interval history: No major events overnight. Patient has been off phenylephrine since 1729 yesterday. Patient is POD #3 laparotomy with gastric sleeve resection of the stomach. She remains intubated and sedated with fentanyl and versed pushes. Continues to open eyes to voice quickly falls back to sleep. She does not appear in any acute distress. Does not follow any simple commands. Objective PUL Vital signs: Last Vital Signs Temp 98.3 F 02/20/17 04:17 Pulse 58 02/20/17 06:00 Resp 16 02/20/17 06:00 BP 80/57 02/20/17 06:00 Pulse Ox 100 02/20/17 06:00 General appearance: no acute distress (intubated and sedated), other (opens eyes to voice) Eyes: nonicteric, other (PERRL) ENT: oropharynx moist, other (ET ang NG in place) Neck: supple Effort: other (mechanically ventilated with symmetric chest rise) Auscultation: bilateral: clear Cardiovascular: regular rate and rhythm Gastrointestinal: absent bowel sounds, hypoactive bowel sounds (lower quadrants) , soft, non-distended, other (midline incision with josh, no surrounding erythema, induration or discharge) Integumentary: normal Extremities: no edema, pink and warm non-focal exam (moves all 4 extremities), pupils equal and round, unable to assess due to mental status left femoral CVC in place without obvious signs of infection, dressing last changed 02/20 Ventilator Settings Ventilator Settings: Ventilator Settings, Last 8 Hours Ventilator Mode A/C Ventilator Mode A/C Ventilator Mode A/C Ventilator Mode A/C Ventilator Mode A/C Ventilator Mode A/C Ventilator Mode A/C Ventilator Mode A/C Ventilator Mode A/C Ventilator Mode A/C Ventilator Mode A/C Ventilator Mode A/C Ventilator Mode A/C Ventilator Tidal Volume 400 Setting Ventilator Tidal Volume 400 Setting Ventilator Tidal Volume 400 Setting Ventilator Tidal Volume 400 Setting Ventilator Tidal Volume 400 Setting Ventilator Tidal Volume 400 Setting Ventilator Tidal Volume 400 Setting Ventilator Tidal Volume 400 Setting Ventilator Tidal Volume 400 Setting Ventilator Tidal Volume 400 Setting Ventilator Tidal Volume 400 Setting Ventilator Tidal Volume 400 Setting Ventilator Tidal Volume 400 Setting Ventilator Respiratory Rate 16 Setting Ventilator Respiratory Rate 16 Setting Ventilator Respiratory Rate 16 Setting Ventilator Respiratory Rate 16 Setting Ventilator Respiratory Rate 16 Setting Ventilator Respiratory Rate 16 Setting Ventilator Respiratory Rate 16 Setting Ventilator Respiratory Rate 16 Setting Ventilator Respiratory Rate 16 Setting Ventilator Respiratory Rate 16 Setting Ventilator Respiratory Rate 16 Setting Ventilator Respiratory Rate 16 Setting Ventilator Respiratory Rate 16 Setting Actual Respiratory Rate 16 Actual Respiratory Rate 16 Actual Respiratory Rate 16 Actual Respiratory Rate 16 Actual Respiratory Rate 16 Actual Respiratory Rate 16 Actual Respiratory Rate 16 Actual Respiratory Rate 16 Actual Respiratory Rate 16 Actual Respiratory Rate 16 Actual Respiratory Rate 16 Actual Respiratory Rate 16 Positive End Expiratory 5 Pressure Positive End Expiratory 5 Pressure Positive End Expiratory 5 Pressure Positive End Expiratory 5 Pressure Positive End Expiratory 5 Pressure Positive End Expiratory 5 Pressure Positive End Expiratory 5 Pressure Positive End Expiratory 5 Pressure Positive End Expiratory 5 Pressure Positive End Expiratory 5 Pressure Positive End Expiratory 5 Pressure Positive End Expiratory 5 Pressure Positive End Expiratory 5 Pressure Peak Inspiratory Airway 20 Pressure Peak Inspiratory Airway 20 Pressure Peak Inspiratory Airway 21 Pressure Peak Inspiratory Airway 20 Pressure Peak Inspiratory Airway 21 Pressure Peak Inspiratory Airway 20 Pressure Peak Inspiratory Airway 20 Pressure Peak Inspiratory Airway 20 Pressure Peak Inspiratory Airway 20 Pressure Peak Inspiratory Airway 22 Pressure Peak Inspiratory Airway 22 Pressure Peak Inspiratory Airway 22 Pressure Results - Laboratory Findings CBC and BMP: 02/20/17 05:40 02/20/17 03:45 ABG ABG pH 7.34 pH Units (7.32-7.45) 02/20/17 04:54 ABG pCO2 32 mmHg (35-45) L 02/20/17 04:54 ABG pO2 150 mmHg (85-104) H 02/20/17 04:54 ABG O2 Saturation 99 % (95-98) H 02/20/17 04:54 PT/INR, D-dimer PT 13.1 Seconds (9.4-12.1) H 02/18/17 10:30 Abnormal lab findings: Abnormal lab results RBC 2.36 M/mcL (3.82-4.97) L 02/20/17 05:40 Hgb 7.4 g/dL (11.5-15.4) L 02/20/17 05:40 Hct 21.5 % (35.3-44.9) L 02/20/17 05:40 Lymphocytes # 0.5 K/mcL (0.6-4.6) L 02/20/17 05:40 Immature Plt Fraction 8.8 % (1.1-6.1) H 02/16/17 09:27 PT 13.1 Seconds (9.4-12.1) H 02/18/17 10:30 ABG pCO2 32 mmHg (35-45) L 02/20/17 04:54 ABG pO2 150 mmHg (85-104) H 02/20/17 04:54 ABG HCO3 17.3 mEQ/L (21-27) L 02/20/17 04:54 ABG Total CO2 18.3 mEq/L (20-26) L 02/20/17 04:54 ABG O2 Saturation 99 % (95-98) H 02/20/17 04:54 ABG Base Excess -7.7 mEq/L (-2.0 to 3.0) L 02/20/17 04:54 VBG pH 7.28 pH Units (7.32-7.42) L 02/18/17 14:20 VBG pCO2 38 mmHg (41-51) L 02/18/17 14:20 VBG pO2 70 mmHg (25-40) H 02/18/17 14:20 VBG HCO3 17.9 mEq/L (21-27) L 02/18/17 14:20 Sodium 124 mEq/L (136-145) L 02/20/17 03:45 Carbon Dioxide 15 mEq/L (19-29) L 02/20/17 03:45 BUN 45 mg/dL (7-20) H 02/20/17 03:45 Creatinine 3.72 mg/dL (0.57-1.11) H 02/20/17 03:45 Est GFR ( Amer) 15 (> 60) L 02/20/17 03:45 Est GFR (Non-Af Amer) 12 (> 60) L 02/20/17 03:45 POC Glucose 90 (58-89) H 02/20/17 04:49 Calculated Osmolality 268 (280-300) L 02/20/17 03:45 AST 118 Units/L (5-34) H 02/17/17 03:05 Alkaline Phosphatase 37 Units/L (38-126) L 02/17/17 03:05 Lactate Dehydrogenase 448 Units/L (159-327) H 02/16/17 09:27 Creatine Kinase 633 Units/L (29-168) H 02/18/17 04:20 Serum Total Protein 4.5 g/dL (6.0-8.3) L 02/17/17 03:05 Albumin 1.9 g/dL (3.5-5.0) L 02/17/17 03:05 Albumin/Globulin Ratio 0.7 (1.1-2.2) L 02/17/17 03:05 Lipase 184 Units/L (8-78) H 02/16/17 09:27 Urine Clarity Cloudy (Clear) A 02/16/17 15:50 Urine Protein 30 mg/dL (Neg-Trace) H 02/16/17 15:50 Urine Blood Large (Negative) H 02/16/17 15:50 Urine Microscopic RBC 50-100 per hpf (0-3) H 02/16/17 15:50 Urine Microscopic WBC 5-15 per hpf (0-3) H 02/16/17 15:50 Ur Squamous Epith Cells Many per lpf (None-Few) H 02/16/17 15:50 Waxy Casts Few per lpf (None Seen) H 02/16/17 15:50 Ur Culture Indicated? YES (NO) A 02/16/17 15:50 - Clinical Findings Intake & Output: Intake & Output 02/19/17 02/19/17 02/20/17 15:59 23:59 07:59 Intake Total 850 / 850 340 / 340 Output Total 400 / 400 800 / 800 750 / 750 Balance 450 / 450 -460 / -460 -750 / -750 Weight 60.963 kg - VTE Documentation of Mechanical Device: Intermittent pneumatic compression device Consult Discharge Plan - Plan Referrals: NO,PCP [Primary Care Provider] -
--- NOTE | 2017-02-20 08:12 | General Surgery Progress Note ---
Date of Encounter: 02/20/17 Time of Encounter: 08:10 - Assessment and Plan (1) Small bowel obstruction Current Visit: Yes Status: Acute POD#3 exploratory laparotomy with sleeve resection of the stomach due to gastric necrosis with Dr. 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 Subtotal gastrectomy with staple to the end of the esophagus for modified sleeve resection to ensure gastrointestinal continuity. Staple line demonstrated some visible black necrotic mucosa however seromuscular layer appeared viable. Abdomen soft, tender, bowel sounds hypoactive/absent. G-tube remains in place with minimal gastric output. 200cc /. Patient BP remains 90's systolic, has been off of phenylephrine pressor support since yesterday evening. Plan for EGD with possible PEG tube placement, possible exploratory laparotomy today. There is possible need to remove stomach remnant if it is not possible to perform the EGD. This procedure will be done in the OR with Dr. Barnes. Plan: -Keep NPO -Continue NG suction -Continue pain control and IV hydration -AM labs -Plan for EGD with possible PEG tube placement, possible exploratory laparotomy today. NG tube to low intermittent wall suction. No circumstances remove NG tubing. Keep NG tube in place. If NG tube becomes dislodged call surgical team immediately. Do not attempt to reinsert NG tube. (2) Gastric necrosis Current Visit: Yes Status: Acute (3) Acute pancreatitis Current Visit: Yes Status: Acute Qualifiers: Pancreatitis type: unspecified pancreatitis type Acute pancreatitis complication: unspecified Qualified Code(s): K85.90 - Acute pancreatitis without necrosis or infection, unspecified (4) Mental retardation Current Visit: Yes Status: Acute Subjective Narrative: The patient was seen and examined. She remains sedated on a ventilator. She has been off pressor support since 1730 yesterday evening. BP remained in the 90s systolic. No acute events overnight. Objective Vital Signs - Last 8 Hours Temp Pulse Resp BP Pulse Ox 02/20/17 07:53 16 80/57 100 02/20/17 06:00 58 16 80/57 100 02/20/17 05:57 16 97/67 100 02/20/17 05:00 62 16 83/56 100 02/20/17 04:17 98.3 F 02/20/17 04:00 74 16 98/63 100 02/20/17 03:49 16 90/69 100 02/20/17 03:00 61 16 83/58 100 02/20/17 02:00 55 16 82/58 100 02/20/17 01:25 16 85/55 100 02/20/17 01:00 59 16 85/55 100 Intake and Output 02/19/17 02/20/17 02/20/17 23:59 07:59 15:59 Intake Total 340 / 340 Output Total 800 / 800 750 / 750 Balance -460 / -460 -750 / -750 Intake: IV Fluids 340 / 340 FentaNYL (PF) 3,000 MCG 240 / 240 In 0.9 % Sodium Chloride 240 ML @ 50 MCG/HR 5 mls/ hr IVC CONT [facility] Rx#: [id number] Zosyn 3.375 GM In 100 / 100 Dextrose 5% (Minibag+) 100 ML 100 ML @ 25 mls/hr IVPB Q12H [facility] Rx#: [id number] Output: Catheter 700 / 700 750 / 750 Gastric Drainage 100 / 100 Other: Weight 60.963 kg Blood Glucose* 90 Patient Weight 02/20/17 23:59 Weight 60.963 kg - General physical appearance moderate distress, moderate pain, chronically ill, other (Sedated and on a ventilator) - Eyes PERRL - ENT dry mucosa, atraumatic, normocephalic, Other (NG in place) - Neck Neck exam: trachea midline - Respiratory normal expansion, normal respiratory effort, clear to auscultation - Cardiovascular Cardiovascular exam: Present: RRR - Abdomen Abdomen: Present: bowel sounds present (hypoactive), soft, tender Abdominal Tenderness: diffusely - Incision Incision: Present: clean and dry - Integumentary no rash, no growths, no abnormal pigmentation - Labs 02/20/17 05:40 02/20/17 03:45 Diabetes panel 02/20/17 Range/Units 03:45 Sodium 124 L (136-145) mEq/L Potassium 4.1 (3.5-4.5) mEq/L Chloride 101 (98-109) mEq/L Carbon Dioxide 15 L (19-29) mEq/L BUN 45 H (7-20) mg/dL Creatinine 3.72 H (0.57-1.11) mg/dL Glucose 73 (70-99) mg/dL Calcium 8.8 (8.6-10.8) mg/dL Calcium panel 02/20/17 Range/Units 03:45 Calcium 8.8 (8.6-10.8) mg/dL Phosphorus 2.6 (2.3-4.7) mg/dL Pituitary panel 02/20/17 Range/Units 03:45 Sodium 124 L (136-145) mEq/L Potassium 4.1 (3.5-4.5) mEq/L Chloride 101 (98-109) mEq/L Carbon Dioxide 15 L (19-29) mEq/L BUN 45 H (7-20) mg/dL Creatinine 3.72 H (0.57-1.11) mg/dL Glucose 73 (70-99) mg/dL Calcium 8.8 (8.6-10.8) mg/dL Adrenal panel 02/20/17 Range/Units 03:45 Sodium 124 L (136-145) mEq/L Potassium 4.1 (3.5-4.5) mEq/L Chloride 101 (98-109) mEq/L Carbon Dioxide 15 L (19-29) mEq/L BUN 45 H (7-20) mg/dL Creatinine 3.72 H (0.57-1.11) mg/dL Glucose 73 (70-99) mg/dL Calcium 8.8 (8.6-10.8) mg/dL - VTE Documentation of Mechanical Device: Intermittent pneumatic compression device Consult Discharge Plan - Plan Referrals: NO,PCP [Primary Care Provider] - - Attending Attestation I examined this patient and my medical decision-making was reviewed with the [employer] DISPATCHER/PA/Advanced Practice Nurse/Resident Physician. I agree with the documented findings, disposition and treatment plan as described except to the extent set forth below. The patient is seen and evaluated on morning rounds. I discussed her care with the critical care team as well as nursing. She is off pressor agents. Nasogastric tube is draining bile. Her white blood cell count is normal. She does not appear to be septic. Certainly we need to evaluate the gastric remnant. I will plan on doing upper endoscopy and possible PEG tube placement in the small antral remnant proximal to the pylorus. If the gastric remnant looks necrotic anyway or if I feel the staple line is nonintact, or if I feel the gastric remnant is inadequate, I will perform exploratory laparotomy and completion of total gastrectomy with esophagojejunostomy and jejunostomy tube placement. The patient is fortunate to have survived this long. We will evaluate her gastric continuity and her ability to obtain nutrition. Surgical therapy will be planned on these findings. We will proceed later today. Dane Barnes MD FACS
[2017-02-20] MEDS: Chlorhexidine Rinse 15 ML MOUTHWASH MM SCH ×2 (08:32→20:25)
[2017-02-20] MEDS: Pantoprazole 40 MG VIAL IVPB SCH (08:32)
[2017-02-20] MEDS ORDERED: 0.9 % Sodium Chloride 500 ML ONE (12:03)
[2017-02-20] MEDS ORDERED: D10% in Water 500 ML IVC PRN (12:14)
[2017-02-20] MEDS ORDERED: Ringers Solution, Lactated 1,000 ML ONE (14:12)
--- NOTE | 2017-02-20 15:03 | Anesthesia Evaluation PreOp ---
Date of Encounter: 02/20/17 Time of Encounter: 15:01 - Past History Planned Operation: explor. laparotomy, EGD and PEG tube Cardiac History: HTN, Arrhythmia (A-fib with RVR) Pulmonary History: Denies Any Significant HX, Snore LABORATORY MILLER History: Other (MRDD, anxiety) Other Medical History: Renal (CKD), Other (acute pancreatitis, necrosis of stomach) Anesthesia History: No Prior Anesthetic Complications, Past Anesthesia (recent subtotal gastrectomy 02/17) : No Alcohol Use: none Drug use: none Medications and Allergies Acetaminophen [Tylenol] 1,000 mg PO Q4H PRN 02/15/17 [History] Calcium Carbonate/Simethicone [[place] Heartburn+Gas] 1 each PO Q4H PRN [History] Haloperidol [Haldol] 1 mg PO BID 02/15/17 [History] Meloxicam [Mobic] 15 mg PO DAILY PRN 02/15/17 [History] Polyethylene Glycol 3350 [Smoothlax] 17 gm PO DAILY PRN 02/15/17 [History] hydrOXYzine HCl [Hydroxyzine HCl] 12.5 - 50 mg PO Q6H PRN 02/15/17 [History] Allergies No Known Allergies Allergy (Verified 07/16/15 22:23) - Meds/Allergy Pre-op Review Medications Reviewed: Yes Allergies Reviewed: Yes Beta Blockers on Current Med List: No Anesthesia Results - Labs 02/20/17 05:40 02/20/17 03:45 Anesthesia Exam Selected Entries 02/20/17 12:33 02/20/17 14:00 Temperature 98.0 F Pulse Rate 59 Respiratory Rate 16 Blood Pressure 114/58 O2 Sat by Pulse Oximetry 100 Fraction of Inspired Oxygen 35 Oxygen Delivery Method Mechanical Ventilation Weight: 61kg NPO (# of Hours): intubated - HEENT Mallampati: Intubated - LABORATORY MILLER LOC: Unable to assess - Cardiac Rhythm: Regular Murmur: None - Pulmonary Breath Sounds: bilateral Clear Respiratory Effort: Symmetrical (intubated, mechanically ventilated) Anesthesia Assess/Plan ASA Score: 5 Modified Tejinder Scale for Level of Consciousness: Asleep with brisk response to stimulus Anesthetic Plan: General Monitoring Plan: Standard Monitors, A-Line Recovery Plan: ICU (no POA pesent, will use surgical consent as implied consent for anesthesia)
[2017-02-20] MEDS ORDERED: 0.9 % Sodium Chloride 250 ML ONE (15:31)
[2017-02-20] MEDS ORDERED: *HR* Propofol 200 MG/20 ML VIAL IVP ONE ×2 (15:38→17:08)
[2017-02-20] MEDS ORDERED: Lidocaine -MPF 2% 2 ML VIAL ONE (15:38)
[2017-02-20] MEDS ORDERED: *HR* Rocuronium Bromide 50 MG/5 ML VIAL ONE (15:38)
[2017-02-20] MEDS ORDERED: *HR* FentaNYL (PF) 100 MCG/2 ML VIAL ONE (15:38)
[2017-02-20] MEDS ORDERED: *HR* Phenylephrine 10 MG/ML VIAL ONE (15:40)
[2017-02-20] MEDS ORDERED: EPHEDrine 50 MG/ML VIAL ONE (15:40)
[2017-02-20] MEDS ORDERED: Water for inj. (sterile) 10 ML IV ONE (15:40)
[2017-02-20] MEDS: FentaNYL (PF) 3,000 MCG in 0.9 % Sodium Chloride 240 ML IVC SCH (16:45)
[2017-02-20] MEDS ORDERED: Clinimix E 5%-15% SOLUTION 2,000 ML with MVI, adult with vitamin K 10 ML IVC SCH (17:00)
[2017-02-20] MEDS: Phenylephrine 20 MG in D5% in Water 500 ML IVC SCH ×2 (17:09→20:27)
[2017-02-20] MEDS: Ringers Solution, Lactated 1,000 ML IVC SCH (17:52)
[2017-02-20] MEDS: *HR* Midazolam HCl 2 MG/2 ML VIAL IVP PRN (23:52)
[2017-02-21] MEDS: Lacri-Lube 3.5 GM TUBE BOTH EYES SCH ×6 (00:02→19:44)
[2017-02-21] MEDS: Insulin LISPRO 300 UNITS/3 ML VIAL SQ SCH ×4 (00:02→18:44)
[2017-02-21] MEDS: *HR* Midazolam HCl 2 MG/2 ML VIAL IVP PRN (03:45)
[2017-02-21 05:03] LABS: Basophils % 0.1 %; Eosinophils # 0.3 K/mcL (0.0-0.6); Eosinophils % 3.8 %; Hematocrit 29.6 % (35.3-44.9); Hemoglobin 10.4 g/dL (11.5-15.4); Immature Granulocytes % 1.1 % (0-4); Lymphocytes # 0.5 K/mcL (0.6-4.6); Lymphocytes % 5.8 %; Mean Corpuscular HGB Conc 35.1 g/dL (31.6-35.5); Mean Corpuscular Volume 88.4 fL (83.0-100.0); Mean Platelet Volume 10.8 fL (9.4-12.4); Monocytes # 0.5 K/mcL (0.0-1.3); Monocytes % 5.7 %; Neutrophils # 6.6 K/mcL (1.6-8.9); Platelet Count 179 K/mcL (140-400); Red Blood Count 3.35 M/mcL (3.82-4.97); Red Cell Distribution Width 14.5 % (11.5-14.5); Segmented Neutrophils % 83.5 %
[2017-02-21] MEDS: Piperacillin/Tazobactam 3.375 GM in D5% in Water (Mini-Bag+) 100 ML IVPB SCH ×2 (05:05→16:44)
[2017-02-21] MEDS: FentaNYL (PF) 3,000 MCG in 0.9 % Sodium Chloride 240 ML IVC SCH ×2 (05:05→19:45)
[2017-02-21 05:24] LABS: Magnesium 2.4 mg/dL (1.6-2.6)
[2017-02-21] MEDS: *HR* Heparin 5,000 UNIT/ML VIAL SQ SCH ×2 (06:21→18:46)
--- NOTE | 2017-02-21 07:35 | General Surgery Progress Note ---
Date of Encounter: 02/21/17 Time of Encounter: 07:43 - Assessment and Plan (1) Small bowel obstruction Current Visit: Yes Status: Acute POD#4 exploratory laparotomy with sleeve resection of the stomach due to gastric necrosis with Dr. 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 Subtotal gastrectomy with staple to the end of the esophagus for modified sleeve resection to ensure gastrointestinal continuity. Staple line demonstrated some visible black necrotic mucosa however seromuscular layer appeared viable. EGD with PEG tube placement 02/20/[address] Barnes. PEG site clean, dry. 15cc gastric drainage. Abdomen soft, diffusely tender, bowel sounds hypoactive. Patient BP remains 90's systolic, remains off of pressor support. Bowel sounds improve overnight, may start trickle feeds tomorrow. Plan: -Keep NPO -Continue TPN -Continue pain control and IV hydration -AM labs -Once PICC line has been placed, whole groin CVC (2) Gastric necrosis Current Visit: Yes Status: Acute (3) Acute pancreatitis Current Visit: Yes Status: Acute Qualifiers: Pancreatitis type: unspecified pancreatitis type Acute pancreatitis complication: unspecified Qualified Code(s): K85.90 - Acute pancreatitis without necrosis or infection, unspecified (4) Mental retardation Current Visit: Yes Status: Acute Subjective Narrative: The patient was seen and examined. There were no acute events overnight. Patient remains off pressors, blood pressures are in the 80s to 90s systolic PEG tube placed yesterday, site is clean and nonerythematous. Patient has hypoactive bowel sounds, arouses easily with stimulation. 15cc PEG tube output. Objective Vital Signs - Last 8 Hours Temp Pulse Resp BP Pulse Ox 02/21/17 07:27 55 16 85/57 95 02/21/17 06:05 16 86/59 97 02/21/17 06:00 53 16 86/59 97 02/21/17 05:00 50 16 78/55 97 02/21/17 04:11 16 93/65 93 02/21/17 04:00 96.2 F L 50 16 93/65 100 02/21/17 03:00 53 16 82/58 100 02/21/17 02:31 16 80/57 100 02/21/17 02:00 53 16 80/57 100 02/21/17 01:00 49 16 74/51 100 02/21/17 00:11 16 86/60 100 02/21/17 00:00 97.6 F 56 16 86/60 100 Intake and Output 02/20/17 02/20/17 02/21/17 15:59 23:59 07:59 Intake Total 852 / 852 600 / 600 350 / 350 Output Total 1050 / 1050 612 / 612 835 / 835 Balance -198 / -198 -12 / -12 -485 / -485 Intake: IV Fluids 502 / 502 250 / 250 350 / 350 FentaNYL (PF) 3,000 MCG 250 / 250 In 0.9 % Sodium Chloride 240 ML @ 50 MCG/HR 5 mls/ hr IVC CONT [facility] Rx#: [id number] Phenylephrine 20 MG In 402 / 402 Dextrose 5% 500 ML @ 40 MCG/MIN 60.24 mls/hr IVC CONT [facility] Rx#:[id number] Intralipid 20% 250 ML @ 250 / 250 21 mls/hr IVPB DAILY@1700 [facility] Rx#:[id number] Zosyn 3.375 GM In 100 / 100 100 / 100 Dextrose 5% (Minibag+) 100 ML 100 ML @ 25 mls/hr IVPB Q12H [facility] Rx#: [id number] Blood Product 350 / 350 350 / 350 Rbcs Leuko Poor As-1 0 / 0 350 / 350 Unit [id number] Rbcs Leuko Poor As-1 350 / 350 Unit [id number] Output: Estimated Blood Loss 0 / 0 Urine Amount (Catheter) 200 / 200 Catheter 1050 / 1050 400 / 400 800 / 800 Gastric Drainage 35 / 35 Other: Weight 60.5 kg Blood Glucose* 71 110 Patient Weight 02/21/17 23:59 Weight 60.5 kg - General physical appearance moderate distress, moderate pain, chronically ill, other (sedated and intubated on a ventilator) - Eyes PERRL - ENT atraumatic, normocephalic - Neck Neck exam: trachea midline, no venous distension - Respiratory normal expansion, clear to auscultation - Cardiovascular Cardiovascular exam: Present: RRR, no murmurs/rubs/gallops - Abdomen Abdomen: Present: bowel sounds present (hypoactive), soft, tender. Absent: distended Abdominal Tenderness: diffusely Additional Comments: PEG tube in place, site clean and dry, non-erythemetous - Incision Incision: Present: clean and dry. Absent: erythema - Integumentary no rash, no growths, no abnormal pigmentation - Labs 02/21/17 04:28 02/21/17 04:28 Diabetes panel 02/20/17 02/21/17 Range/Units 15:30 04:28 Sodium 130 L (136-145) mEq/L Potassium 4.0 (3.5-4.5) mEq/L Chloride 106 (98-109) mEq/L Carbon Dioxide 17 L (19-29) mEq/L BUN 45 H (7-20) mg/dL Creatinine 3.48 H (0.57-1.11) mg/dL Glucose 110 H (70-99) mg/dL Calcium 9.0 (8.6-10.8) mg/dL Triglycerides 146 (< 150) mg/dL Calcium panel 02/21/17 Range/Units 04:28 Calcium 9.0 (8.6-10.8) mg/dL Phosphorus 3.0 (2.3-4.7) mg/dL Pituitary panel 02/21/17 Range/Units 04:28 Sodium 130 L (136-145) mEq/L Potassium 4.0 (3.5-4.5) mEq/L Chloride 106 (98-109) mEq/L Carbon Dioxide 17 L (19-29) mEq/L BUN 45 H (7-20) mg/dL Creatinine 3.48 H (0.57-1.11) mg/dL Glucose 110 H (70-99) mg/dL Calcium 9.0 (8.6-10.8) mg/dL Adrenal panel 02/21/17 Range/Units 04:28 Sodium 130 L (136-145) mEq/L Potassium 4.0 (3.5-4.5) mEq/L Chloride 106 (98-109) mEq/L Carbon Dioxide 17 L (19-29) mEq/L BUN 45 H (7-20) mg/dL Creatinine 3.48 H (0.57-1.11) mg/dL Glucose 110 H (70-99) mg/dL Calcium 9.0 (8.6-10.8) mg/dL - VTE Documentation of Mechanical Device: Intermittent pneumatic compression device Consult Discharge Plan - Plan Referrals: NO,PCP [Primary Care Provider] - - Attending Attestation I examined this patient and my medical decision-making was reviewed with the NAT INSTRUCTOR/PA/Advanced Practice Nurse/Resident Physician. I agree with the documented findings, disposition and treatment plan as described except to the extent set forth below. The patient is seen and evaluated on morning rounds. I blood cell count is normal. There is no evidence of clinical bleeding. The PEG tube is draining clear bilious fluid low in volume. There is no evidence of gastric bleeding. We will continue supportive care. We will start feedings when she developed bowel sounds Dane Barnes MD FACS
[2017-02-21] MEDS: Chlorhexidine Rinse 15 ML MOUTHWASH MM SCH ×2 (08:33→19:47)
[2017-02-21] MEDS: Pantoprazole 40 MG VIAL IVPB SCH (08:33)
--- NOTE | 2017-02-21 11:13 | Pulmonology Progress Note ---
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 S/P PEG placement 02/21/17 appreciate Surgery. (2) Recent major surgery Current Visit: Yes Status: Acute as stated above. (3) Sepsis Current Visit: Yes Status: Acute Blood cultures show no growth to date. Afebrile. Leukocytosis resolved. Lactic acidosis resolved. Source is likely from gastric necrosis. Currently Day 6 of Zosyn. Will plan to DC after 7 days If ok with Surgery. (4) DEBORAH (acute kidney injury) Current Visit: Yes Status: Acute Pre renal from shock/fluid losses/ surgery. She has improving renal function. Urine output improving/ good. Strict Is and Os Avoid nephrotoxins (5) Hyponatremia Current Visit: Yes Status: Acute Likely from a combination of increased ADH secretion from stress/ Surgery and volume losses. Sodium is up trending from 125-130. Continue to monitor closely. (6) Mental retardation Current Visit: Yes Status: Acute (7) Metabolic acidosis Current Visit: Yes Status: Acute Non anion gap acidosis. From IV fluids and Gastric losses. improving. (8) Elevated CK Current Visit: Yes Status: Acute likely from necrotic stomach. down trended. (9) Postoperative anemia Current Visit: Yes Status: Acute S/P 2 units PRBC 02/20/17. Hg increased appropriately. continue to follow. (10) DVT prophylaxis Current Visit: Yes Status: Acute Neuro/ Sedation: Fentanyl with versed pushes. Appropriately sedated now. MRDD HEENT: No issues. Continue NG Cardio: Shock. Likely from a combination of sepsis and volume loss. Resolved/ Off pressor agents. Pulm: Currently on mechanical ventilation. Requiring very little support. Plan to try to extubate today. GI: S/P Laparotomy with gastric sleeve procedure. 02/17/2017. PEG tube . continue postoperative care. Renal: DEBORAH in the setting of sepsis/ Shock/ post operative. Urine output increasing. SCR trending down. Avoid nephrotoxins and adjust medications as needed. Acid base/FEN: NAG MEtabolic acidosis Likely from a combination of IV fluids and losses from NG. Improving. Hyponatremia improving as well. Heme: Postoperative anemia. asymptomatic Continue to monitor. ID: Currently she does not meet sepsis criteria. Sources like intra-abdominal from her necrotic stomach. She is afebrile and has normal white count. Urine and blood culture showed no growth to date. Plan will be to DC zosyn after a 7 day course. Prophylaxis: EPCDs. Heparin, Protonix, routine skin care. Lines: Right femoral, ET, Vela. Plann to place PICC today 02/21/17. DC femoral line and ET tube. Subjective Principal diagnosis: SBO Interval history: No major events overnight. Patient did get a PEG tube yesterday. She has been weaned off of Vassopressors and is requiring little Ventilatory support. She is intubated and on fentanyl for sedation. She appears comfortable. Objective PUL Vital signs: Last Vital Signs Temp 96.8 F L 02/21/17 07:34 Pulse 53 02/21/17 10:29 Resp 16 02/21/17 10:29 BP 89/74 02/21/17 10:29 Pulse Ox 98 02/21/17 10:29 Gen.: This is a well-developed well-nourished 62-year-old female who is currently on mechanical ventilation and sedated with fentanyl. She does wake during my exam and moves all of her limbs. HEENT: Pupils are equally round reactive light accommodation, anicteric sclera, ET tube in place. Trachea midline. Heart: Regular rate and rhythm without murmurs rubs or gallops. Lungs: His normal rising states the chest wall bilaterally. Clear to auscultation bilaterally. Abdomen: The abdomen is nondistended, the incision/staple line is clean dry and intact with no drainage. She does have a PEG tube in place. Bowel sounds are hypoactive but present. The abdomen is soft palpation. Musculoskeletal: Grossly normal for age no gross deformity noted. Extremities: There is no clubbing, or cyanosis. No edema. Integument: No rashes or lesions. Lines: No signs of infection with the femoral central venous catheter. Ventilator Settings Ventilator Settings: Ventilator Settings, Last 8 Hours Ventilator Mode A/C Ventilator Mode A/C Ventilator Mode A/C Ventilator Mode A/C Ventilator Mode A/C Ventilator Tidal Volume 400 Setting Ventilator Tidal Volume 400 Setting Ventilator Tidal Volume 400 Setting Ventilator Tidal Volume 400 Setting Ventilator Tidal Volume 400 Setting Ventilator Respiratory Rate 16 Setting Ventilator Respiratory Rate 16 Setting Ventilator Respiratory Rate 16 Setting Ventilator Respiratory Rate 16 Setting Ventilator Respiratory Rate 16 Setting Actual Respiratory Rate 16 Actual Respiratory Rate 16 Actual Respiratory Rate 16 Actual Respiratory Rate 16 Actual Respiratory Rate 16 Positive End Expiratory 5 Pressure Positive End Expiratory 5 Pressure Positive End Expiratory 5 Pressure Positive End Expiratory 5 Pressure Positive End Expiratory 5 Pressure Peak Inspiratory Airway 18 Pressure Peak Inspiratory Airway 20 Pressure Peak Inspiratory Airway 19 Pressure Peak Inspiratory Airway 18 Pressure Peak Inspiratory Airway 15 Pressure Results - Laboratory Findings CBC and BMP: 02/21/17 04:28 02/21/17 04:28 ABG ABG pH 7.34 pH Units (7.32-7.45) 02/20/17 04:54 ABG pCO2 32 mmHg (35-45) L 02/20/17 04:54 ABG pO2 150 mmHg (85-104) H 02/20/17 04:54 ABG O2 Saturation 99 % (95-98) H 02/20/17 04:54 PT/INR, D-dimer PT 13.1 Seconds (9.4-12.1) H 02/18/17 10:30 Abnormal lab findings: Abnormal lab results RBC 3.35 M/mcL (3.82-4.97) L 02/21/17 04:28 Hgb 10.4 g/dL (11.5-15.4) L D 02/21/17 04:28 Hct 29.6 % (35.3-44.9) L 02/21/17 04:28 Lymphocytes # 0.5 K/mcL (0.6-4.6) L 02/21/17 04:28 Immature Plt Fraction 8.8 % (1.1-6.1) H 02/16/17 09:27 PT 13.1 Seconds (9.4-12.1) H 02/18/17 10:30 ABG pCO2 32 mmHg (35-45) L 02/20/17 04:54 ABG pO2 150 mmHg (85-104) H 02/20/17 04:54 ABG HCO3 17.3 mEQ/L (21-27) L 02/20/17 04:54 ABG Total CO2 18.3 mEq/L (20-26) L 02/20/17 04:54 ABG O2 Saturation 99 % (95-98) H 02/20/17 04:54 ABG Base Excess -7.7 mEq/L (-2.0 to 3.0) L 02/20/17 04:54 VBG pH 7.28 pH Units (7.32-7.42) L 02/18/17 14:20 VBG pCO2 38 mmHg (41-51) L 02/18/17 14:20 VBG pO2 70 mmHg (25-40) H 02/18/17 14:20 VBG HCO3 17.9 mEq/L (21-27) L 02/18/17 14:20 Sodium 130 mEq/L (136-145) L 02/21/17 04:28 Carbon Dioxide 17 mEq/L (19-29) L 02/21/17 04:28 BUN 45 mg/dL (7-20) H 02/21/17 04:28 Creatinine 3.48 mg/dL (0.57-1.11) H 02/21/17 04:28 Est GFR ( Amer) 16 (> 60) L 02/21/17 04:28 Est GFR (Non-Af Amer) 13 (> 60) L 02/21/17 04:28 Glucose 110 mg/dL (70-99) H 02/21/17 04:28 POC Glucose 119 (58-89) H 02/21/17 06:13 AST 118 Units/L (5-34) H 02/17/17 03:05 Alkaline Phosphatase 37 Units/L (38-126) L 02/17/17 03:05 Lactate Dehydrogenase 448 Units/L (159-327) H 02/16/17 09:27 Creatine Kinase 633 Units/L (29-168) H 02/18/17 04:20 Serum Total Protein 4.5 g/dL (6.0-8.3) L 02/17/17 03:05 Albumin 1.9 g/dL (3.5-5.0) L 02/17/17 03:05 Albumin/Globulin Ratio 0.7 (1.1-2.2) L 02/17/17 03:05 Prealbumin 7.0 mg/dL (16.0-38.0) L 02/20/17 15:30 Lipase 184 Units/L (8-78) H 02/16/17 09:27 Urine Clarity Cloudy (Clear) A 02/16/17 15:50 Urine Protein 30 mg/dL (Neg-Trace) H 02/16/17 15:50 Urine Blood Large (Negative) H 02/16/17 15:50 Urine Microscopic RBC 50-100 per hpf (0-3) H 02/16/17 15:50 Urine Microscopic WBC 5-15 per hpf (0-3) H 02/16/17 15:50 Ur Squamous Epith Cells Many per lpf (None-Few) H 02/16/17 15:50 Waxy Casts Few per lpf (None Seen) H 02/16/17 15:50 Ur Culture Indicated? YES (NO) A 02/16/17 15:50 - Clinical Findings Intake & Output: Intake & Output 02/20/17 02/21/17 02/21/17 23:59 07:59 15:59 Intake Total 600 / 600 350 / 350 335 / 335 Output Total 612 / 612 1035 / 1035 Balance -12 / -12 -685 / -685 335 / 335 Weight 61.7 kg 61.7 kg - VTE Documentation of Mechanical Device: Intermittent pneumatic compression device Consult Discharge Plan - Plan Referrals: NO,PCP [Primary Care Provider] - <Michael Mo - Last Filed: 02/21/17 16:04> Date of Encounter: 02/21/17 Objective PUL Vital signs: Last Vital Signs Temp 98.4 F 02/21/17 15:28 Pulse 62 02/21/17 15:27 Resp 12 02/21/17 15:07 BP 111/70 02/21/17 15:07 Pulse Ox 98 02/21/17 15:07 Ventilator Settings Ventilator Settings: Ventilator Settings, Last 8 Hours Ventilator Mode A/C Ventilator Mode A/C Ventilator Mode A/C Ventilator Tidal Volume 400 Setting Ventilator Tidal Volume 400 Setting Ventilator Tidal Volume 400 Setting Ventilator Respiratory Rate 12 Setting Ventilator Respiratory Rate 16 Setting Ventilator Respiratory Rate 16 Setting Actual Respiratory Rate 12 Actual Respiratory Rate 16 Actual Respiratory Rate 16 Positive End Expiratory 5 Pressure Positive End Expiratory 5 Pressure Positive End Expiratory 5 Pressure Peak Inspiratory Airway 21 Pressure Peak Inspiratory Airway 21 Pressure Peak Inspiratory Airway 18 Pressure Results - Laboratory Findings CBC and BMP: 02/21/17 04:28 02/21/17 04:28 ABG ABG pH 7.34 pH Units (7.32-7.45) 02/20/17 04:54 ABG pCO2 32 mmHg (35-45) L 02/20/17 04:54 ABG pO2 150 mmHg (85-104) H 02/20/17 04:54 ABG O2 Saturation 99 % (95-98) H 02/20/17 04:54 PT/INR, D-dimer PT 13.1 Seconds (9.4-12.1) H 02/18/17 10:30 Abnormal lab findings: Abnormal lab results RBC 3.35 M/mcL (3.82-4.97) L 02/21/17 04:28 Hgb 10.4 g/dL (11.5-15.4) L D 02/21/17 04:28 Hct 29.6 % (35.3-44.9) L 02/21/17 04:28 Lymphocytes # 0.5 K/mcL (0.6-4.6) L 02/21/17 04:28 Immature Plt Fraction 8.8 % (1.1-6.1) H 02/16/17 09:27 PT 13.1 Seconds (9.4-12.1) H 02/18/17 10:30 ABG pCO2 32 mmHg (35-45) L 02/20/17 04:54 ABG pO2 150 mmHg (85-104) H 02/20/17 04:54 ABG HCO3 17.3 mEQ/L (21-27) L 02/20/17 04:54 ABG Total CO2 18.3 mEq/L (20-26) L 02/20/17 04:54 ABG O2 Saturation 99 % (95-98) H 02/20/17 04:54 ABG Base Excess -7.7 mEq/L (-2.0 to 3.0) L 02/20/17 04:54 VBG pH 7.28 pH Units (7.32-7.42) L 02/18/17 14:20 VBG pCO2 38 mmHg (41-51) L 02/18/17 14:20 VBG pO2 70 mmHg (25-40) H 02/18/17 14:20 VBG HCO3 17.9 mEq/L (21-27) L 02/18/17 14:20 Sodium 130 mEq/L (136-145) L 02/21/17 04:28 Carbon Dioxide 17 mEq/L (19-29) L 02/21/17 04:28 BUN 45 mg/dL (7-20) H 02/21/17 04:28 Creatinine 3.48 mg/dL (0.57-1.11) H 02/21/17 04:28 Est GFR ( Amer) 16 (> 60) L 02/21/17 04:28 Est GFR (Non-Af Amer) 13 (> 60) L 02/21/17 04:28 Glucose 110 mg/dL (70-99) H 02/21/17 04:28 POC Glucose 113 (58-89) H 02/21/17 11:28 AST 118 Units/L (5-34) H 02/17/17 03:05 Alkaline Phosphatase 37 Units/L (38-126) L 02/17/17 03:05 Lactate Dehydrogenase 448 Units/L (159-327) H 02/16/17 09:27 Creatine Kinase 633 Units/L (29-168) H 02/18/17 04:20 Serum Total Protein 4.5 g/dL (6.0-8.3) L 02/17/17 03:05 Albumin 1.9 g/dL (3.5-5.0) L 02/17/17 03:05 Albumin/Globulin Ratio 0.7 (1.1-2.2) L 02/17/17 03:05 Prealbumin 7.0 mg/dL (16.0-38.0) L 02/20/17 15:30 Lipase 184 Units/L (8-78) H 02/16/17 09:27 Urine Clarity Cloudy (Clear) A 02/16/17 15:50 Urine Protein 30 mg/dL (Neg-Trace) H 02/16/17 15:50 Urine Blood Large (Negative) H 02/16/17 15:50 Urine Microscopic RBC 50-100 per hpf (0-3) H 02/16/17 15:50 Urine Microscopic WBC 5-15 per hpf (0-3) H 02/16/17 15:50 Ur Squamous Epith Cells Many per lpf (None-Few) H 02/16/17 15:50 Waxy Casts Few per lpf (None Seen) H 02/16/17 15:50 Ur Culture Indicated? YES (NO) A 02/16/17 15:50 - Clinical Findings Intake & Output: Intake & Output 02/21/17 02/21/17 02/21/17 07:59 15:59 23:59 Intake Total 350 / 350 1745 / 1745 Output Total 1035 / 1035 750 / 750 Balance -685 / -685 995 / 995 Weight 61.7 kg 61.7 kg
[2017-02-21] MEDS ORDERED: Clinimix E 5%-15% SOLUTION 2,000 ML with MVI, adult with vitamin K 10 ML IVC SCH (17:00)
[2017-02-21] MEDS: Phenylephrine 20 MG in D5% in Water 500 ML IVC SCH (19:44)
[2017-02-22] MEDS: Insulin LISPRO 300 UNITS/3 ML VIAL SQ SCH ×4 (00:02→18:24)
[2017-02-22] MEDS: Lacri-Lube 3.5 GM TUBE BOTH EYES SCH ×3 (00:02→07:32)
[2017-02-22] MEDS: *HR* Midazolam HCl 2 MG/2 ML VIAL IVP PRN (00:40)
[2017-02-22 04:42] LABS: Basophils % 0.3 %; Eosinophils # 0.3 K/mcL (0.0-0.6); Eosinophils % 2.6 %; Hematocrit 32.9 % (35.3-44.9); Hemoglobin 11.3 g/dL (11.5-15.4); Immature Granulocytes % 1.9 % (0-4); Lymphocytes # 0.5 K/mcL (0.6-4.6); Mean Corpuscular HGB Conc 34.3 g/dL (31.6-35.5); Mean Corpuscular Volume 90.1 fL (83.0-100.0); Mean Platelet Volume 10.5 fL (9.4-12.4); Monocytes # 0.7 K/mcL (0.0-1.3); Monocytes % 6.7 %; Neutrophils # 8.3 K/mcL (1.6-8.9); Platelet Count 205 K/mcL (140-400); Red Blood Count 3.65 M/mcL (3.82-4.97); Red Cell Distribution Width 14.8 % (11.5-14.5); Segmented Neutrophils % 83.5 %
[2017-02-22] MEDS: Piperacillin/Tazobactam 3.375 GM in D5% in Water (Mini-Bag+) 100 ML IVPB SCH ×2 (04:43→15:31)
[2017-02-22] MEDS: FentaNYL (PF) 3,000 MCG in 0.9 % Sodium Chloride 240 ML IVC SCH (04:44)
[2017-02-22 04:48] LABS: Ionized Calcium 1.37 mmol/L (1.15-1.35)
[2017-02-22 04:54] LABS: Calcium 9.2 mg/dL (8.6-10.8); Magnesium 2.1 mg/dL (1.6-2.6); Phosphorous 3.8 mg/dL (2.3-4.7); Potassium 4.3 mEq/L (3.5-4.5)
[2017-02-22 05:08] LABS: ABG Base Excess -7.5 mEq/L (-2.0 to 3.0); ABG HCO3 18.1 mEQ/L (21-27); ABG Oxygen Saturation 98 % (95-98); ABG PCO2 36 mmHg (35-45); ABG PH 7.31 pH Units (7.32-7.45); ABG PO2 122 mmHg (85-104); ABG TCO2 19.2 mEq/L (20-26)
[2017-02-22 05:09] LABS: Blood Gas FiO2 30 %; Blood Gas PEEP 5 cm H2O; Blood Gas Respiration Rate 12; Blood Gas VT 400 cc
[2017-02-22] MEDS: *HR* Heparin 5,000 UNIT/ML VIAL SQ SCH ×2 (05:39→18:26)
--- NOTE | 2017-02-22 06:37 | Pulmonology Progress Note ---
Date of Encounter: 02/22/17 Time of Encounter: 06:36 Assessment and Plan (1) Acute postoperative respiratory failure Current Visit: Yes Status: Acute remains intubated s/p operation 02/17 currently on minimal vent settings tolerating CPAP trial plan to extubate to nasal cannula - extubated 02/22 (2) Gastric necrosis Current Visit: Yes Status: Acute POD #5 s/p gastric sleeve resection 02/17/17 continue post operative care midline incision closed with josh, no surrounding erythema, induration or drainage PEG tube placement 02/21/17 continue TPN discussed with surgery, HOLD trickle feeds for possibly tomorrow continue monitoring I/Os (3) Recent major surgery Current Visit: Yes Status: Acute as stated above (4) Small bowel obstruction Current Visit: Yes Status: Acute high-grade small bowel obstruction visualized on CT abdomen and pelvis 02/15 75% gastric necrosis s/p gastric sleeve 02/17 (5) Postoperative anemia Current Visit: Yes Status: Acute transfused 2 units pRBCs 02/20/17 no signs of active bleeding at this time hemoglobin increased appropriately 11.3 abdomen remains soft and nondistended continue to monitor H/H (6) Hyponatremia Current Visit: Yes Status: Acute likely from a combination of dilution from fluids and volume losses from gastric output sodium continues to improve 133 continue TPN continue to monitor closely (7) Shock Current Visit: Yes Status: Resolved resolved off pressors shock most likely distributive from sepsis or pancreatitis MAP >60 (8) Sepsis Current Visit: Yes Status: Acute resolved source likely from gastric necrosis 02/15 blood cultures x2 NGTD 02/16 urine culture NGTD remains afebrile leukocytosis resolved lactic acidosis resolved Day 7 of Zosyn, discussed with surgery ok to discontinue Qualifiers: Sepsis type: sepsis due to unspecified organism Qualified Code(s): A41.9 - Sepsis, unspecified organism (9) Acute kidney injury Current Visit: Yes Status: Acute improving renal function likely from pre-renal secondary from shock/fluid losses/surgery Creatinine 3.00 (3.48) continues to make good urine output, 700 cc today, 1925 cc UOP 02/21 strict I/Os AVOID nephrotoxins (10) Metabolic acidosis Current Visit: Yes Status: Acute non-anion gap metabolic acidosis from IV fluids and gastric losses continue to monitor (11) Elevated CPK Current Visit: Yes Status: Resolved resolving CPK improved to 633 likely from nectrotic gastrum (12) Mental retardation Current Visit: Yes Status: Acute (13) DVT prophylaxis Current Visit: Yes Status: Acute Heparin and EPCDs in place Neuro/ Sedation: extubated, awake and in no acute distress, MRDD HEENT: No issues Cardio: shock likely distributive from sepsis and volume loss, off phenylephrine 02/19, MAP >60 Pulm: extubated 02/22 to nasal cannula GI: POD 53 s/p laparotomy with gastric sleeve procedure 02/17/2017. PEG tube placed, continue TPN and hold on trickle feeds, hypoactive bowel sounds heard. Renal: DEBORAH improving in the setting of sepsis/shock/post-operative. Urine output appropriate. Avoid nephrotoxins and adjust medications as needed Acid base/FEN: NAG Metabolic acidosis likely from a combination of IV fluids and losses from NG. Also likely had increase in ADH from stress/ surgery. continue TPN Heme: 2 units pRBCs transfused, appropriate rise in hemoglobin, continue to monitor ID: currently she does not meet sepsis criteria, source is like intra-abdominal from her necrotic stomach. Completed 7 days of Zosyn, discontinue today. Remains afebrile and has normal white count. Urine and blood culture showed no growth to date. Prophylaxis: EPCDs. Heparin, Protonix, routine skin care. Lines: right PICC, PEG tube, stern Subjective Principal diagnosis: SBO Interval history: No major events overnight. No apneic episodes. Patient seen and examined at bedside. Patient is currently tolerating CPAP trial. She remains intubated and off sedation. She is awake and appears in no acute distress. Denies any pain when asked. Extubated to nasal cannula at 0940 with respiratory at bedside. Objective PUL Vital signs: Last Vital Signs Temp 97.6 F 02/22/17 04:00 Pulse 69 02/22/17 05:45 Resp 16 02/22/17 05:45 BP 94/66 02/22/17 05:45 Pulse Ox 99 02/22/17 05:45 General appearance: no acute distress, alert Eyes: nonicteric, other (PERRL) ENT: other (endotracheal tube in place) Neck: supple Effort: other (mechanically ventilated, currently on CPAP, good symmetric chest rise) Auscultation: bilateral: other (coarse) Cardiovascular: regular rate and rhythm Gastrointestinal: hypoactive bowel sounds, soft, non-tender, non-distended, other (midlie incision/staple line is clean dry and intact without drainage, PEG tube in place) Integumentary: normal Extremities: no edema, no clubbing Musculoskeletal: no deformities, ROM normal non-focal exam (moves all 4 extremities), unable to assess due to mental status (medical condition) right PICC without signs of infection Ventilator Settings Ventilator Settings: Ventilator Settings, Last 8 Hours Ventilator Mode A/C Ventilator Mode A/C Ventilator Mode A/C Ventilator Mode A/C Ventilator Mode A/C Ventilator Mode A/C Ventilator Mode A/C Ventilator Tidal Volume 400 Setting Ventilator Tidal Volume 400 Setting Ventilator Tidal Volume 400 Setting Ventilator Tidal Volume 400 Setting Ventilator Tidal Volume 400 Setting Ventilator Tidal Volume 400 Setting Ventilator Tidal Volume 400 Setting Ventilator Respiratory Rate 12 Setting Ventilator Respiratory Rate 12 Setting Ventilator Respiratory Rate 12 Setting Ventilator Respiratory Rate 12 Setting Ventilator Respiratory Rate 12 Setting Ventilator Respiratory Rate 12 Setting Ventilator Respiratory Rate 12 Setting Actual Respiratory Rate 12 Actual Respiratory Rate 12 Actual Respiratory Rate 15 Actual Respiratory Rate 12 Actual Respiratory Rate 13 Actual Respiratory Rate 12 Positive End Expiratory 5 Pressure Positive End Expiratory 5 Pressure Positive End Expiratory 5 Pressure Positive End Expiratory 5 Pressure Positive End Expiratory 5 Pressure Positive End Expiratory 5 Pressure Peak Inspiratory Airway 18 Pressure Peak Inspiratory Airway 18 Pressure Peak Inspiratory Airway 21 Pressure Peak Inspiratory Airway 19 Pressure Peak Inspiratory Airway 20 Pressure Peak Inspiratory Airway 19 Pressure Results - Laboratory Findings CBC and BMP: 02/22/17 04:23 02/22/17 04:23 ABG ABG pH 7.31 pH Units (7.32-7.45) L 02/22/17 04:51 ABG pCO2 36 mmHg (35-45) 02/22/17 04:51 ABG pO2 122 mmHg (85-104) H 02/22/17 04:51 ABG O2 Saturation 98 % (95-98) 02/22/17 04:51 PT/INR, D-dimer PT 13.1 Seconds (9.4-12.1) H 02/18/17 10:30 Abnormal lab findings: Abnormal lab results RBC 3.65 M/mcL (3.82-4.97) L 02/22/17 04:23 Hgb 11.3 g/dL (11.5-15.4) L 02/22/17 04:23 Hct 32.9 % (35.3-44.9) L 02/22/17 04:23 RDW 14.8 % (11.5-14.5) H 02/22/17 04:23 Lymphocytes # 0.5 K/mcL (0.6-4.6) L 02/22/17 04:23 Immature Plt Fraction 8.8 % (1.1-6.1) H 02/16/17 09:27 PT 13.1 Seconds (9.4-12.1) H 02/18/17 10:30 ABG pH 7.31 pH Units (7.32-7.45) L 02/22/17 04:51 ABG pO2 122 mmHg (85-104) H 02/22/17 04:51 ABG HCO3 18.1 mEQ/L (21-27) L 02/22/17 04:51 ABG Total CO2 19.2 mEq/L (20-26) L 02/22/17 04:51 ABG Base Excess -7.5 mEq/L (-2.0 to 3.0) L 02/22/17 04:51 VBG pH 7.28 pH Units (7.32-7.42) L 02/18/17 14:20 VBG pCO2 38 mmHg (41-51) L 02/18/17 14:20 VBG pO2 70 mmHg (25-40) H 02/18/17 14:20 VBG HCO3 17.9 mEq/L (21-27) L 02/18/17 14:20 Sodium 133 mEq/L (136-145) L 02/22/17 04:23 BUN 50 mg/dL (7-20) H 02/22/17 04:23 Creatinine 3.00 mg/dL (0.57-1.11) H 02/22/17 04:23 Est GFR ( Amer) 19 (> 60) L 02/22/17 04:23 Est GFR (Non-Af Amer) 16 (> 60) L 02/22/17 04:23 Glucose 127 mg/dL (70-99) H 02/22/17 04:23 POC Glucose 115 (58-89) H 02/22/17 05:42 Ionized Calcium 1.37 mmol/L (1.15-1.35) H 02/22/17 04:23 AST 118 Units/L (5-34) H 02/17/17 03:05 Alkaline Phosphatase 37 Units/L (38-126) L 02/17/17 03:05 Lactate Dehydrogenase 448 Units/L (159-327) H 02/16/17 09:27 Creatine Kinase 633 Units/L (29-168) H 02/18/17 04:20 Serum Total Protein 4.5 g/dL (6.0-8.3) L 02/17/17 03:05 Albumin 1.9 g/dL (3.5-5.0) L 02/17/17 03:05 Albumin/Globulin Ratio 0.7 (1.1-2.2) L 02/17/17 03:05 Prealbumin 7.0 mg/dL (16.0-38.0) L 02/20/17 15:30 Lipase 184 Units/L (8-78) H 02/16/17 09:27 Urine Clarity Cloudy (Clear) A 02/16/17 15:50 Urine Protein 30 mg/dL (Neg-Trace) H 02/16/17 15:50 Urine Blood Large (Negative) H 02/16/17 15:50 Urine Microscopic RBC 50-100 per hpf (0-3) H 02/16/17 15:50 Urine Microscopic WBC 5-15 per hpf (0-3) H 02/16/17 15:50 Ur Squamous Epith Cells Many per lpf (None-Few) H 02/16/17 15:50 Waxy Casts Few per lpf (None Seen) H 02/16/17 15:50 Ur Culture Indicated? YES (NO) A 02/16/17 15:50 - Clinical Findings Intake & Output: Intake & Output 02/21/17 02/21/17 02/22/17 15:59 23:59 07:59 Intake Total 1745 / 1745 150 / 150 300 / 300 Output Total 750 / 750 425 / 425 700 / 700 Balance 995 / 995 -275 / -275 -400 / -400 Weight 61.7 kg 60.419 kg - VTE Documentation of Mechanical Device: Intermittent pneumatic compression device Consult Discharge Plan - Plan Referrals: NO,PCP [Primary Care Provider] -
--- NOTE | 2017-02-22 06:44 | General Surgery Progress Note ---
Date of Encounter: 02/22/17 Time of Encounter: 06:43 - Assessment and Plan (1) Small bowel obstruction Current Visit: Yes Status: Acute POD#5 exploratory laparotomy with sleeve resection of the stomach due to gastric necrosis with Dr. 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 Subtotal gastrectomy with staple to the end of the esophagus for modified sleeve resection to ensure gastrointestinal continuity. Staple line demonstrated some visible black necrotic mucosa however seromuscular layer appeared viable. EGD with PEG tube placement 02/20/[address] Barnes. PEG site clean, dry. 285cc gastric drainage. Abdomen soft, diffusely tender, bowel sounds very hypoactive. Patient BP remains 100's systolic, remains off of pressor support. Bowel sounds are very hypoactive. We will continue bowel rest for now, allow surgical line to heal with PEG tube as a vent. Reassess advancing to trickle feeds once gastric drainage has slowed and bowel sounds have increased. Plan: -Keep NPO -Continue TPN -Continue pain control and IV hydration -AM labs (2) Gastric necrosis Current Visit: Yes Status: Acute (3) Acute pancreatitis Current Visit: Yes Status: Acute Qualifiers: Pancreatitis type: unspecified pancreatitis type Acute pancreatitis complication: unspecified Qualified Code(s): K85.90 - Acute pancreatitis without necrosis or infection, unspecified (4) Mental retardation Current Visit: Yes Status: Acute Subjective Narrative: Patient was seen and examined. She remaines sedated and intubated. She was stable overnight, no acute problems. She remains off pressor support and is maintaining blood pressures remain around 100 systolic. She responds to verbal and painful stimuli. Objective Vital Signs - Last 8 Hours Temp Pulse Resp BP Pulse Ox 02/22/17 05:45 69 16 94/66 99 02/22/17 05:32 12 99 02/22/17 05:00 64 14 101/69 99 02/22/17 04:17 12 97 02/22/17 04:00 97.6 F 62 14 119/75 98 02/22/17 03:00 55 12 92/65 97 02/22/17 02:00 58 13 102/65 98 02/22/17 01:55 12 97 02/22/17 01:00 60 13 98/65 97 02/22/17 00:07 97.7 F 02/22/17 00:00 97.7 F 62 13 107/68 100 02/21/17 23:37 12 98 02/21/17 23:00 70 17 139/91 99 Intake and Output 02/21/17 02/21/17 02/22/17 15:59 23:59 07:59 Intake Total 1745 / 1745 150 / 150 300 / 300 Output Total 750 / 750 425 / 425 700 / 700 Balance 995 / 995 -275 / -275 -400 / -400 Intake: IV Fluids 1745 / 1745 150 / 150 300 / 300 FentaNYL (PF) 3,000 MCG 235 / 235 50 / 50 50 / 50 In 0.9 % Sodium Chloride 240 ML @ 50 MCG/HR 5 mls/ hr IVC CONT [facility] Rx#: [id number] Clinimix E 5%-15% 1410 / 1410 SOLUTION 2,000 ML @ 40 mls/hr IVC .Q24H [facility] with M.v.i. Adult 10 ml Rx#: [id number] Intralipid 20% 250 ML @ 250 / 250 21 mls/hr IVPB DAILY@1700 [facility] Rx#:[id number] Zosyn 3.375 GM In 100 / 100 100 / 100 Dextrose 5% (Minibag+) 100 ML 100 ML @ 25 mls/hr IVPB Q12H [facility] Rx#: [id number] Output: Catheter 600 / 600 325 / 325 700 / 700 Gastric Drainage 150 / 150 100 / 100 0 / 0 Other: Weight 61.7 kg 60.419 kg Blood Glucose* 113 120 137 Patient Weight 02/22/17 23:59 Weight 60.419 kg - General physical appearance no distress, moderate pain, chronically ill, other (Sedated and intubated) - Eyes PERRL - ENT atraumatic, normocephalic - Neck Neck exam: trachea midline - Respiratory clear to auscultation - Cardiovascular Cardiovascular exam: Present: RRR, no murmurs/rubs/gallops - Abdomen Abdomen: Present: bowel sounds present (Very hypoactive), soft, tender. Absent : distended Abdominal Tenderness: diffusely - Incision Incision: Present: clean and dry - Integumentary no rash, no growths, no abnormal pigmentation - Neurologic other (Sedated) - Psychiatric other (sedated) - Labs 02/22/17 04:23 02/22/17 04:23 Diabetes panel 02/22/17 Range/Units 04:23 Sodium 133 L (136-145) mEq/L Potassium 4.3 (3.5-4.5) mEq/L Chloride 108 (98-109) mEq/L Carbon Dioxide 19 (19-29) mEq/L BUN 50 H (7-20) mg/dL Creatinine 3.00 H (0.57-1.11) mg/dL Glucose 127 H (70-99) mg/dL Calcium 9.2 (8.6-10.8) mg/dL Calcium panel 02/22/17 Range/Units 04:23 Calcium 9.2 (8.6-10.8) mg/dL Phosphorus 3.8 (2.3-4.7) mg/dL Pituitary panel 02/22/17 Range/Units 04:23 Sodium 133 L (136-145) mEq/L Potassium 4.3 (3.5-4.5) mEq/L Chloride 108 (98-109) mEq/L Carbon Dioxide 19 (19-29) mEq/L BUN 50 H (7-20) mg/dL Creatinine 3.00 H (0.57-1.11) mg/dL Glucose 127 H (70-99) mg/dL Calcium 9.2 (8.6-10.8) mg/dL Adrenal panel 02/22/17 Range/Units 04:23 Sodium 133 L (136-145) mEq/L Potassium 4.3 (3.5-4.5) mEq/L Chloride 108 (98-109) mEq/L Carbon Dioxide 19 (19-29) mEq/L BUN 50 H (7-20) mg/dL Creatinine 3.00 H (0.57-1.11) mg/dL Glucose 127 H (70-99) mg/dL Calcium 9.2 (8.6-10.8) mg/dL - VTE Documentation of Mechanical Device: Intermittent pneumatic compression device Consult Discharge Plan - Plan Referrals: NO,PCP [Primary Care Provider] - - Attending Attestation I examined this patient and my medical decision-making was reviewed with the CASE PICKER/PA/Advanced Practice Nurse/Resident Physician. I agree with the documented findings, disposition and treatment plan as described except to the extent set forth below. The patient is seen and evaluated on morning rounds with the resident's. She is stable. She has a few bowel sounds. She will be weaned off the ventilator today. We will watch her closely for any signs of progression of gastric necrosis. Continue with PEG tube to a Vela catheter bag for vent Dane Barnes MD FACS
[2017-02-22] MEDS: Pantoprazole 40 MG VIAL IVPB SCH (08:24)
[2017-02-22] MEDS: Chlorhexidine Rinse 15 ML MOUTHWASH MM SCH ×2 (08:24→20:32)
--- NOTE | 2017-02-22 12:35 | Event Note ---
Date of Encounter: 02/22/17 Time of Encounter: 11:00 Patient extubated this AM and tolerating NC oxygen. POD#5 exp lab and gastric sleeve resection. Patient receiving TPN, abdominal midline wound intact with josh and PEG in place. Vitals stable, labs slowly improving. Nutrition to start feedings. Palliative care team will sign-off for now. Please re-consult if needed.
[2017-02-22] MEDS ORDERED: Clinimix E 5%-15% SOLUTION 2,000 ML with MVI, adult with vitamin K 10 ML IVC SCH (17:00)
[2017-02-22] MEDS: *HR* HYDROmorphone (PF) 1 MG/ML SYRINGE IVP PRN (19:23)
[2017-02-23] MEDS: Insulin LISPRO 300 UNITS/3 ML VIAL SQ SCH ×3 (00:47→18:21)
[2017-02-23 03:49] LABS: Basophils % 0.2 %; Eosinophils # 0.2 K/mcL (0.0-0.6); Eosinophils % 1.9 %; Hematocrit 33.1 % (35.3-44.9); Hemoglobin 11.6 g/dL (11.5-15.4); Immature Granulocytes % 2.5 % (0-4); Lymphocytes # 0.5 K/mcL (0.6-4.6); Lymphocytes % 4.9 %; Mean Corpuscular Hemoglobin 31.1 pg (28.0-33.3); Mean Corpuscular Volume 88.7 fL (83.0-100.0); Mean Platelet Volume 10.4 fL (9.4-12.4); Monocytes # 0.9 K/mcL (0.0-1.3); Monocytes % 8.1 %; Neutrophils # 9.1 K/mcL (1.6-8.9); Nucleated Red Blood Cells 0.2 /100 WBC (0); Platelet Count 283 K/mcL (140-400); Red Blood Count 3.73 M/mcL (3.82-4.97); Red Cell Distribution Width 14.7 % (11.5-14.5); Segmented Neutrophils % 82.4 %
[2017-02-23 03:59] LABS: Calcium 9.2 mg/dL (8.6-10.8); Magnesium 1.7 mg/dL (1.6-2.6); Phosphorous 3.2 mg/dL (2.3-4.7)
[2017-02-23] MEDS: Magnesium Sulfate 2 GM in D5% in Water 100 ML IVPB PRN (04:12)
[2017-02-23] MEDS: *HR* Heparin 5,000 UNIT/ML VIAL SQ SCH ×2 (06:08→18:25)
--- NOTE | 2017-02-23 06:30 | Pulmonology Progress Note ---
Date of Encounter: 02/23/17 Time of Encounter: 06:30 Assessment and Plan (1) Acute postoperative respiratory failure Current Visit: Yes Status: Resolved extubated 02/23 100% on room air lungs are clear to auscultation stable to transfer to medical/surgical floor bed request placed for 3A44 (2) Gastric necrosis Current Visit: Yes Status: Acute POD #6 s/p gastric sleeve resection 02/17/17 continue post operative care midline incision closed with josh, no surrounding erythema, induration or drainage PEG tube placement 02/21/[address] Barnes, may begin trickle feeds 10 cc/hr and strict orders to not advance - dietitian consulted - residuals q4 hr, hold if >50cc continue monitoring I/Os gastric output 100 02/23 - 235 output on 02/22 remains afebrile (3) Recent major surgery Current Visit: Yes Status: Acute as stated above (4) Small bowel obstruction Current Visit: Yes Status: Acute high-grade small bowel obstruction visualized on CT abdomen and pelvis 02/15 75% gastric necrosis s/p gastric sleeve 02/17 (5) Acute kidney injury Current Visit: Yes Status: Acute improving renal function likely from pre-renal secondary from shock/fluid losses/surgery Creatinine 2.6 (3.00) continues to make good urine output strict I/Os AVOID nephrotoxins (6) Mental retardation Current Visit: Yes Status: Acute (7) Hyponatremia Current Visit: Yes Status: Resolved resolved likely from a combination of dilution from fluids and volume losses from gastric output sodium continues to improve 134 will continue with trickle feeds continue to monitor closely (8) Shock Current Visit: Yes Status: Resolved resolved off pressors shock most likely distributive from sepsis or pancreatitis MAP >60 (9) Sepsis Current Visit: Yes Status: Resolved resolved source likely from gastric necrosis 02/15 blood cultures x2 NGTD 02/16 urine culture NGTD remains afebrile leukocytosis resolved lactic acidosis resolved Day 7 of Zosyn, discussed with surgery ok to discontinue Qualifiers: Sepsis type: sepsis due to unspecified organism Qualified Code(s): A41.9 - Sepsis, unspecified organism (10) Metabolic acidosis Current Visit: Yes Status: Resolved non-anion gap metabolic acidosis from IV fluids and gastric losses continue to monitor (11) Elevated CPK Current Visit: Yes Status: Resolved resolved CPK improved to 633 likely from nectrotic gastrum (12) DVT prophylaxis Current Visit: Yes Status: Acute Heparin and EPCDs in place Neuro/ Sedation: extubated, awake and in no acute distress, MRDD HEENT: No issues Cardio: shock resolved likely distributive from sepsis and volume loss, vitals remain stable Pulm: extubated 02/22 to nasal cannula GI: POD #6 s/p laparotomy with gastric sleeve procedure 02/17/2017. PEG tube placed 02/20, will begin trickle feeds 100cc/hr, hypoactive bowel sounds heard. Renal: DEBORAH improving in the setting of sepsis/shock/post-operative. Urine output appropriate. Avoid nephrotoxins and adjust medications as needed Acid base/FEN: NAG Metabolic acidosis likely from a combination of IV fluids and losses from NG. Also likely had increase in ADH from stress/ surgery. continue TPN Heme: 2 units pRBCs transfused, appropriate rise in hemoglobin, continue to monitor ID: currently she does not meet sepsis criteria, source is like intra-abdominal from her necrotic stomach. Completed 7 days of Zosyn, discontinue today. Remains afebrile and has normal white count. Urine and blood culture showed no growth to date. Prophylaxis: EPCDs. Heparin, Protonix, routine skin care. Lines: right PICC, PEG tube, stern Subjective Principal diagnosis: SBO Interval history: No major events overnight. Patient seen and examined at bedside. Appears in no acute distress. She denies any chest pain, shortness of breath, abdominal pain , headache or nausea. She is alert and oriented. Objective PUL Vital signs: Last Vital Signs Temp 98.3 F 02/23/17 03:55 Pulse 78 02/23/17 06:00 Resp 29 02/23/17 06:00 BP 144/91 02/23/17 06:00 Pulse Ox 100 02/23/17 06:00 General appearance: no acute distress, alert Eyes: nonicteric, other (PERRL) ENT: oropharynx moist, other (poor dentition) Neck: supple Effort: normal Auscultation: bilateral: clear Cardiovascular: regular rate and rhythm Gastrointestinal: hypoactive bowel sounds, soft, non-tender, non-distended, other (midline incision/staple line is clean, dry, and intact without drainage; PEG tube remains in place without surrounding erythema or induration) Integumentary: normal Extremities: no clubbing, edema (+1 pitting edema) Musculoskeletal: no deformities, ROM normal normal mental status (appears at her baseline), non-focal exam, pupils equal and round, other (alert and oriented to person and place with assistance) Results - Laboratory Findings CBC and BMP: 02/23/17 03:36 02/23/17 03:36 ABG ABG pH 7.31 pH Units (7.32-7.45) L 02/22/17 04:51 ABG pCO2 36 mmHg (35-45) 02/22/17 04:51 ABG pO2 122 mmHg (85-104) H 02/22/17 04:51 ABG O2 Saturation 98 % (95-98) 02/22/17 04:51 PT/INR, D-dimer PT 13.1 Seconds (9.4-12.1) H 02/18/17 10:30 Abnormal lab findings: Abnormal lab results RBC 3.73 M/mcL (3.82-4.97) L 02/23/17 03:36 Hct 33.1 % (35.3-44.9) L 02/23/17 03:36 RDW 14.7 % (11.5-14.5) H 02/23/17 03:36 Neutrophils # 9.1 K/mcL (1.6-8.9) H 02/23/17 03:36 Lymphocytes # 0.5 K/mcL (0.6-4.6) L 02/23/17 03:36 Nucleated RBCs/100 WBC 0.2 /100 WBC (0) H 02/23/17 03:36 Immature Plt Fraction 8.8 % (1.1-6.1) H 02/16/17 09:27 PT 13.1 Seconds (9.4-12.1) H 02/18/17 10:30 ABG pH 7.31 pH Units (7.32-7.45) L 02/22/17 04:51 ABG pO2 122 mmHg (85-104) H 02/22/17 04:51 ABG HCO3 18.1 mEQ/L (21-27) L 02/22/17 04:51 ABG Total CO2 19.2 mEq/L (20-26) L 02/22/17 04:51 ABG Base Excess -7.5 mEq/L (-2.0 to 3.0) L 02/22/17 04:51 VBG pH 7.28 pH Units (7.32-7.42) L 02/18/17 14:20 VBG pCO2 38 mmHg (41-51) L 02/18/17 14:20 VBG pO2 70 mmHg (25-40) H 02/18/17 14:20 VBG HCO3 17.9 mEq/L (21-27) L 02/18/17 14:20 Sodium 134 mEq/L (136-145) L 02/23/17 03:36 BUN 57 mg/dL (7-20) H 02/23/17 03:36 Creatinine 2.60 mg/dL (0.57-1.11) H 02/23/17 03:36 Est GFR ( Amer) 23 (> 60) L 02/23/17 03:36 Est GFR (Non-Af Amer) 19 (> 60) L 02/23/17 03:36 Glucose 114 mg/dL (70-99) H 02/23/17 03:36 POC Glucose 121 (58-89) H 02/23/17 06:07 Ionized Calcium 1.37 mmol/L (1.15-1.35) H 02/22/17 04:23 AST 118 Units/L (5-34) H 02/17/17 03:05 Alkaline Phosphatase 37 Units/L (38-126) L 02/17/17 03:05 Lactate Dehydrogenase 448 Units/L (159-327) H 02/16/17 09:27 Creatine Kinase 633 Units/L (29-168) H 02/18/17 04:20 Serum Total Protein 4.5 g/dL (6.0-8.3) L 02/17/17 03:05 Albumin 1.9 g/dL (3.5-5.0) L 02/17/17 03:05 Albumin/Globulin Ratio 0.7 (1.1-2.2) L 02/17/17 03:05 Prealbumin 7.0 mg/dL (16.0-38.0) L 02/20/17 15:30 Lipase 184 Units/L (8-78) H 02/16/17 09:27 Urine Clarity Cloudy (Clear) A 02/16/17 15:50 Urine Protein 30 mg/dL (Neg-Trace) H 02/16/17 15:50 Urine Blood Large (Negative) H 02/16/17 15:50 Urine Microscopic RBC 50-100 per hpf (0-3) H 02/16/17 15:50 Urine Microscopic WBC 5-15 per hpf (0-3) H 02/16/17 15:50 Ur Squamous Epith Cells Many per lpf (None-Few) H 02/16/17 15:50 Waxy Casts Few per lpf (None Seen) H 02/16/17 15:50 Ur Culture Indicated? YES (NO) A 02/16/17 15:50 - Clinical Findings Intake & Output: Intake & Output 02/22/17 02/22/17 02/23/17 15:59 23:59 07:59 Intake Total 200 / 200 354 / 354 Output Total 850 / 850 385 / 385 725 / 725 Balance -650 / -650 -385 / -385 -371 / -371 Weight 60.6 kg 61.2 kg - VTE Documentation of Mechanical Device: Intermittent pneumatic compression device Consult Discharge Plan - Plan Referrals: NO,PCP [Primary Care Provider] -
--- NOTE | 2017-02-23 07:30 | General Surgery Progress Note ---
Date of Encounter: 02/23/17 Time of Encounter: 07:00 - Assessment and Plan (1) Small bowel obstruction Current Visit: Yes Status: Acute POD #6 for exploratory laparotomy with sleeve resection of the stomach due to gastric necrosis; with Dr. Barnes. Complications during surgery include two episodes of hypotension that responded to Hammad-Synephrine drip. 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 Subtotal gastrectomy with staple to the end of the esophagus for modified sleeve resection to ensure gastrointestinal continuity. Staple line demonstrated some visible black necrotic mucosa however seromuscular layer appeared viable. EGD with PEG tube placement 02/20/[address] Barnes. PEG site clean, dry. 100ml gastric drainage. Abdomen soft, diffusely tender, bowel sounds hypoactive. Patient BP remains 100's systolic, remains off of pressor support. Bowel sounds are very hypoactive. We will continue to allow surgical line to heal with PEG tube as a vent. Advance to trickle feeds now that gastric drainage has slowed and bowel sounds have increased. Patient was extubated overnight She remained stable. Today she is verbalizing that she is in pain. Bowel sounds positive. PEG tube drainage has decreased. Plan: Supportive care and pain control management per ICU team -Maintain TPN -Trickle feedings at 10 mL an hour. Do not advance. Dietitian to will choose formula. Residuals every 4 hours. Hold if over 50 mL. -Daily dressing change (2) Gastric necrosis Current Visit: Yes Status: Acute (3) Mental retardation Current Visit: Yes Status: Acute (4) DVT prophylaxis Current Visit: Yes Status: Acute The assessment and plan as outlined above was discussed with the patient and/or family members who expressed understanding and agreement. All questions were answered. Continue EPCDs to bilateral lower extremities for DVT prophylaxis Subjective Narrative: Patient was seen and examined. Overnight she was extubated and remained stable with no acute problems. She remains off pressor support maintaining blood pressures around 100 systolic. She is communicative and responding to painful and verbal stimuli. Objective Vital Signs - Last 8 Hours Temp Pulse Resp BP Pulse Ox 02/23/17 06:00 78 29 144/91 100 02/23/17 05:00 73 25 128/96 98 02/23/17 04:00 77 02/23/17 03:55 98.3 F 77 24 150/96 100 02/23/17 03:00 69 18 137/101 99 02/23/17 02:00 68 20 147/88 100 02/23/17 01:20 98.4 F 02/23/17 01:00 68 16 150/91 97 02/23/17 00:00 98.4 F 75 33 148/94 97 Intake and Output 02/22/17 02/22/17 02/23/17 15:59 23:59 07:59 Intake Total 200 / 200 354 / 354 Output Total 850 / 850 385 / 385 725 / 725 Balance -650 / -650 -385 / -385 -371 / -371 Intake: IV Fluids 200 / 200 354 / 354 FentaNYL (PF) 3,000 MCG 100 / 100 In 0.9 % Sodium Chloride 240 ML @ 50 MCG/HR 5 mls/ hr IVC CONT [facility] Rx#: [id number] Intralipid 20% 250 ML @ 250 / 250 21 mls/hr IVPB DAILY@1700 [facility] Rx#:[id number] Magnesium Sulfate 2 GM In 104 / 104 Dextrose 5% 100 ML @ 50 mls/hr IVPB Q6H [facility] Rx#: [id number] Zosyn 3.375 GM In 100 / 100 Dextrose 5% (Minibag+) 100 ML 100 ML @ 25 mls/hr IVPB Q12H [facility] Rx#: [id number] Output: Catheter 650 / 650 350 / 350 625 / 625 Gastric Drainage 200 / 200 35 / 35 100 / 100 Other: Weight 60.6 kg 61.2 kg Blood Glucose* 133 112 125 Patient Weight 02/23/17 23:59 Weight 61.2 kg - General physical appearance moderate pain, chronically ill - Eyes PERRL, normal ocular movement - ENT normal nares, normal mucosa, atraumatic, CN 2-12 grossly intact - Neck Neck exam: trachea midline, no venous distension - Respiratory normal expansion, normal respiratory effort, clear to auscultation - Cardiovascular Cardiovascular exam: Present: RRR, no murmurs/rubs/gallops. Absent: JVD - Abdomen Abdomen: Present: bowel sounds present, soft, tender Abdominal Tenderness: diffusely - Incision Incision: Present: clean and dry, intact - Integumentary no rash, other (Warm and dry) - Neurologic CN 2-12 grossly intact, other (MRDD) - Psychiatric other (MRDD) - Labs 02/23/17 03:36 02/23/17 03:36 Diabetes panel 02/23/17 Range/Units 03:36 Sodium 134 L (136-145) mEq/L Potassium 4.0 (3.5-4.5) mEq/L Chloride 108 (98-109) mEq/L Carbon Dioxide 19 (19-29) mEq/L BUN 57 H (7-20) mg/dL Creatinine 2.60 H (0.57-1.11) mg/dL Glucose 114 H (70-99) mg/dL Calcium 9.2 (8.6-10.8) mg/dL Calcium panel 02/23/17 Range/Units 03:36 Calcium 9.2 (8.6-10.8) mg/dL Phosphorus 3.2 (2.3-4.7) mg/dL Pituitary panel 02/23/17 Range/Units 03:36 Sodium 134 L (136-145) mEq/L Potassium 4.0 (3.5-4.5) mEq/L Chloride 108 (98-109) mEq/L Carbon Dioxide 19 (19-29) mEq/L BUN 57 H (7-20) mg/dL Creatinine 2.60 H (0.57-1.11) mg/dL Glucose 114 H (70-99) mg/dL Calcium 9.2 (8.6-10.8) mg/dL Adrenal panel 02/23/17 Range/Units 03:36 Sodium 134 L (136-145) mEq/L Potassium 4.0 (3.5-4.5) mEq/L Chloride 108 (98-109) mEq/L Carbon Dioxide 19 (19-29) mEq/L BUN 57 H (7-20) mg/dL Creatinine 2.60 H (0.57-1.11) mg/dL Glucose 114 H (70-99) mg/dL Calcium 9.2 (8.6-10.8) mg/dL - VTE Documentation of Mechanical Device: Intermittent pneumatic compression device Consult Discharge Plan - Plan Referrals: NO,PCP [Primary Care Provider] - - Attending Attestation I examined this patient and my medical decision-making was reviewed with the PLAYER DEVELOPMENT EXECUTIVE/PA/Advanced Practice Nurse/Resident Physician. I agree with the documented findings, disposition and treatment plan as described except to the extent set forth below. The patient was seen and evaluated on morning rounds with the resident. The patient is doing very well off the ventilator. She has good bowel sounds. We will start low volume feeds at 10 mL an hour. I will watch her abdominal examination very closely for any signs of leak at the gastric staple line. She is doing remarkably well Dane Barnes MD FACS
[2017-02-23] MEDS: Pantoprazole 40 MG VIAL IVPB SCH (07:55)
[2017-02-23] MEDS: Chlorhexidine Rinse 15 ML MOUTHWASH MM SCH ×2 (07:55→23:27)
[2017-02-23] MEDS ORDERED: Dextrose Gel 15 GM PO PRN ×2 (12:37)
[2017-02-23] MEDS ORDERED: Ondansetron 4 MG/2 ML VIAL IVP PRN (12:37)
[2017-02-23] MEDS ORDERED: *HR* Dextrose 50 % in Water (Syg) 50 ML SYRINGE IVP PRN (12:37)
[2017-02-23] MEDS ORDERED: Clinimix E 5%-15% SOLUTION 2,000 ML with MVI, adult with vitamin K 10 ML IVC SCH ×2 (12:37→17:00)
[2017-02-23] MEDS ORDERED: D5% in Water 1,000 ML IVC PRN (12:37)
[2017-02-23] MEDS ORDERED: Naloxone 0.4 MG/ML INJ IVP PRN (12:37)
[2017-02-23] MEDS ORDERED: Clinimix E 5%-15% SOLUTION 2,000 ML with MVI, adult with vitamin K 10 ML IVC ONE (17:00)
[2017-02-24] MEDS: Insulin LISPRO 300 UNITS/3 ML VIAL SQ SCH ×4 (00:17→18:15)
[2017-02-24 04:51] LABS: Basophils % 0.2 %; Eosinophils # 0.1 K/mcL (0.0-0.6); Eosinophils % 0.6 %; Hematocrit 38.7 % (35.3-44.9); Immature Granulocytes % 3.9 % (0-4); Lymphocytes # 0.6 K/mcL (0.6-4.6); Lymphocytes % 3.9 %; Mean Corpuscular HGB Conc 34.6 g/dL (31.6-35.5); Mean Corpuscular Hemoglobin 30.9 pg (28.0-33.3); Mean Corpuscular Volume 89.2 fL (83.0-100.0); Monocytes % 7.3 %; Neutrophils # 11.9 K/mcL (1.6-8.9); Platelet Count 348 K/mcL (140-400); Red Blood Count 4.34 M/mcL (3.82-4.97); Red Cell Distribution Width 14.4 % (11.5-14.5); Segmented Neutrophils % 84.1 %
[2017-02-24 04:53] LABS: Hemoglobin 13.4 g/dL (11.5-15.4)
[2017-02-24 05:04] LABS: Magnesium 1.8 mg/dL (1.6-2.6); Phosphorous 3.1 mg/dL (2.3-4.7)
[2017-02-24 05:05] LABS: Calcium 9.5 mg/dL (8.6-10.8); Potassium 4.3 mEq/L (3.5-4.5)
[2017-02-24] MEDS: *HR* Heparin 5,000 UNIT/ML VIAL SQ SCH ×2 (06:29→18:17)
--- NOTE | 2017-02-24 07:25 | General Surgery Progress Note ---
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 Subtotal gastrectomy with staple to the end of the esophagus for modified sleeve resection to ensure gastrointestinal continuity. Staple line demonstrated some visible black necrotic mucosa however seromuscular layer appeared viable. EGD with PEG tube placement 02/20/[address] Barnes. PEG site clean, dry. 275cc gastric drainage. Abdomen soft, diffuse tenderness to palpation with no signs of peritonitis. Bowel sounds present. Incision clean and dry. Vela catheter remains in place. 02/23 UOP 2350cc Per Nursing staff tube feedings were attempted overnight, following 2 administrations there were 50 mL of residuals noted Will place PEG tube to drain, hold tube feeds today and attempt TPN again tomorrow. Plan: -Hold tube feeds today -NPO today -Continue TPN -Reglan 20 mg IV every 8 hours 36 hours and then stop -Continue pain control and IV hydration -AM labs (2) Gastric necrosis Current Visit: Yes Status: Acute (3) Acute pancreatitis Current Visit: Yes Status: Acute Qualifiers: Pancreatitis type: unspecified pancreatitis type Acute pancreatitis complication: unspecified Qualified Code(s): K85.90 - Acute pancreatitis without necrosis or infection, unspecified (4) Mental retardation Current Visit: Yes Status: Acute Subjective Narrative: Patient seen and examined. She is awake and alert in no distress. Per nursing staff after TPN administration yesterday there was a 50 mL residuals after 2 administrations. Objective Vital Signs - Last 8 Hours Temp Pulse Resp BP Pulse Ox 02/24/17 03:12 98.8 F 75 18 144/96 96 02/23/17 23:25 98.2 F 79 18 158/107 93 Intake and Output 02/23/17 02/23/17 02/24/17 15:59 23:59 07:59 Intake Total 944 / 944 40 / 40 Output Total 750 / 750 890 / 890 325 / 325 Balance -750 / -750 54 / 54 -285 / -285 Intake: IV Fluids 844 / 844 Clinimix E 5%-15% 844 / 844 SOLUTION 2,000 ML @ 60 mls/hr IVC .Q24H CHARLA with M.v.i. Adult 10 ml Rx#: [id number] Tube Feeding 40 / 40 Free Water Intake Amount 100 / 100 Output: Gastric Tube Lavage 40 / 40 Amount Left Upper Quadrant 40 / 40 Catheter 625 / 625 850 / 850 325 / 325 Gastric Drainage 125 / 125 Other: Stool Size Moderate Stool Consistency loose Stool Characteristics Seedy Stool Color Brown # Bowel Movements 1 Weight 61.16 kg Blood Glucose* 104 118 119 Patient Weight 02/24/17 23:59 Weight 61.16 kg - General physical appearance no distress, moderate pain, cachectic, chronically ill - Eyes PERRL, normal ocular movement - ENT dry mucosa, atraumatic, normocephalic - Neck Neck exam: trachea midline - Respiratory normal expansion, normal respiratory effort, clear to auscultation - Cardiovascular Cardiovascular exam: Present: RRR, no murmurs/rubs/gallops - Abdomen Abdomen: Present: bowel sounds present, soft, tender. Absent: distended Abdominal Tenderness: diffusely Additional Comments: PEG tube in place - Incision Incision: Present: clean and dry - Integumentary no rash, no growths, no abnormal pigmentation - Labs 02/24/17 04:30 02/24/17 13:40 Diabetes panel 02/24/17 Range/Units 04:30 Sodium 136 (136-145) mEq/L Potassium 4.3 (3.5-4.5) mEq/L Chloride 110 H (98-109) mEq/L Carbon Dioxide 19 (19-29) mEq/L BUN 57 H (7-20) mg/dL Creatinine 1.84 H (0.57-1.11) mg/dL Glucose 117 H (70-99) mg/dL Calcium 9.5 (8.6-10.8) mg/dL Calcium panel 02/24/17 02/24/17 Range/Units 04:30 04:30 Calcium 9.5 (8.6-10.8) mg/dL Phosphorus 3.1 (2.3-4.7) mg/dL Pituitary panel 02/24/17 Range/Units 04:30 Sodium 136 (136-145) mEq/L Potassium 4.3 (3.5-4.5) mEq/L Chloride 110 H (98-109) mEq/L Carbon Dioxide 19 (19-29) mEq/L BUN 57 H (7-20) mg/dL Creatinine 1.84 H (0.57-1.11) mg/dL Glucose 117 H (70-99) mg/dL Calcium 9.5 (8.6-10.8) mg/dL Adrenal panel 02/24/17 Range/Units 04:30 Sodium 136 (136-145) mEq/L Potassium 4.3 (3.5-4.5) mEq/L Chloride 110 H (98-109) mEq/L Carbon Dioxide 19 (19-29) mEq/L BUN 57 H (7-20) mg/dL Creatinine 1.84 H (0.57-1.11) mg/dL Glucose 117 H (70-99) mg/dL Calcium 9.5 (8.6-10.8) mg/dL - VTE Documentation of Mechanical Device: Intermittent pneumatic compression device Consult Discharge Plan - Plan Referrals: Ash Dumont MD [Partnered Physician] - - Attending Attestation I examined this patient and my medical decision-making was reviewed with the TNT POWDER WORKER/PA/Advanced Practice Nurse/Resident Physician. I agree with the documented findings, disposition and treatment plan as described except to the extent set forth below. The patient seen and evaluated. She residuals. Her PEG tube feedings for 24 hours. She will be started on Reglan. We will try again tomorrow after more bowel rest. Dane Barnes MD FACS
[2017-02-24] MEDS: Pantoprazole 40 MG VIAL IVPB SCH (08:20)
[2017-02-24] MEDS: Chlorhexidine Rinse 15 ML MOUTHWASH MM SCH ×2 (08:20→21:55)
[2017-02-24] MEDS: Metoclopramide 20 MG in 0.9 % Sodium Chloride 50 ML IVPB SCH ×2 (08:20→15:37)
--- NOTE | 2017-02-24 12:16 | Internal Med Progress Note ---
Date of Encounter: 02/24/17 Time of Encounter: 10:00 - Assessment and plan (1) Small bowel obstruction Current Visit: Yes Status: Acute Assessment and plan: Had the surgery. POD# 7. - On TPN. - Hold the PEG tube feeding per surgical consult - Surgical consult is on case, recommendations will be followed (2) Acute kidney injury Current Visit: Yes Status: Acute Assessment and plan: Improved after treatment. Continue closely monitor renal function (3) DVT prophylaxis Current Visit: Yes Status: Acute Assessment and plan: Heparin subcutaneously (4) Mental retardation Current Visit: Yes Status: Acute (5) Gastric necrosis Current Visit: Yes Status: Acute Assessment and plan: S/P surgery. Surgical consult on case, recommendation will be followed. (6) Recent major surgery Current Visit: Yes Status: Acute Assessment and plan: Continue closely monitor patient - Time Spent With Patient 25 - 35 minutes - Subjective Interval history: Patient is a 62-year-old female admitted for small bowel obstruction and gastric necrosis. Her past medical history is significant for mental retard, IBS Patient was seen and examined. She cannot answer question appropriately. Looks in no acute distress. Vitals are stable. On TPN. Tube feeding is on hold per surgical consult. Will continue to closely monitor patient. - Constitutional Vitals: Temp Pulse Resp BP Pulse Ox 97 F L 73 16 146/96 95 02/24/17 07:50 02/24/17 07:25 02/24/17 07:25 02/24/17 07:25 02/24/17 07:25 General appearance: Present: A&O X 0, no acute distress - Head Head exam: Present: atraumatic, normocephalic - Eye Eye exam: Present: PERRL, conjuntiva pink, sclera anicteric Pupils: Present: PERRL - Neck Neck exam general surgery: Present: supple, trachea midline. Absent: lymphadenopathy - Respiratory Respiratory exam: Present: CTAB. Absent: accessory muscle use, rales, rhonchi, wheezes - Cardiovascular Cardiovascular exam: Present: RRR, +S1, +S2. Absent: diastolic murmur, gallop, rubs, systolic murmur - GI/Abdominal GI/Abdominal exam: Present: hypoactive bowel sounds, soft, tenderness, no peritoneal signs. Absent: distended - Extremities Exam Extremities exam: Present: warm, radial pulses palpable and symetrical. Absent : calf tenderness, cyanotic, pedal edema - Neurological Exam Neurological exam: Present: CN II-XII intact, oriented X3, no focal deficits. Absent: pronater drift, facial droop, speech deficit - Skin Skin exam: Present: dry, intact Internal Medicine: Result - Labs CBC & Chem 7: 02/24/17 04:30 02/24/17 04:30 Labs: Short CBC 02/24/17 Range/Units 04:30 WBC 14.2 H (4.3-11.1) K/mcL Hgb 13.4 D (11.5-15.4) g/dL Hct 38.7 (35.3-44.9) % Plt Count 348 (140-400) K/mcL Neutrophils # 11.9 H (1.6-8.9) K/mcL BMP 02/24/17 04:30 Sodium 136 Potassium 4.3 Chloride 110 H Carbon Dioxide 19 BUN 57 H Creatinine 1.84 H Glucose 117 H Calcium 9.5 - ABG Interpretation ABG results: ABG ABG pH 7.31 pH Units (7.32-7.45) L 02/22/17 04:51 ABG pCO2 36 mmHg (35-45) 02/22/17 04:51 ABG pO2 122 mmHg (85-104) H 02/22/17 04:51 ABG O2 Saturation 98 % (95-98) 02/22/17 04:51 PT/INR, D-dimer PT 13.1 Seconds (9.4-12.1) H 02/18/17 10:30 - VTE Documentation of Mechanical Device: Intermittent pneumatic compression device Consult Discharge Plan - Plan Referrals: Ash Dumont MD [Partnered Physician] -
[2017-02-24 14:16] LABS: Calcium 8.7 mg/dL (8.6-10.8)
[2017-02-24] MEDS ORDERED: Clinimix E 5%-15% SOLUTION 2,000 ML with MVI, adult with vitamin K 10 ML IVC SCH (17:00)
[2017-02-24] MEDS: *HR* Morphine 2 MG/ML SYRINGE IVP PRN (19:16)
[2017-02-25] MEDS: Insulin LISPRO 300 UNITS/3 ML VIAL SQ SCH ×4 (00:15→17:29)
[2017-02-25] MEDS: Metoclopramide 20 MG in 0.9 % Sodium Chloride 50 ML IVPB SCH ×2 (03:13→08:35)
[2017-02-25 05:31] LABS: Basophils % 0.3 %; Eosinophils # 0.1 K/mcL (0.0-0.6); Eosinophils % 0.5 %; Hematocrit 35.7 % (35.3-44.9); Hemoglobin 12.2 g/dL (11.5-15.4); Lymphocytes # 0.7 K/mcL (0.6-4.6); Lymphocytes % 5.4 %; Mean Corpuscular HGB Conc 34.2 g/dL (31.6-35.5); Mean Corpuscular Hemoglobin 30.6 pg (28.0-33.3); Mean Corpuscular Volume 89.5 fL (83.0-100.0); Mean Platelet Volume 9.7 fL (9.4-12.4); Monocytes % 7.2 %; Neutrophils # 11.2 K/mcL (1.6-8.9); Platelet Count 369 K/mcL (140-400); Red Blood Count 3.99 M/mcL (3.82-4.97); Red Cell Distribution Width 14.6 % (11.5-14.5); Segmented Neutrophils % 84.6 %
[2017-02-25 05:46] LABS: Magnesium 1.7 mg/dL (1.6-2.6)
[2017-02-25] MEDS: *HR* Morphine 2 MG/ML SYRINGE IVP PRN ×4 (06:00→19:20)
[2017-02-25] MEDS ORDERED: Furosemide 20 MG/2 ML VIAL IVP ONE (06:38)
[2017-02-25] MEDS: *HR* Heparin 5,000 UNIT/ML VIAL SQ SCH ×2 (06:53→17:28)
--- NOTE | 2017-02-25 08:09 | General Surgery Progress Note ---
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 Barnes. Complications during surgery include two episodes of hypotension that responded to Hammad-Synephrine drip. 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 Subtotal gastrectomy with staple to the end of the esophagus for modified sleeve resection to ensure gastrointestinal continuity. Staple line demonstrated some visible black necrotic mucosa however seromuscular layer appeared viable. EGD with PEG tube placement 02/20/[address] Barnes. PEG site clean, dry. 1350 ml gastric drainage. However, it was noted that PEG tube was clamped. PEG tube was placed to Vela bag for ventilation and to equalize pressure. Abdomen soft, diffusely tender without signs of peritonitis, bowel sounds present. Incision clean and dry. Plan: -Hold tube feeds today -NPO today -Continue TPN -Reglan 20 mg IV every 8 hours 36 hours and then stop -Continue pain control and IV hydration -AM labs -Daily dressing change We will continue to allow surgical line to heal with PEG tube as a vent. PEG tube was placed to Vela. Do not clamp PEG tube allowed to vent for equalization/decompression. Hold tube feedings for today. (2) Gastric necrosis Current Visit: Yes Status: Acute (3) Mental retardation Current Visit: Yes Status: Acute (4) DVT prophylaxis Current Visit: Yes Status: Acute The assessment and plan as outlined above was discussed with the patient and/or family members who expressed understanding and agreement. All questions were answered. Continue EPCDs to bilateral lower extremities for DVT prophylaxis Subjective Patient reports: still having pain, bowel movement, afebrile Narrative: Patient was seen and examined. She is awake and alert and in moderate distress stating that she is in pain today. On examination it was noted that the PEG tube was clamped and patient had gastric distention and discomfort. PEG tube was placed to Vela bag to ventilate and equalize pressures. Patient had immediate relief. Episodes of tachypnea were noted overnight and family thought it may be due to anxiety/pain from stooling. Objective Vital Signs - Last 8 Hours Temp Pulse Resp BP Pulse Ox 02/25/17 07:36 98.0 F 89 32 156/105 94 02/25/17 06:00 97.8 F 111 36 173/113 95 02/25/17 03:54 98.3 F 89 28 150/87 94 02/25/17 02:35 98.1 F 90 26 140/89 93 02/25/17 01:28 99.4 F 55 28 152/90 95 02/25/17 00:25 97.5 F L 85 34 149/92 95 Intake and Output 02/24/17 02/25/17 02/25/17 23:59 07:59 15:59 Output Total 425 / 425 900 / 900 Balance -425 / -425 -900 / -900 Output: Catheter 425 / 425 900 / 900 Other: Stool Size Moderate Stool Consistency loose Stool Color Brown Weight 57.6 kg Blood Glucose* 118 119 Patient Weight 02/25/17 23:59 Weight 57.6 kg - General physical appearance moderate distress, moderate pain, cachectic, chronically ill - Eyes PERRL, normal ocular movement - ENT dry mucosa, atraumatic, normocephalic - Neck Neck exam: trachea midline - Respiratory normal expansion, normal respiratory effort, clear to auscultation - Cardiovascular Cardiovascular exam: Present: RRR, no murmurs/rubs/gallops. Absent: JVD - Abdomen Abdomen: Present: bowel sounds present, soft, distended, tender. Absent: guarding, rebound, rigid, peritoneal Additional Comments: PEG tube noted to be in place and clamped - Integumentary no rash, no abnormal pigmentation - Labs 02/25/17 05:20 02/24/17 13:40 Diabetes panel 02/24/17 Range/Units 13:40 Sodium 137 (136-145) mEq/L Potassium 4.0 (3.5-4.5) mEq/L Chloride 111 H (98-109) mEq/L Carbon Dioxide 20 (19-29) mEq/L BUN 54 H (7-20) mg/dL Creatinine 1.58 H (0.57-1.11) mg/dL Glucose 119 H (70-99) mg/dL Calcium 8.7 (8.6-10.8) mg/dL Calcium panel 02/24/17 02/25/17 Range/Units 13:40 05:20 Calcium 8.7 (8.6-10.8) mg/dL Phosphorus 3.0 (2.3-4.7) mg/dL Pituitary panel 02/24/17 Range/Units 13:40 Sodium 137 (136-145) mEq/L Potassium 4.0 (3.5-4.5) mEq/L Chloride 111 H (98-109) mEq/L Carbon Dioxide 20 (19-29) mEq/L BUN 54 H (7-20) mg/dL Creatinine 1.58 H (0.57-1.11) mg/dL Glucose 119 H (70-99) mg/dL Calcium 8.7 (8.6-10.8) mg/dL Adrenal panel 02/24/17 Range/Units 13:40 Sodium 137 (136-145) mEq/L Potassium 4.0 (3.5-4.5) mEq/L Chloride 111 H (98-109) mEq/L Carbon Dioxide 20 (19-29) mEq/L BUN 54 H (7-20) mg/dL Creatinine 1.58 H (0.57-1.11) mg/dL Glucose 119 H (70-99) mg/dL Calcium 8.7 (8.6-10.8) mg/dL - VTE Documentation of Mechanical Device: Intermittent pneumatic compression device Consult Discharge Plan - Plan Referrals: Ash Dumont MD [Partnered Physician] - - Attending Attestation I examined this patient and my medical decision-making was reviewed with the MANAGER OF PHARMACY/PA/Advanced Practice Nurse/Resident Physician. I agree with the documented findings, disposition and treatment plan as described except to the extent set forth below. The patient is seen and evaluated on morning rounds. She has her PEG tube clamped. I would prefer that this be vented to a Vela bag. This will keep the pressure off the staple line until she regains all of her bowel function. Maintain TPN and IV hydration. PEG tube to Vela bag vent Dane Barnes MD FACS
[2017-02-25] MEDS: Chlorhexidine Rinse 15 ML MOUTHWASH MM SCH ×2 (08:34→21:07)
[2017-02-25] MEDS: Pantoprazole 40 MG VIAL IVPB SCH (08:35)
[2017-02-25] MEDS ORDERED: Haloperidol Lactate 5 MG/ML VIAL IM PRN (10:20)
[2017-02-25] MEDS ORDERED: Vancomycin 1,000 MG in D5% in Water 250 ML IVPB SCH ×2 (14:00→16:00)
--- NOTE | 2017-02-25 14:14 | Internal Med Progress Note ---
Date of Encounter: 02/25/17 Time of Encounter: 10:00 - Assessment and plan (1) Small bowel obstruction Current Visit: Yes Status: Acute Assessment and plan: Had the surgery. POD# 8. - On TPN. - Hold the PEG tube feeding per surgical consult - Surgical consult is on case, recommendations will be followed (2) Acute kidney injury Current Visit: Yes Status: Acute Assessment and plan: Improved after treatment. Continue closely monitor renal function (3) Mental retardation Current Visit: Yes Status: Acute (4) Gastric necrosis Current Visit: Yes Status: Acute Assessment and plan: S/P surgery. Surgical consult on case, recommendation will be followed. (5) Recent major surgery Current Visit: Yes Status: Acute Assessment and plan: Continue closely monitor patient (6) Pneumonia Current Visit: Yes Status: Acute Assessment and plan: Patient has tachypnea and elevated WBC. Chest x-ray shows pneumonia on left lower lobe. - Aspiration versus hospital-acquired pneumonia. - Continue hold the PEG tube feeding, continue TPN. - Aspiration precaution - Place patient on Vanco and Zosyn Patient is at high risk because she is on vancomycin, need close monitoring Qualifiers: Pneumonia type: aspiration pneumonia Aspiration pneumonia type: due to gastric secretions Laterality: left Lung location: lower lobe of lung Qualified Code(s): J69.0 - Pneumonitis due to inhalation of food and vomit (7) DVT prophylaxis Current Visit: Yes Status: Acute Assessment and plan: Heparin subcutaneously - Time Spent With Patient Greater than 35 minutes - Subjective Interval history: Patient is a 62-year-old female admitted for small bowel obstruction and gastric necrosis. Her past medical history is significant for mental retard, IBS Patient was seen and examined. She cannot answer question appropriately. Has tachycardia/ tachypnea. Elevated WBC. No fever, Vitals are stable. On TPN. Tube feeding is on hold per surgical consult. CXR ordered and shows LLL pneumonia, will start vanco and zosyn treatment. - Constitutional Vitals: Temp Pulse Resp BP Pulse Ox 98.0 F 75 32 127/86 96 02/25/17 11:00 02/25/17 11:00 02/25/17 11:00 02/25/17 11:00 02/25/17 11:00 General appearance: Present: A&O X 0, no acute distress - Head Head exam: Present: atraumatic, normocephalic - Eye Eye exam: Present: PERRL, conjuntiva pink, sclera anicteric Pupils: Present: PERRL - Neck Neck exam general surgery: Present: supple, trachea midline. Absent: lymphadenopathy - Respiratory Respiratory exam: Present: CTAB. Absent: accessory muscle use, rales, rhonchi, wheezes - Cardiovascular Cardiovascular exam: Present: RRR, +S1, +S2. Absent: diastolic murmur, gallop, rubs, systolic murmur - GI/Abdominal GI/Abdominal exam: Present: hypoactive bowel sounds, soft, tenderness, no peritoneal signs. Absent: distended - Extremities Exam Extremities exam: Present: warm, radial pulses palpable and symetrical. Absent : calf tenderness, cyanotic, pedal edema - Neurological Exam Neurological exam: Present: CN II-XII intact, oriented X3, no focal deficits. Absent: pronater drift, facial droop, speech deficit - Skin Skin exam: Present: dry, intact Internal Medicine: Result - Labs CBC & Chem 7: 02/25/17 05:20 02/24/17 13:40 Labs: Short CBC 02/25/17 Range/Units 05:20 WBC 13.3 H (4.3-11.1) K/mcL Hgb 12.2 (11.5-15.4) g/dL Hct 35.7 (35.3-44.9) % Plt Count 369 (140-400) K/mcL Neutrophils # 11.2 H (1.6-8.9) K/mcL BMP 02/24/17 13:40 Sodium 137 Potassium 4.0 Chloride 111 H Carbon Dioxide 20 BUN 54 H Creatinine 1.58 H Glucose 119 H Calcium 8.7 - ABG Interpretation ABG results: ABG ABG pH 7.31 pH Units (7.32-7.45) L 02/22/17 04:51 ABG pCO2 36 mmHg (35-45) 02/22/17 04:51 ABG pO2 122 mmHg (85-104) H 02/22/17 04:51 ABG O2 Saturation 98 % (95-98) 02/22/17 04:51 PT/INR, D-dimer PT 13.1 Seconds (9.4-12.1) H 02/18/17 10:30 - Impressions Impressions Chest X-Ray 02/25/17 08:01 IMPRESSION: Increased left basilar consolidation and pleural effusion. Consider pneumonia. D/ / 02/25/2017 09:21:40 Bob Sanches MD / martin Interpreting Provider: Bob Sanches MD - VTE Documentation of Mechanical Device: Intermittent pneumatic compression device Consult Discharge Plan - Plan Referrals: Ash Dumont MD [Partnered Physician] -
[2017-02-25] MEDS: Piperacillin/Tazobactam 3.375 GM in D5% in Water (Mini-Bag+) 100 ML IVPB SCH (15:50)
[2017-02-25] MEDS ORDERED: Clinimix E 5%-15% SOLUTION 2,000 ML with MVI, adult with vitamin K 10 ML IVC SCH (17:00)
[2017-02-26] MEDS: Insulin LISPRO 300 UNITS/3 ML VIAL SQ SCH ×5 (00:02→23:51)
[2017-02-26] MEDS: Piperacillin/Tazobactam 3.375 GM in D5% in Water (Mini-Bag+) 100 ML IVPB SCH ×4 (01:26→23:49)
[2017-02-26 04:58] LABS: Basophils % 0.2 %; Eosinophils % 0.3 %; Hematocrit 36.8 % (35.3-44.9); Hemoglobin 12.3 g/dL (11.5-15.4); Immature Granulocytes % 1.9 % (0-4); Lymphocytes # 0.8 K/mcL (0.6-4.6); Lymphocytes % 4.9 %; Mean Corpuscular HGB Conc 33.4 g/dL (31.6-35.5); Mean Corpuscular Hemoglobin 30.8 pg (28.0-33.3); Mean Corpuscular Volume 92.2 fL (83.0-100.0); Mean Platelet Volume 10.4 fL (9.4-12.4); Monocytes # 0.8 K/mcL (0.0-1.3); Monocytes % 4.7 %; Neutrophils # 13.9 K/mcL (1.6-8.9); Platelet Count 369 K/mcL (140-400); Red Blood Count 3.99 M/mcL (3.82-4.97); Red Cell Distribution Width 14.9 % (11.5-14.5)
[2017-02-26] MEDS: *HR* Heparin 5,000 UNIT/ML VIAL SQ SCH ×2 (05:01→17:14)
[2017-02-26 05:12] LABS: Calcium 9.5 mg/dL (8.6-10.8); Potassium 4.4 mEq/L (3.5-4.5)
[2017-02-26] MEDS ORDERED: D5% in 0.9% NACL 1,000 ML IVC SCH (06:15)
--- NOTE | 2017-02-26 07:23 | General Surgery Progress Note ---
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 Barnes. Complications during surgery include two episodes of hypotension that responded to Hammad-Synephrine drip. 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 Subtotal gastrectomy with staple to the end of the esophagus for modified sleeve resection to ensure gastrointestinal continuity. Staple line demonstrated some visible black necrotic mucosa however seromuscular layer appeared viable. EGD with PEG tube placement 02/20/[address] Barnes. PEG site clean, dry. 225 ml gastric drainage. PEG tube to Vela bag for ventilation and to equalize pressure off staple line. On physical examination patient has facial flushing, soft diffusely tender abdomen without signs of peritonitis, bowel sounds present, tachypnea, tachycardia, and patient had evacuated her bowels all over herself. Incision clean and dry. Afebrile. Leukocytosis/Elevated white blood cell count 15.8> 13.3, with shift. Plan: -NPO today -Will re evaluate need for TPN pending KUB. -Continue pain control and IV hydration -AM labs -Daily dressing change Hold tube feedings for today. We will continue to allow surgical staple line to heal with PEG tube as a vent. Keep PEG tube to Vela. Do not clamp PEG tube. Please allow to vent for equalization/decompression until patient regains her bowel function. KUB with Gastrografin to PEG tube pending. Suspect there may be a gastric perforation along the staple line. May consider CT scan for further evaluation pending KUB. (If there is no leak, will address nutrition for possible slow feeding.) (2) Gastric necrosis Current Visit: Yes Status: Acute As above. (3) Mental retardation Current Visit: Yes Status: Chronic (4) DVT prophylaxis Current Visit: Yes Status: Acute The assessment and plan as outlined above was discussed with the patient and/or family members who expressed understanding and agreement. All questions were answered. Continue EPCDs to bilateral lower extremities for DVT prophylaxis Subjective Patient reports: still having pain, afebrile Narrative: The patient was seen and examined. Patient appeared restless and uncomfortable she was pointing to her lower abdomen indicating that she was in pain. On physical examination patient has facial flushing, diffusely tender abdomen, tachypnea, tachycardia, and patient had evacuated her bowels all over herself. Overnight patient had pulled out her PICC line, her pain to being to the Vela bag fell apart and had to be replaced, she developed facial flushing after receiving vancomycin and Zosyn, and she desaturated to 93 on 2 L and had to be bumped up back to 4 L to improve oxygen saturation to 97%. Objective Vital Signs - Last 8 Hours Temp Pulse Resp BP Pulse Ox 02/26/17 05:26 97.7 F 82 34 150/100 97 02/26/17 03:08 98.6 F 61 32 142/74 97 02/25/17 23:35 98.4 F 82 32 142/83 93 Intake and Output 02/25/17 02/25/17 02/26/17 15:59 23:59 07:59 Intake Total 2100 / 2100 590 / 590 Output Total 1250 / 1250 800 / 800 400 / 400 Balance -1250 / -1250 1300 / 1300 190 / 190 Intake: IV Fluids 2099 / 2099 590 / 590 Clinimix E 5%-15% 1750 / 1750 365 / 365 SOLUTION 2,000 ML @ 60 mls/hr IVC .Q24H CHARLA with M.v.i. Adult 10 ml Rx#: [id number] Intralipid 20% 250 ML @ 125 / 125 21 mls/hr IVPB DAILY@1700 [facility]LA Rx#:[id number] Zosyn 3.375 GM In 100 / 100 100 / 100 Dextrose 5% (Minibag+) 100 ML 100 ML @ 25 mls/hr IVPB Q8HR [facility] Rx#: [id number] Vancocin 1,000 MG In 250 / 250 Dextrose 5% 250 ML @ 167 mls/hr IVPB Q24H [facility] Rx#: [id number] Oral 0 / 0 0 / 0 Output: Catheter 1250 / 1250 650 / 650 250 / 250 Gastric Drainage 150 / 150 150 / 150 Other: Meal NPO lunch Tube feed Weight 57.6 kg Blood Glucose* 109 99 79 Patient Weight 02/26/17 23:59 Weight 57.6 kg - General physical appearance moderate distress, moderate pain, cachectic, chronically ill - Eyes PERRL, normal ocular movement - ENT atraumatic, normocephalic, CN 2-12 grossly intact - Neck Neck exam: trachea midline - Respiratory normal expansion, normal respiratory effort, clear to auscultation - Cardiovascular Cardiovascular exam: Present: RRR, no murmurs/rubs/gallops. Absent: JVD - Abdomen Abdomen: Present: bowel sounds present, soft, tender Additional Comments: PEG tube in place to Vela bag. - Incision Incision: Present: clean and dry, intact - Integumentary other (Facial flushing) - Labs 02/28/17 04:09 02/27/17 06:21 Diabetes panel 02/26/17 Range/Units 04:22 Sodium 142 (136-145) mEq/L Potassium 4.4 (3.5-4.5) mEq/L Chloride 111 H (98-109) mEq/L Carbon Dioxide 24 (19-29) mEq/L BUN 49 H (7-20) mg/dL Creatinine 1.33 H (0.57-1.11) mg/dL Glucose 88 (70-99) mg/dL Calcium 9.5 (8.6-10.8) mg/dL Calcium panel 02/26/17 Range/Units 04:22 Calcium 9.5 (8.6-10.8) mg/dL Pituitary panel 02/26/17 Range/Units 04:22 Sodium 142 (136-145) mEq/L Potassium 4.4 (3.5-4.5) mEq/L Chloride 111 H (98-109) mEq/L Carbon Dioxide 24 (19-29) mEq/L BUN 49 H (7-20) mg/dL Creatinine 1.33 H (0.57-1.11) mg/dL Glucose 88 (70-99) mg/dL Calcium 9.5 (8.6-10.8) mg/dL Adrenal panel 02/26/17 Range/Units 04:22 Sodium 142 (136-145) mEq/L Potassium 4.4 (3.5-4.5) mEq/L Chloride 111 H (98-109) mEq/L Carbon Dioxide 24 (19-29) mEq/L BUN 49 H (7-20) mg/dL Creatinine 1.33 H (0.57-1.11) mg/dL Glucose 88 (70-99) mg/dL Calcium 9.5 (8.6-10.8) mg/dL - VTE Documentation of Mechanical Device: Intermittent pneumatic compression device Consult Discharge Plan - Plan Referrals: Ash Dumont MD [Partnered Physician] - (SENT WEB REQUEST ON 02-27-17 @ 2009) - Attending Attestation I examined this patient and my medical decision-making was reviewed with the SECONDS HAND[employer]ER/PA/Advanced Practice Nurse/Resident Physician. I agree with the documented findings, disposition and treatment plan as described except to the extent set forth below. The patient is seen and evaluated morning rounds and has tachypnea and intermittent hypoxia. We will perform a contrast study of the gastric remnant to search for any leaks. She will need to be treated aggressively. Dane Barnes MD FACS
[2017-02-26] MEDS ORDERED: 0.9 % Sodium Chloride 500 ML ONE (07:49)
[2017-02-26] MEDS ORDERED: 0.9 % Sodium Chloride 500 ML IVC ONE (07:52)
[2017-02-26] MEDS ORDERED: *HR* Metoprolol 5 MG/5 ML VIAL IVP ONE (07:54)
[2017-02-26] MEDS ORDERED: D5% in 0.45% NACL 1,000 ML IVC SCH (10:00)
[2017-02-26] MEDS: Pantoprazole 40 MG VIAL IVPB SCH (10:13)
[2017-02-26] MEDS: Chlorhexidine Rinse 15 ML MOUTHWASH MM SCH ×2 (10:13→19:43)
[2017-02-26 12:31] LABS: Calcium 9.7 mg/dL (8.6-10.8); Potassium 4.9 mEq/L (3.5-4.5)
--- NOTE | 2017-02-26 15:51 | Internal Med Progress Note ---
Date of Encounter: 02/26/17 Time of Encounter: 08:00 - Assessment and plan (1) Small bowel obstruction Current Visit: Yes Status: Acute Assessment and plan: Had the surgery. POD# 9. - TPN on hold b/o line has been pulled out. May restart if pt cannot tolerate tube feeding. Managed by surgical team. - Hold the PEG tube feeding per surgical consult - Surgical consult is on case, recommendations will be followed (2) Acute kidney injury Current Visit: Yes Status: Acute Assessment and plan: Improved after treatment. Continue closely monitor renal function (3) Mental retardation Current Visit: Yes Status: Acute (4) Gastric necrosis Current Visit: Yes Status: Acute Assessment and plan: S/P surgery. Surgical consult on case, recommendation will be followed. (5) Recent major surgery Current Visit: Yes Status: Acute Assessment and plan: Continue closely monitor patient (6) Pneumonia Current Visit: Yes Status: Acute Assessment and plan: Patient has tachypnea and elevated WBC. Chest x-ray shows pneumonia on left lower lobe. - Aspiration versus hospital-acquired pneumonia. - Continue hold the PEG tube feeding, managed by surgical team. - Aspiration precaution - Place patient on Vanco and Zosyn Patient is at high risk because she is on vancomycin, need close monitoring Qualifiers: Pneumonia type: aspiration pneumonia Aspiration pneumonia type: due to gastric secretions Laterality: left Lung location: lower lobe of lung Qualified Code(s): J69.0 - Pneumonitis due to inhalation of food and vomit (7) DVT prophylaxis Current Visit: Yes Status: Acute Assessment and plan: Heparin subcutaneously (8) SVT (supraventricular tachycardia) Current Visit: Yes Status: Acute Assessment and plan: Transient SVT this morning. Convert to sinus rhythm after 5 mg IV metoprolol. Closely monitor patient in telemetry. - Time Spent With Patient Greater than 35 minutes - Subjective Interval history: Patient is a 62-year-old female admitted for small bowel obstruction and gastric necrosis. Her past medical history is significant for mental retard, IBS Patient was seen and examined. Patient develop a tachycardia this morning. EKG shows SVT. Convert to sinus rhythm after metoprolol 5 mg IV. Elevated WBC even on Vanco and Zosyn, cannot purely explained by pneumonia, probably abdominal etiology. Surgery will check PEG tube to rule out leakage. Transfer patient to [facility] for closer monitoring. Continue Vanco and Zosyn. PICC line has been pulled out by patient herself, TPN has to be stopped. Place IV fluid and closely monitor patient. - Constitutional Vitals: Temp Pulse Resp BP Pulse Ox 967.6 F H 60 26 155/95 100 02/26/17 15:32 02/26/17 15:32 02/26/17 15:32 02/26/17 15:32 02/26/17 15:32 General appearance: Present: A&O X 0, no acute distress - Head Head exam: Present: atraumatic, normocephalic - Eye Eye exam: Present: PERRL, conjuntiva pink, sclera anicteric Pupils: Present: PERRL - Neck Neck exam general surgery: Present: supple, trachea midline. Absent: lymphadenopathy - Respiratory Respiratory exam: Present: CTAB, tachypnea. Absent: accessory muscle use, rales , rhonchi, wheezes - Cardiovascular Cardiovascular exam: Present: RRR, +S1, +S2. Absent: diastolic murmur, gallop, rubs, systolic murmur - GI/Abdominal GI/Abdominal exam: Present: hypoactive bowel sounds, soft, tenderness, no peritoneal signs. Absent: distended - Extremities Exam Extremities exam: Present: warm, radial pulses palpable and symetrical. Absent : calf tenderness, cyanotic, pedal edema - Neurological Exam Neurological exam: Present: CN II-XII intact, oriented X3, no focal deficits. Absent: pronater drift, facial droop, speech deficit - Skin Skin exam: Present: dry, intact Internal Medicine: Result - Labs CBC & Chem 7: 02/26/17 04:22 02/26/17 12:07 Labs: Short CBC 02/26/17 Range/Units 04:22 WBC 15.8 H (4.3-11.1) K/mcL Hgb 12.3 (11.5-15.4) g/dL Hct 36.8 (35.3-44.9) % Plt Count 369 (140-400) K/mcL Neutrophils # 13.9 H (1.6-8.9) K/mcL BMP 02/26/17 02/26/17 04:22 12:07 Sodium 142 143 Potassium 4.4 4.9 H Chloride 111 H 112 H Carbon Dioxide 24 25 BUN 49 H 46 H Creatinine 1.33 H 1.49 H Glucose 88 119 H Calcium 9.5 9.7 - ABG Interpretation ABG results: ABG ABG pH 7.31 pH Units (7.32-7.45) L 02/22/17 04:51 ABG pCO2 36 mmHg (35-45) 02/22/17 04:51 ABG pO2 122 mmHg (85-104) H 02/22/17 04:51 ABG O2 Saturation 98 % (95-98) 02/22/17 04:51 PT/INR, D-dimer PT 13.1 Seconds (9.4-12.1) H 02/18/17 10:30 - Impressions Impressions Chest X-Ray 02/25/17 08:01 IMPRESSION: Increased left basilar consolidation and pleural effusion. Consider pneumonia. D/ / 02/25/2017 09:21:40 Bob Sanches MD / martin Interpreting Provider: Bob Sanches MD X-Ray 02/26/17 08:46 IMPRESSION: 1. New postoperative changes potentially related to sleeve gastrectomy or Nessa-en-Y gastric bypass, incompletely evaluated. 2. New percutaneous gastrostomy catheter with the balloon projecting over the distal stomach. 3. No definite findings extravasation of contrast from the lumina of the stomach or small bowel. D/ / Lars Yap MD / Lars Yap MD Interpreting Provider: Lars Yap MD - VTE Documentation of Mechanical Device: Intermittent pneumatic compression device Consult Discharge Plan - Plan Referrals: Ash Dumont MD [Partnered Physician] -
[2017-02-26] MEDS: *HR* Morphine 2 MG/ML SYRINGE IVP PRN (15:57)
[2017-02-26] MEDS: D5% in 0.45% NACL 1,000 ML IVC SCH (16:02)
[2017-02-26] MEDS ORDERED: Clinimix E 5%-15% SOLUTION 2,000 ML with MVI, adult with vitamin K 10 ML IVC SCH (17:00)
[2017-02-26] MEDS: Vancomycin 1,000 MG in D5% in Water 250 ML IVPB SCH (17:13)
[2017-02-27] MEDS: D5% in 0.45% NACL 1,000 ML IVC SCH ×2 (03:25→14:58)
[2017-02-27] MEDS: *HR* Heparin 5,000 UNIT/ML VIAL SQ SCH ×2 (05:32→18:17)
[2017-02-27] MEDS: Insulin LISPRO 300 UNITS/3 ML VIAL SQ SCH ×3 (05:33→17:55)
[2017-02-27 06:43] LABS: Basophils % 0.2 %; Eosinophils # 0.4 K/mcL (0.0-0.6); Eosinophils % 2.1 %; Hematocrit 36.4 % (35.3-44.9); Hemoglobin 12.2 g/dL (11.5-15.4); Immature Granulocytes % 1.1 % (0-4); Lymphocytes # 0.9 K/mcL (0.6-4.6); Lymphocytes % 5.4 %; Mean Corpuscular HGB Conc 33.5 g/dL (31.6-35.5); Mean Corpuscular Volume 92.6 fL (83.0-100.0); Mean Platelet Volume 10.1 fL (9.4-12.4); Monocytes # 0.9 K/mcL (0.0-1.3); Neutrophils # 15.1 K/mcL (1.6-8.9); Platelet Count 428 K/mcL (140-400); Red Blood Count 3.93 M/mcL (3.82-4.97); Segmented Neutrophils % 86.2 %
[2017-02-27 07:00] LABS: Calcium 9.3 mg/dL (8.6-10.8); Potassium 3.9 mEq/L (3.5-4.5)
[2017-02-27] MEDS ORDERED: *HR* Metoprolol 5 MG/5 ML VIAL IVP ONE (08:22)
[2017-02-27] MEDS ORDERED: *HR* Metoprolol 5 MG/5 ML VIAL IVP PRN (08:25)
[2017-02-27] MEDS ORDERED: *HR* Metoprolol 5 MG/5 ML VIAL IVP STA (08:26)
[2017-02-27] MEDS: Pantoprazole 40 MG VIAL IVPB SCH (08:33)
[2017-02-27] MEDS: Chlorhexidine Rinse 15 ML MOUTHWASH MM SCH ×2 (08:34→20:35)
[2017-02-27] MEDS: Piperacillin/Tazobactam 3.375 GM in D5% in Water (Mini-Bag+) 100 ML IVPB SCH ×2 (08:34→15:58)
--- NOTE | 2017-02-27 09:15 | General Surgery Progress Note ---
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 Barnes. Complications during surgery include two episodes of hypotension that responded to Hammad-Synephrine drip. 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 Subtotal gastrectomy with staple to the end of the esophagus for modified sleeve resection to ensure gastrointestinal continuity. Staple line demonstrated some visible black necrotic mucosa however seromuscular layer appeared viable. EGD with PEG tube placement 02/20/[address] Barnes. PEG site clean, dry. 225 ml gastric drainage. PEG tube to Vela bag for ventilation and to equalize pressure off staple line. On physical examination today, patient is alert and responding verbally today. No abdominal tenderness on palpation, no rebound, no rigidity no guarding. Incision clean and dry. Afebrile. Lungs sound worse today with diffuse crackles at the bases and rhonchi. Leukocytosis/Elevated white blood cell count 15.8> 13.3, with shift. Atrial fibrillation with RVR with rates from the 140s to 200s. I/O: 1350 -550 = +800 Plan: -Continue pain control and IV hydration -AM labs -Daily dressing change -Continue IV antibiotic therapy -Cardiology consult for atrial fibrillation Begin slow tube feedings (2) Gastric necrosis Current Visit: Yes Status: Acute As above. (3) Mental retardation Current Visit: Yes Status: Acute (4) DVT prophylaxis Current Visit: Yes Status: Acute The assessment and plan as outlined above was discussed with the patient and/or family members who expressed understanding and agreement. All questions were answered. Continue EPCDs to bilateral lower extremities for DVT prophylaxis Subjective Patient reports: flatus, bowel movement, afebrile Narrative: Patient was seen and examined. Patient is communicating verbally today states that she has no belly pain. I was notified by the nurse that patient had elevated heart rates in the 140s to 200s and had reverted back to atrial fibrillation. EKG reviewed. Intermittent episodes of tachycardia an irregular rhythms. Patient remains afebrile, although she has a notable increase in her white blood cells to 17.5 from 15.8 yesterday.Patient has had 250 mils of gastric drainage. Patient appears much more alert and communicative today. Objective Vital Signs - Last 8 Hours Temp Pulse Resp BP Pulse Ox 02/27/17 07:52 98.5 F 123 14 147/83 92 02/27/17 04:45 98.5 F 51 14 128/75 99 02/27/17 03:30 87 02/27/17 01:30 99 Intake and Output 02/26/17 02/27/17 02/27/17 23:59 07:59 15:59 Intake Total 200 / 200 1100 / 1100 Output Total 250 / 250 550 / 550 Balance -50 / -50 550 / 550 Intake: IV Fluids 200 / 200 1100 / 1100 D5% And 0.45% Nacl 1000 1000 / 1000 Ml Bag 1,000 ML @ 80 mls/ hr IVC .[id number] CHARLA Rx#: [id number] Zosyn 3.375 GM In 200 / 200 100 / 100 Dextrose 5% (Minibag+) 100 ML 100 ML @ 25 mls/hr IVPB Q8HR CHARLA Rx#: [id number] Oral 0 / 0 Output: Catheter 250 / 250 550 / 550 Other: Meal Dinner Percent of Meal Consumed 0% Weight 61.19 kg Blood Glucose* 88 88 Patient Weight 02/27/17 23:59 Weight 61.19 kg - General physical appearance no distress, no pain, cachectic, chronically ill - Eyes PERRL, normal ocular movement - ENT atraumatic, normocephalic, CN 2-12 grossly intact - Neck Neck exam: trachea midline - Respiratory crackles: bilateral, wheezing: bilateral - Cardiovascular Cardiovascular exam: Present: irregular rhythm. Absent: JVD - Abdomen Abdomen: Present: bowel sounds present, soft, tender Additional Comments: PEG tube in place to Vela bag. - Incision Incision: Present: clean and dry, intact - Integumentary no rash, no abnormal pigmentation - Labs 02/27/17 06:21 02/27/17 06:21 Diabetes panel 02/26/17 02/27/17 Range/Units 12:07 06:21 Sodium 143 144 (136-145) mEq/L Potassium 4.9 H 3.9 D (3.5-4.5) mEq/L Chloride 112 H 111 H (98-109) mEq/L Carbon Dioxide 25 25 (19-29) mEq/L BUN 46 H 35 H D (7-20) mg/dL Creatinine 1.49 H 1.37 H (0.57-1.11) mg/dL Glucose 119 H 101 H (70-99) mg/dL Calcium 9.7 9.3 (8.6-10.8) mg/dL Calcium panel 02/26/17 02/27/17 Range/Units 12:07 06:21 Calcium 9.7 9.3 (8.6-10.8) mg/dL Pituitary panel 02/26/17 02/27/17 Range/Units 12:07 06:21 Sodium 143 144 (136-145) mEq/L Potassium 4.9 H 3.9 D (3.5-4.5) mEq/L Chloride 112 H 111 H (98-109) mEq/L Carbon Dioxide 25 25 (19-29) mEq/L BUN 46 H 35 H D (7-20) mg/dL Creatinine 1.49 H 1.37 H (0.57-1.11) mg/dL Glucose 119 H 101 H (70-99) mg/dL Calcium 9.7 9.3 (8.6-10.8) mg/dL Adrenal panel 02/26/17 02/27/17 Range/Units 12:07 06:21 Sodium 143 144 (136-145) mEq/L Potassium 4.9 H 3.9 D (3.5-4.5) mEq/L Chloride 112 H 111 H (98-109) mEq/L Carbon Dioxide 25 25 (19-29) mEq/L BUN 46 H 35 H D (7-20) mg/dL Creatinine 1.49 H 1.37 H (0.57-1.11) mg/dL Glucose 119 H 101 H (70-99) mg/dL Calcium 9.7 9.3 (8.6-10.8) mg/dL - VTE Documentation of Mechanical Device: Intermittent pneumatic compression device Consult Discharge Plan - Plan Referrals: Ash Dumont MD [Partnered Physician] - (SENT WEB REQUEST ON 02-27-17 @ [id number])
[2017-02-27] MEDS: *HR* Morphine 2 MG/ML SYRINGE IVP PRN (09:50)
--- NOTE | 2017-02-27 11:43 | Internal Med Progress Note ---
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 Postop day 10. Continue management per surgery recommendations. High risk for complications due to poor nutritional status, requirement for TPN. (2) Acute kidney injury Current Visit: Yes Status: Acute Assessment and plan: Renal function remains stable with creatinine of 1.37. Continue IV hydration. Follow renal function closely and dose medications renally. (3) Atrial fibrillation Current Visit: Yes Status: Acute Assessment and plan: Patient developed A. fib this morning and was given intravenous metoprolol. As patient is nothing by mouth, will continue IV metoprolol as needed. Not on any anticoagulation at this time besides DVT prophylaxis doses of heparin. We will get 2-D echocardiogram. Cardiology has also been consulted. Qualifiers: Atrial fibrillation type: unspecified Qualified Code(s): I48.91 - Unspecified atrial fibrillation (4) Gastric necrosis Current Visit: Yes Status: Acute Assessment and plan: Status post surgery. Remains nothing by mouth. Surgery managing nutrition. Continue IV hydration. (5) Mental retardation Current Visit: Yes Status: Acute (6) Pneumonia Current Visit: Yes Status: Acute Assessment and plan: Slightly aspiration pneumonia. On IV antibiotics. Leukocytosis worsened today. Could be reactive as platelets are also elevated. We will follow blood counts. If patient develops any fever, we will repeat blood cultures. Qualifiers: Pneumonia type: aspiration pneumonia Aspiration pneumonia type: due to gastric secretions Laterality: left Lung location: lower lobe of lung Qualified Code(s): J69.0 - Pneumonitis due to inhalation of food and vomit (7) DVT prophylaxis Current Visit: Yes Status: Acute - Subjective Interval history: Patient is lying in bed. Appears comfortable but complains of abdominal pain. No shortness of breath or chest pain. Patient currently not receiving any nutrition as she had removed her venous access for giving TPN. Patient also went into A. fib earlier today and responded to IV metoprolol. - Constitutional Vitals: Temp Pulse Resp BP Pulse Ox 98.5 F 123 14 147/83 92 02/27/17 07:52 02/27/17 07:52 02/27/17 07:52 02/27/17 07:52 02/27/17 07:52 General appearance: Present: A&O X 0, mild distress, no acute distress, underweight, answers questions appropriately - Respiratory Respiratory exam: Present: CTAB. Absent: accessory muscle use, rales, rhonchi, wheezes - Cardiovascular Cardiovascular exam: Present: RRR, +S1, +S2. Absent: diastolic murmur, gallop, rubs, systolic murmur - GI/Abdominal GI/Abdominal exam: Present: diminished bowel sounds, soft, tenderness ( Midepigastric region around PEG tube site), no peritoneal signs. Absent: distended - Neurological Exam Neurological exam: Present: alert, no focal deficits. Absent: facial droop, speech deficit Internal Medicine: Result - Labs CBC & Chem 7: 02/27/17 06:21 02/27/17 06:21 Labs: Short CBC 02/27/17 Range/Units 06:21 WBC 17.5 H (4.3-11.1) K/mcL Hgb 12.2 (11.5-15.4) g/dL Hct 36.4 (35.3-44.9) % Plt Count 428 H (140-400) K/mcL Neutrophils # 15.1 H (1.6-8.9) K/mcL BMP 02/26/17 02/27/17 12:07 06:21 Sodium 143 144 Potassium 4.9 H 3.9 D Chloride 112 H 111 H Carbon Dioxide 25 25 BUN 46 H 35 H D Creatinine 1.49 H 1.37 H Glucose 119 H 101 H Calcium 9.7 9.3 - ABG Interpretation ABG results: ABG ABG pH 7.31 pH Units (7.32-7.45) L 02/22/17 04:51 ABG pCO2 36 mmHg (35-45) 02/22/17 04:51 ABG pO2 122 mmHg (85-104) H 02/22/17 04:51 ABG O2 Saturation 98 % (95-98) 02/22/17 04:51 PT/INR, D-dimer PT 13.1 Seconds (9.4-12.1) H 02/18/17 10:30 - VTE Documentation of Mechanical Device: Intermittent pneumatic compression device Consult Discharge Plan - Plan Referrals: Ash Dumont MD [Partnered Physician] - (SENT WEB REQUEST ON 02-27-17 @ [phone]) - Attending Attestation This document has been at least partially created by [employer] recognition technology by Dr. Ellington. Errors in grammar, wording or other phrases may exist. If errors are found after the documentation is signed, they will be addressed individually in the addendum section of this document when appropriate.
--- NOTE | 2017-02-27 13:27 | Cardiology Consult Note ---
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 Barnes". Management per primary service and hospitalist team. (2) Atrial fibrillation Current Visit: Yes Status: Acute Per Cardiology: Mother reports no known past history of atrial fibrillation. Noted to have A. fib with RVR this morning and reported A. fib with RVR upon arrival through this hospitalization. Episodes of atrial flutter noted on telemetry. Occurring in setting of recent surgery for small bowel obstruction, acute kidney injury, and pneumonia. Patient receiving IV Lopressor 5 mg as needed. Currently heart rate fluctuating 90s to 100s up to 120s to 130s and remained sinus rhythm with frequent PACs and multifocal atrial tachycardia. We'll convert IV Lopressor to 5 mg every 6 hours scheduled. If has recurrent A. fib or flutter with rapid ventricular response recommend initiating Cardizem drip. Current systolic blood pressures in the 130s to 140s. Echo pending. We'll check magnesium and TSH. Regarding long-term anticoagulation, currently on subcutaneous heparin. We'll need to address long-term anticoagulation, however suspect patient would not be a good candidate due to multiple comorbid conditions and has MRDD. Discussed and reviewed with Dr. Irizarry. Qualifiers: Atrial fibrillation type: unspecified Qualified Code(s): I48.91 - Unspecified atrial fibrillation (3) DEBORAH (acute kidney injury) Current Visit: Yes Status: Acute Per Cardiology: Presented with apparent DEBORAH. Appears to be improving. (4) Mental retardation Current Visit: Yes Status: Chronic Per Cardiology: Hx of MRDD, mother is POA. (5) Pneumonia Current Visit: Yes Status: Acute Per Cardiology: Management per primary service. Qualifiers: Pneumonia type: aspiration pneumonia Aspiration pneumonia type: due to gastric secretions Laterality: left Lung location: lower lobe of lung Qualified Code(s): J69.0 - Pneumonitis due to inhalation of food and vomit Discussion w patient/family: The assessment and plan as outlined above was discussed with the patient and/or family members who expressed understanding and agreement. All questions were answered. Thank you for involving us in the care of your patient. Please call with any questions. History of Present Illness Consult date: 02/27/17 Requesting physician: Sarah Ellington Consult reason: Aflutter RVR Chief complaint: N/A History of present illness: Previous records reviewed: "Ms. Mcneil is a 62 year old female history of MRDD and irritable bowel syndrome admitted to [facility] for a high-grade small bowel obstruction. History was provided by mother. Patient normally will answer "yes, no momma, and ouch." Reports over the past several weeks patient has been ill appearing and complaining of pain. She has history of chronic pain in the knee requiring arthoscopy and thought that was mostly her pain. Over the past week or so she has had diminished oral intake and has been vomiting frequently, described as bile. Attempt to take her to PCP in [place] but complained of pain everyone, including placing a blood pressure cuff. Patient has been taking Meloxicam for the pain and Hydroxyzine for the agitation. Mother believed that this may have just been the flu. Earlier today around 1300 patient was attempting to eat a hamburger and soup but vomited and at one point passed out and was not acting her normal self. Mother noticed that her abdomen is more distended than usual and EMS was called. Denies any fever, chills, bloody stools or black tarry stools. She has noticed decreased urine output as well as lower frequency of BM. Denies any prior abdominal surgeries. Denies any recent travel, tobacco use , or alcohol use. Upon her arrival to ED, she was hypotensive 70/50s and required push dose pressors of Epinephrine. Found to be in atrial fibrillation RVR as high as 180s. Abdomen was severely distended and firm. Labs were significant for leukocytosis, lactic acidosis of 18 with elevated lipase 2218. Given 3L of NS and left femoral CVC placed. CT shows high-grade small bowel obstruction. Surgery, Dr. Epps, consulted and recommended conservative management at this time with bowel decompression and volume resuscitation. Possibly surgical intervention. After NG tube placement, 2L immediate gastric output and patient' s hemodynamics improved. She remains in atrial fibrillation rate of 90. Appears in less distress and abdomen is less firm. Mother signed form for DNR-CCA". Cardiology C/S today for afib RVR. 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 Barnes". Has a relevant PMH of HTN. Patient seen today with mother at bedside. History obtained from mother. Patient cooperative, however unable to provide answers to questions. Clinically appears stable. Appears to not have any chest pain. Mother denies any known history of atrial fibrillation. Patient is DNR Comfort Care arrest. Past Med Surg Social Fam HX - Past Medical History Source: old records reviewed, obtained from family, other (patient with MRDD) Medical history: hypertension, other Psychiatric history: anxiety - Past Surgical History Surgical History: other - Social History Smoking Status: Never smoker Smokeless Tobacco Status: No Alcohol use: none Drug use: none Medications and Allergies Acetaminophen [Tylenol] 1,000 mg PO Q4H PRN 02/15/17 [History] Calcium Carbonate/Simethicone [[place] Heartburn+Gas] 1 each PO Q4H PRN [History] Haloperidol [Haldol] 1 mg PO BID 02/15/17 [History] Meloxicam [Mobic] 15 mg PO DAILY PRN 02/15/17 [History] Polyethylene Glycol 3350 [Smoothlax] 17 gm PO DAILY PRN 02/15/17 [History] hydrOXYzine HCl [Hydroxyzine HCl] 12.5 - 50 mg PO Q6H PRN 02/15/17 [History] Allergies No Known Allergies Allergy (Verified 07/16/15 22:23) All Systems Review: A 10-system review of systems was performed and is negative for pertinent findings except as documented above in the HPI. - Cardiovascular Cardiovascular: as per HPI - Gastrointestinal Gastrointestinal: abdominal pain Physical Examination Vital Signs, Last 4 Hours Temp Pulse Resp BP Pulse Ox 02/27/17 11:48 98.6 F 108 16 118/75 98 General: No Apparent Distress, Other (verbal one word responses inappropriate to context of questions) HEENT: Atraumatic, Normocephaly, Mucus Membranes Moist Cardiac: No Murmur, Other (Irregularly irregular) Lungs: Normal Breath Sounds, No Wheeze, Rales, Rhonchi Neuro: Alert and responsive Abdomen: Other (distended, tender?, has PEG) Skin: No rashes noted on visualized skin Extremities: No Edema, Normal Pulses Results 02/27/17 06:21 02/27/17 06:21 Lab Results Laboratory Tests 02/15/17 02/15/17 02/19/17 14:45 14:45 04:30 WBC 18.1 H Creatinine 2.31 H Est GFR (Non-Af Amer) 22 L 12 L Magnesium 02/20/17 02/20/17 02/25/17 03:45 05:40 05:20 WBC 7.7 Creatinine 3.72 H Est GFR (Non-Af Amer) Magnesium 1.7 02/27/17 02/27/17 06:21 06:21 WBC 17.5 H Creatinine 1.37 H Est GFR (Non-Af Amer) 39 L Magnesium ITS Impressions Chest X-Ray 02/15/17 14:46 IMPRESSION: No evidence acute cardiopulmonary process. D/ / Yazmin Tipton MD / Yazmin Tipton MD Interpreting Provider: Yazmin Tipton MD Abdomen/Pelvis CT 02/15/17 14:54 IMPRESSION: 1. Massive distention of the stomach which is fluid-filled. There is pronounced dilation of the 1st and 2nd portions of the duodenum measuring up to 5 cm. The remainder of the small bowel is collapsed distally. Findings compatible with high-grade obstructive process at the level of the 2nd/3rd portions of the duodenum. Fluid is also seen extending of the partially visualized esophagus and findings predispose the patient for aspiration. D/ / Diaz Hollingsworth MD / Diaz Hollingsworth MD Interpreting Provider: Diaz Hollingsworth MD Head CT 02/15/17 15:38 IMPRESSION: Motion limited exam. Atrophy and moderate small vessel ischemic disease. If there is strong clinical concern for acute on chronic ischemia, consider MR. D/ / Patricio Kidd MD / Patricio Kidd MD Interpreting Provider: Patricio Kidd MD X-Ray 02/15/17 16:57 IMPRESSION: Nasogastric tube confirmed in the lumen of the stomach. D/ / Ellis Monroy MD / Ellis Monroy MD Interpreting Provider: Ellis Monroy MD Chest/Abdomen X-ray 02/15/17 18:36 IMPRESSION: Nonspecific bowel gas pattern. Decompression of distended stomach in comparison to prior CT on today's date. NG tube in place. D/ / Ellis Monroy MD / Ellis Monroy MD Interpreting Provider: Ellis Monroy MD Abdomen/Pelvis CT 02/16/17 11:00 IMPRESSION: 1. Left greater than right pleural effusions with bibasilar atelectasis. Additionally, there is superimposed left lower lobe infiltrate which is suspicious for superimposed pneumonia. 2. Marked interval decompression of the stomach and small bowel loops. Oral contrast reaches the ascending colon. 3. Moderate abdominopelvic ascites which has increased from prior study. 4. Colonic diverticulosis without associated acute inflammatory changes. D/ / 02/16/2017 11:55:21 Misha Dwyer MD / [facility] Interpreting Provider: Misha Dwyer MD Chest X-Ray 02/25/17 08:01 IMPRESSION: Increased left basilar consolidation and pleural effusion. Consider pneumonia. D/ / 02/25/2017 09:21:40 Bob Sanches MD / martin Interpreting Provider: Bob Sanches MD X-Ray 02/26/17 08:46 IMPRESSION: 1. New postoperative changes potentially related to sleeve gastrectomy or Nessa-en-Y gastric bypass, incompletely evaluated. 2. New percutaneous gastrostomy catheter with the balloon projecting over the distal stomach. 3. No definite findings extravasation of contrast from the lumina of the stomach or small bowel. D/ / Lars Yap MD / Lars Yap MD Interpreting Provider: Lars Yap MD Active Medications Chlorhexidine Gluconate (Chlorhexidine Rinse) 15 ml MM BID CHARLA Stop: 08/19/17 21:01 Last Admin: 02/27/17 08:34 Dose: 15 ml Dextrose/Water (Dextrose 50% (Syg)) 25 ml IVP AD PRN PRN Reason: Hypoglycemia Stop: 08/17/17 18:19 Glucagon (Glucagen) 1 mg IM ONCE PRN PRN Reason: Hypoglycemia Stop: 08/17/17 18:19 Glucose (Gluctose) 15 gm PO ONCE PRN PRN Reason: Hypoglycemia Stop: 08/17/17 18:19 Glucose (Gluctose) 30 gm PO ONCE PRN PRN Reason: Hypoglycemia Stop: 08/17/17 18:19 Haloperidol Lactate (Haldol) 1 mg IM Q12HR PRN PRN Reason: Anxiety Stop: 08/27/17 10:21 Last Admin: 02/25/17 10:44 Dose: 1 mg Heparin Sodium (Porcine) (Heparin) 5,000 unit SQ Q12HCO CHARLA Stop: 08/17/17 18:16 Last Admin: 02/27/17 05:32 Dose: 5,000 unit Hydralazine HCl (Hydralazine) 10 mg IVP Q6HR PRN PRN Reason: Hypertension Stop: 08/26/17 15:23 Last Admin: 02/26/17 05:18 Dose: 10 mg Dextrose (Dextrose 5%) 1,000 mls @ 100 mls/hr IVC .Q10H PRN PRN Reason: HYPOGLYCEMIA Stop: 08/17/17 18:19 Fat Emulsion Intravenous (Intralipid 20%) 250 mls @ 21 mls/hr IVPB DAILY@1700 CHARLA Stop: 08/22/17 17:01 Last Infusion: 02/26/17 00:00 Dose: 0 mls/hr Piperacillin Sod/Tazobactam (Sod 3.375 gm/ Dextrose) 100 mls @ 25 mls/hr IVPB Q8HR CHARLA PRN Reason: Protocol Stop: 08/27/17 16:01 Last Admin: 02/27/17 08:34 Dose: 25 mls/hr Dextrose/Sodium Chloride (D5% And 0.45% Nacl 1000 Ml Bag) 1,000 mls @ 80 mls/ hr IVC .[id number] [facility] Stop: 08/28/17 15:47 Last Admin: 02/27/17 03:25 Dose: 80 mls/hr Vancomycin HCl 1,000 mg/ (Dextrose) 250 mls @ 167 mls/hr IVPB Q24H CHARLA PRN Reason: Protocol Stop: 08/27/17 16:01 Last Infusion: 02/27/17 10:12 Dose: Infused Insulin Human Lispro (Humalog) 0 units SQ Q6HR CHARLA PRN Reason: Protocol Stop: 08/18/17 00:01 Last Admin: 02/27/17 11:55 Dose: Not Given Metoprolol Tartrate (Lopressor) 5 mg IVP Q6HR PRN PRN Reason: Tachyarrhythmias Stop: 08/29/17 08:26 Morphine Sulfate (Morphine Sulfate) 1 mg IVP Q3H PRN PRN Reason: Pain Stop: 08/26/17 16:07 Last Admin: 02/27/17 09:50 Dose: 1 mg Naloxone HCl (Narcan) 0.4 mg IVP Q2MIN PRN PRN Reason: Opioid Reversal Stop: 08/17/17 17:34 Ondansetron HCl (Zofran) 4 mg IVP Q6HR PRN; Protocol PRN Reason: Nausea And Vomiting Stop: 08/17/17 17:34 Pantoprazole Sodium (Protonix) 40 mg IVPB DAILY [facility] Stop: 08/17/17 17:46 Last Admin: 02/27/17 08:33 Dose: 40 mg - Imaging and Cardiology Chest Xray: report reviewed Echo: pending - EKG Interpretation EKG results cardiology: personally reviewed (ECG from this morning showed A. fib with RVR), other (Telemetry strips reviewed with occasional episodes of atrial flutter with RVR and currently on telemetry sinus rhythm with frequent PACs and what appears to be multifocal atrial tachycardia) Consult Discharge Plan - Plan Referrals: Ash Dumont MD [Partnered Physician] - (SENT WEB REQUEST ON 02-27-17 @ [id number]) <Sabrina Irizarry - Last Filed: 02/27/17 14:13> Date of Encounter: 02/27/17 Assessment and Plan Discussion w patient/family: The assessment and plan as outlined above was discussed with the patient and/or family members who expressed understanding and agreement. All questions were answered. Thank you for involving us in the care of your patient. Please call with any questions. History of Present Illness History of present illness: Ms. Mcneil is a 62 year old female All Systems Review: A 10-system review of systems was performed and is negative for pertinent findings except as documented above in the HPI. Physical Examination Vital Signs, Last 4 Hours Temp Pulse Resp BP Pulse Ox 02/27/17 11:48 98.6 F 108 16 118/75 98 Results 02/27/17 06:21 02/27/17 06:21 Lab Results 02/27/17 02/27/17 06:21 06:21 WBC 17.5 H Hgb 12.2 Hct 36.4 Plt Count 428 H Sodium 144 Potassium 3.9 D Chloride 111 H Carbon Dioxide 25 BUN 35 H D Creatinine 1.37 H Glucose 101 H Calcium 9.3 - Attending Attestation I examined this patient and my medical decision-making was reviewed with the RAMP AGENT/PA/Advanced Practice Nurse/Resident Physician. I agree with the documented findings, disposition and treatment plan. Ms. Mcneil has MRDD and is accompanied by her Mother. She has developed post procedure AFIB and is demonstrating periods of atrial tachycardia, possibly multifocal. Recommend echo for a review of structure/function and scheduled IV lopressor until able to tolerate PO. Will check Mag and TSH. Will need to address long-term anticoagulation with her Mother.
[2017-02-27] MEDS: *HR* Metoprolol 5 MG/5 ML VIAL IVP SCH ×2 (14:52→20:35)
[2017-02-27 15:17] LABS: Magnesium 1.2 mg/dL (1.6-2.6)
[2017-02-27] MEDS: Vancomycin 1,000 MG in D5% in Water 250 ML IVPB SCH (15:58)
[2017-02-27] MEDS ORDERED: Clinimix E 5%-15% SOLUTION 2,000 ML with MVI, adult with vitamin K 10 ML IVC SCH (17:00)
[2017-02-27] MEDS ORDERED: Magnesium Sulfate 2 GM in D5% in Water 100 ML IVPB ONE (17:02)
[2017-02-28] MEDS: Insulin LISPRO 300 UNITS/3 ML VIAL SQ SCH ×4 (00:47→18:49)
[2017-02-28] MEDS: Piperacillin/Tazobactam 3.375 GM in D5% in Water (Mini-Bag+) 100 ML IVPB SCH ×4 (00:48→23:49)
[2017-02-28] MEDS: *HR* Metoprolol 5 MG/5 ML VIAL IVP SCH ×5 (01:49→21:10)
[2017-02-28 04:21] LABS: Basophils # 0.1 K/mcL (0.0-0.2); Basophils % 0.3 %; Eosinophils # 0.4 K/mcL (0.0-0.6); Eosinophils % 2.8 %; Hematocrit 35.3 % (35.3-44.9); Hemoglobin 11.4 g/dL (11.5-15.4); Immature Granulocytes % 0.8 % (0-4); Lymphocytes # 1.1 K/mcL (0.6-4.6); Lymphocytes % 6.9 %; Mean Corpuscular HGB Conc 32.3 g/dL (31.6-35.5); Mean Corpuscular Hemoglobin 29.9 pg (28.0-33.3); Mean Corpuscular Volume 92.7 fL (83.0-100.0); Mean Platelet Volume 9.7 fL (9.4-12.4); Monocytes # 0.8 K/mcL (0.0-1.3); Monocytes % 5.2 %; Neutrophils # 12.7 K/mcL (1.6-8.9); Platelet Count 413 K/mcL (140-400); Red Blood Count 3.81 M/mcL (3.82-4.97)
[2017-02-28 04:27] LABS: Magnesium 1.6 mg/dL (1.6-2.6)
[2017-02-28] MEDS: *HR* Heparin 5,000 UNIT/ML VIAL SQ SCH ×2 (06:14→18:36)
[2017-02-28] MEDS: Pantoprazole 40 MG VIAL IVPB SCH (09:02)
[2017-02-28] MEDS: Chlorhexidine Rinse 15 ML MOUTHWASH MM SCH (09:03)
[2017-02-28 09:10] LABS: Thyroid Stimulating Hormone 3.88 mcIU/mL (0.350-4.840)
[2017-02-28 09:22] LABS: Calcium 8.9 mg/dL (8.6-10.8); Potassium 3.5 mEq/L (3.5-4.5)
--- NOTE | 2017-02-28 09:45 | General Surgery Progress Note ---
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 Barnes. 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 Barnes. POD #8 from peg tube placement (3) Atrial fibrillation Current Visit: Yes Status: Acute Cardiology following for recommendations Qualifiers: Atrial fibrillation type: unspecified Qualified Code(s): I48.91 - Unspecified atrial fibrillation (4) Mental retardation Current Visit: Yes Status: Chronic (5) Pneumonia Current Visit: Yes Status: Acute IV antibiotics- Zosyn Leukocytosis improved today 17.5>15.1 Qualifiers: Pneumonia type: aspiration pneumonia Aspiration pneumonia type: due to gastric secretions Laterality: left Lung location: lower lobe of lung Qualified Code(s): J69.0 - Pneumonitis due to inhalation of food and vomit (6) Acute kidney injury Current Visit: Yes Status: Acute Stable Cr- 1.37>1.35 Stern to SD for strict I&Os Avoid nephrotoxic medications (7) DVT prophylaxis Current Visit: Yes Status: Acute Heparin 5,000 units SQ twice daily for DVT prophylaxis EPCDs to bilateral lower extremities for DVT prophylaxis Subjective Patient reports: no new complaints, bowel movement (02/26/17), afebrile, other ( Patient resting comfortably and in no acute distress) Objective Vital Signs - Last 8 Hours Temp Pulse Resp BP Pulse Ox 02/28/17 06:54 97.7 F 87 16 132/86 97 02/28/17 05:03 80 18 96 02/28/17 04:18 98.2 F 84 18 123/77 96 02/28/17 02:26 108 18 99 Intake and Output 02/27/17 02/28/17 02/28/17 23:59 07:59 15:59 Intake Total 100 / 100 100 / 100 Output Total 1000 / 1000 1190 / 1190 Balance -900 / -900 -1090 / -1090 Intake: IV Fluids 100 / 100 100 / 100 Zosyn 3.375 GM In 100 / 100 100 / 100 Dextrose 5% (Minibag+) 100 ML 100 ML @ 25 mls/hr IVPB Q8HR [facility] Rx#: [id number] Oral 0 / 0 Output: Catheter 1000 / 1000 800 / 800 Gastric Drainage 390 / 390 Other: Meal Dinner Percent of Meal Consumed 0% Weight 61.4 kg Blood Glucose* 98 104 Patient Weight 02/28/17 23:59 Weight 61.4 kg - General physical appearance well developed, no distress, chronically ill - Eyes normal ocular movement - ENT dry mucosa, atraumatic, normocephalic - Neck Neck exam: trachea midline - Respiratory normal respiratory effort, clear to auscultation, other (diminished bibasilar bases) - Cardiovascular Cardiovascular exam: Present: irregular rhythm - Abdomen Abdomen: Present: bowel sounds present, soft, tender (expected post-operative tenderness), wound (Peg tube secure to gravity drain with bilious drainage noted (390ml noted since midnight)) - Genitourinary other (stern catheter to SD with clear, yellow urine noted (800ml noted since midnight)) - Neurologic CN 2-12 grossly intact - Psychiatric other (Patient MRDD- difficult to assess orientation, responds to simple yes/no questions) - Labs 03/01/17 05:57 03/01/17 04:53 Diabetes panel 02/28/17 Range/Units 04:09 Sodium 142 (136-145) mEq/L Potassium 3.5 (3.5-4.5) mEq/L Chloride 110 H (98-109) mEq/L Carbon Dioxide 25 (19-29) mEq/L BUN 26 H (7-20) mg/dL Creatinine 1.35 H (0.57-1.11) mg/dL Glucose 104 H (70-99) mg/dL Calcium 8.9 (8.6-10.8) mg/dL Thyroid panel 02/27/17 Range/Units 14:36 TSH 3.880 (0.350-4.840) mcIU/mL Calcium panel 02/28/17 Range/Units 04:09 Calcium 8.9 (8.6-10.8) mg/dL Pituitary panel 02/27/17 02/28/17 Range/Units 14:36 04:09 Sodium 142 (136-145) mEq/L Potassium 3.5 (3.5-4.5) mEq/L Chloride 110 H (98-109) mEq/L Carbon Dioxide 25 (19-29) mEq/L BUN 26 H (7-20) mg/dL Creatinine 1.35 H (0.57-1.11) mg/dL Glucose 104 H (70-99) mg/dL Calcium 8.9 (8.6-10.8) mg/dL TSH 3.880 (0.350-4.840) mcIU/mL Adrenal panel 02/28/17 Range/Units 04:09 Sodium 142 (136-145) mEq/L Potassium 3.5 (3.5-4.5) mEq/L Chloride 110 H (98-109) mEq/L Carbon Dioxide 25 (19-29) mEq/L BUN 26 H (7-20) mg/dL Creatinine 1.35 H (0.57-1.11) mg/dL Glucose 104 H (70-99) mg/dL Calcium 8.9 (8.6-10.8) mg/dL - VTE Documentation of Mechanical Device: Intermittent pneumatic compression device Consult Discharge Plan - Plan Referrals: Ash Dumont MD [Partnered Physician] - 03/06/17 1:30 pm () - Attending Attestation I examined this patient and my medical decision-making was reviewed with the CALL WORKER/PA/Advanced Practice Nurse/Resident Physician. I agree with the documented findings, disposition and treatment plan as described except to the extent set forth below. The patient seen and evaluated. There is no evidence of staple line leak. We can reinstitute PEG tube feedings. Dane Barnes MD FACS
--- NOTE | 2017-02-28 10:43 | Cardiology Progress Note ---
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 Barnes. Management per primary service and hospitalist team. (2) Atrial fibrillation Current Visit: Yes Status: Acute Per Cardiology: Mother reports no known past history of atrial fibrillation. Noted to have A. fib with RVR this morning and reported A. fib with RVR upon arrival through this hospitalization. Episodes of atrial flutter noted on telemetry. Occurring in setting of recent surgery for small bowel obstruction, acute kidney injury, and pneumonia. On IV Lopressor 5 mg q6hrs. Telemetry with average heart rate 99 the past 12 hours, currently sinus rhythm in the 60s. Her discussing with nurse , pending by mouth intake today. Continue with IV Lopressor until able to take by mouth beta erickson. Echo showed grossly normal EF with mild TR. Magnesium noted to be low at 1.2 and has been replaced. TSH stable. Regarding long-term anticoagulation, currently on subcutaneous heparin. We'll need to address long-term anticoagulation, however suspect patient would not be a good candidate due to multiple comorbid conditions and has MRDD.he is DNR/CCA. Qualifiers: Atrial fibrillation type: unspecified Qualified Code(s): I48.91 - Unspecified atrial fibrillation (3) DEBORAH (acute kidney injury) Current Visit: Yes Status: Acute Per Cardiology: Presented with apparent DEBORAH. Appears to be improving. (4) Mental retardation Current Visit: Yes Status: Chronic Per Cardiology: Hx of MRDD, mother is POA. (5) Pneumonia Current Visit: Yes Status: Acute Per Cardiology: Management per primary service. Qualifiers: Pneumonia type: aspiration pneumonia Aspiration pneumonia type: due to gastric secretions Laterality: left Lung location: lower lobe of lung Qualified Code(s): J69.0 - Pneumonitis due to inhalation of food and vomit Discussion w patient/family: The assessment and plan as outlined above was discussed with the patient and/or family members who expressed understanding and agreement. All questions were answered. Thank you for involving us in the care of your patient. Please call with any questions. Subjective Principal diagnosis: SBO Interval history: No family currently present at bedside. Patient would not answer any questions other responding "no". Objective Vital Signs, Last 4 Hours Temp Pulse Resp BP Pulse Ox 02/28/17 09:27 69 02/28/17 06:54 97.7 F 87 16 132/86 97 General: No Apparent Distress, Other (Patient refused exam however she diod allow me to listen to heart and check for edema) Cardiac: Reg Rate and Rhythm, Normal S1 and S2 Extremities: No Edema Results 02/28/17 04:09 02/28/17 04:09 Lab Results Laboratory Tests 02/27/17 02/28/17 14:36 04:09 Creatinine 1.35 H Est GFR (Non-Af Amer) 40 L Magnesium 1.2 L 1.6 TSH 3.880 Active Medications Chlorhexidine Gluconate (Chlorhexidine Rinse) 15 ml MM BID [facility] Stop: 08/19/17 21:01 Last Admin: 02/28/17 09:03 Dose: Not Given Dextrose/Water (Dextrose 50% (Syg)) 25 ml IVP AD PRN PRN Reason: Hypoglycemia Stop: 08/17/17 18:19 Glucagon (Glucagen) 1 mg IM ONCE PRN PRN Reason: Hypoglycemia Stop: 08/17/17 18:19 Glucose (Gluctose) 15 gm PO ONCE PRN PRN Reason: Hypoglycemia Stop: 08/17/17 18:19 Glucose (Gluctose) 30 gm PO ONCE PRN PRN Reason: Hypoglycemia Stop: 08/17/17 18:19 Haloperidol Lactate (Haldol) 1 mg IM Q12HR PRN PRN Reason: Anxiety Stop: 08/27/17 10:21 Last Admin: 02/25/17 10:44 Dose: 1 mg Heparin Sodium (Porcine) (Heparin) 5,000 unit SQ Q12HCO [facility] Stop: 08/17/17 18:16 Last Admin: 02/28/17 06:14 Dose: 5,000 unit Hydralazine HCl (Hydralazine) 10 mg IVP Q6HR PRN PRN Reason: Hypertension Stop: 08/26/17 15:23 Last Admin: 02/26/17 05:18 Dose: 10 mg Dextrose (Dextrose 5%) 1,000 mls @ 100 mls/hr IVC .Q10H PRN PRN Reason: HYPOGLYCEMIA Stop: 08/17/17 18:19 Fat Emulsion Intravenous (Intralipid 20%) 250 mls @ 21 mls/hr IVPB DAILY@1700 [facility] Stop: 08/22/17 17:01 Last Infusion: 02/26/17 00:00 Dose: 0 mls/hr Piperacillin Sod/Tazobactam (Sod 3.375 gm/ Dextrose) 100 mls @ 25 mls/hr IVPB Q8HR [facility] PRN Reason: Protocol Stop: 08/27/17 16:01 Last Admin: 02/28/17 09:00 Dose: 25 mls/hr Dextrose/Sodium Chloride (D5% And 0.45% Nacl 1000 Ml Bag) 1,000 mls @ 80 mls/ hr IVC .[id number] [facility] Stop: 08/28/17 15:47 Last Admin: 02/27/17 14:58 Dose: 80 mls/hr Vancomycin HCl 1,000 mg/ (Dextrose) 250 mls @ 167 mls/hr IVPB Q24H [facility] PRN Reason: Protocol Stop: 08/27/17 16:01 Last Admin: 02/27/17 15:58 Dose: 167 mls/hr Insulin Human Lispro (Humalog) 0 units SQ Q6HR [facility] PRN Reason: Protocol Stop: 08/18/17 00:01 Last Admin: 02/28/17 06:14 Dose: Not Given Metoprolol Tartrate (Lopressor) 5 mg IVP Q6H [facility] Stop: 08/29/17 13:40 Last Admin: 02/28/17 09:02 Dose: 5 mg Morphine Sulfate (Morphine Sulfate) 1 mg IVP Q3H PRN PRN Reason: Pain Stop: 08/26/17 16:07 Last Admin: 02/27/17 09:50 Dose: 1 mg Naloxone HCl (Narcan) 0.4 mg IVP Q2MIN PRN PRN Reason: Opioid Reversal Stop: 08/17/17 17:34 Ondansetron HCl (Zofran) 4 mg IVP Q6HR PRN; Protocol PRN Reason: Nausea And Vomiting Stop: 08/17/17 17:34 Pantoprazole Sodium (Protonix) 40 mg IVPB DAILY [facility] Stop: 08/17/17 17:46 Last Admin: 02/28/17 09:02 Dose: 40 mg - Imaging and Cardiology Echo: report reviewed - EKG Interpretation EKG results cardiology: other (Telemetry reviewed with average heart rate the past 12 hours 99, currently heart rate sinus rhythm in the 60s.) - VTE Documentation of Mechanical Device: Intermittent pneumatic compression device Consult Discharge Plan - Plan Referrals: Ash Dumont MD [Partnered Physician] - (SENT WEB REQUEST ON 02-27-17 @ 1560)
--- NOTE | 2017-02-28 12:17 | Internal Med Progress Note ---
Date of Encounter: 02/28/17 Time of Encounter: 12:16 - Assessment and plan (1) DEBORAH (acute kidney injury) Current Visit: Yes Status: Acute Assessment and plan: Renal function remains stable with creatinine of 1.35-1.37. Continue IV hydration. Follow renal function closely and dose medications renally. (2) Anxiety Current Visit: Yes Status: Chronic Assessment and plan: Continue ativan prn, no po meds for now (3) Atrial fibrillation Current Visit: Yes Status: Acute Assessment and plan: Afib responded to lopressor IV, continue same IV for now Will transition to oral when PEG tube is ready for use. Cardiology evaluation appreciated. Echo showed grossly normal EF with mild TR. Not ideal candidate for anticoagulation Qualifiers: Atrial fibrillation type: unspecified Qualified Code(s): I48.91 - Unspecified atrial fibrillation (4) Gastric necrosis Current Visit: Yes Status: Acute Assessment and plan: POD 11, POD 8 respectively for gastric resection and PEG tube placement Patient did not tolerate TPN Continue trickle bolus feeds per nutrition (5) Pneumonia Current Visit: Yes Status: Acute Assessment and plan: Likely aspiration pneumonia. ON Zosyn and Vanco. Leukocytosis and thrombocytosis possibly from reactive leukocytosis, but both improving Continue current regimen of antibiotics, continue to monitor blood counts, no obvious source of infection at this time. Low threshold for repeat blood cultures High-risk due to use of vancomycin Qualifiers: Pneumonia type: aspiration pneumonia Aspiration pneumonia type: due to gastric secretions Laterality: left Lung location: lower lobe of lung Qualified Code(s): J69.0 - Pneumonitis due to inhalation of food and vomit (6) Small bowel obstruction Current Visit: Yes Status: Acute Assessment and plan: Management per surgery (7) Mental retardation Current Visit: Yes Status: Chronic Assessment and plan: Chronic stable - Subjective Interval history: Seen and evaluated at bedside 62 F POD 11 for ex-lap, POD 8 fro PEG tube placement No new events as per her mum HR controlled on lopressor - Constitutional Vitals: Temp Pulse Resp BP Pulse Ox 98.6 F 74 18 134/75 99 02/28/17 11:07 02/28/17 11:07 02/28/17 11:07 02/28/17 11:07 02/28/17 11:07 General appearance: Present: A&O X 0, no acute distress, underweight, answers questions appropriately. Absent: cooperative - Head Head exam: Present: atraumatic, normocephalic - Eye Eye exam: Present: PERRL, conjuntiva pink, sclera anicteric Pupils: Present: PERRL - Neck Neck exam general surgery: Present: supple, trachea midline. Absent: lymphadenopathy - Respiratory Respiratory exam: Present: CTAB. Absent: accessory muscle use, rales, rhonchi, wheezes - Cardiovascular Cardiovascular exam: Present: RRR, +S1, +S2. Absent: diastolic murmur, gallop, rubs, systolic murmur - GI/Abdominal Additional comments: midline wound well apposed, no surrounding erythema or dicharge, PEG tube connected to gravity, draining greenish fluid, BS present - Extremities Exam Extremities exam: Present: warm, radial pulses palpable and symetrical. Absent : calf tenderness, cyanotic, pedal edema - Neurological Exam Neurological exam: Present: alert, CN II-XII intact, no focal deficits. Absent : oriented X3, pronater drift, facial droop, speech deficit - Skin Skin exam: Present: dry, intact Internal Medicine: Result - Labs CBC & Chem 7: 02/28/17 04:09 02/28/17 04:09 Labs: Short CBC 02/28/17 Range/Units 04:09 WBC 15.1 H (4.3-11.1) K/mcL Hgb 11.4 L (11.5-15.4) g/dL Hct 35.3 (35.3-44.9) % Plt Count 413 H (140-400) K/mcL Neutrophils # 12.7 H (1.6-8.9) K/mcL BMP 02/28/17 04:09 Sodium 142 Potassium 3.5 Chloride 110 H Carbon Dioxide 25 BUN 26 H Creatinine 1.35 H Glucose 104 H Calcium 8.9 - ABG Interpretation ABG results: ABG ABG pH 7.31 pH Units (7.32-7.45) L 02/22/17 04:51 ABG pCO2 36 mmHg (35-45) 02/22/17 04:51 ABG pO2 122 mmHg (85-104) H 02/22/17 04:51 ABG O2 Saturation 98 % (95-98) 02/22/17 04:51 PT/INR, D-dimer PT 13.1 Seconds (9.4-12.1) H 02/18/17 10:30 - VTE Documentation of Mechanical Device: Intermittent pneumatic compression device Consult Discharge Plan - Plan Referrals: Ash Dumont MD [Partnered Physician] - (SENT WEB REQUEST ON 02-27-17 @ 8630)
[2017-02-28] MEDS: D5% in 0.45% NACL 1,000 ML IVC SCH (17:31)
--- NOTE | 2017-02-28 17:38 | Electrocardiograph Report ---
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
--- NOTE | 2017-02-28 18:15 | Electrocardiograph Report ---
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
[2017-02-28] MEDS: Vancomycin 1,000 MG in D5% in Water 250 ML IVPB SCH (18:34)
[2017-03-01] MEDS: Insulin LISPRO 300 UNITS/3 ML VIAL SQ SCH ×3 (00:15→13:32)
[2017-03-01] MEDS: *HR* Metoprolol 5 MG/5 ML VIAL IVP SCH ×3 (02:51→07:58)
[2017-03-01 05:38] LABS: BUN/Creatinine Ratio 17 (6-26); Blood Urea Nitrogen 19 mg/dL (7-20); Calcium 8.7 mg/dL (8.6-10.8); Carbon Dioxide 19 mEq/L (19-29); Chloride 112 mEq/L (98-109); Glucose 103 mg/dL (70-99); Osmolality,Calculated 291 (280-300); Potassium 3.4 mEq/L (3.5-4.5); Sodium 139 mEq/L (136-145); eGFR For African Americans > 60 (> 60); eGFR For Non-African Americans 51 (> 60)
[2017-03-01] MEDS: *HR* Heparin 5,000 UNIT/ML VIAL SQ SCH ×2 (05:43→17:09)
[2017-03-01 06:09] LABS: Basophils # 0.1 K/mcL (0.0-0.2); Basophils % 0.3 %; Eosinophils # 0.3 K/mcL (0.0-0.6); Eosinophils % 1.7 %; Hematocrit 34.2 % (35.3-44.9); Hemoglobin 11.5 g/dL (11.5-15.4); Immature Granulocytes % 0.8 % (0-4); Immature Platelets 3.9 % (1.1-6.1); Lymphocytes % 6.9 %; Mean Corpuscular HGB Conc 33.6 g/dL (31.6-35.5); Mean Corpuscular Hemoglobin 30.5 pg (28.0-33.3); Mean Corpuscular Volume 90.7 fL (83.0-100.0); Mean Platelet Volume 9.9 fL (9.4-12.4); Monocytes # 0.6 K/mcL (0.0-1.3); Monocytes % 4.2 %; Neutrophils # 12.8 K/mcL (1.6-8.9); Platelet Count 440 K/mcL (140-400); Red Blood Count 3.77 M/mcL (3.82-4.97); Red Cell Distribution Width 14.6 % (11.5-14.5); Segmented Neutrophils % 86.1 %
--- NOTE | 2017-03-01 07:29 | General Surgery Progress Note ---
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 Barnes. Complications during surgery include two episodes of hypotension that responded to Hammad-Synephrine drip. 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 Subtotal gastrectomy with staple to the end of the esophagus for modified sleeve resection to ensure gastrointestinal continuity. Staple line demonstrated some visible black necrotic mucosa however seromuscular layer appeared viable. EGD with PEG tube placement 02/20/[address] Barnes. PEG site clean, dry. 225 ml gastric drainage. PEG tube to Vela bag for ventilation and to equalize pressure off staple line. Plan: -Continue trickle feeds to goal per soap grinder -Continue supportive care -IV antibiotics -Daily wound care -Repeat AM labs -Surgery will continue to follow (2) Gastric necrosis Current Visit: Yes Status: Acute As above. (3) Mental retardation Current Visit: Yes Status: Chronic (4) DVT prophylaxis Current Visit: Yes Status: Acute The assessment and plan as outlined above was discussed with the patient and/or family members who expressed understanding and agreement. All questions were answered. Continue EPCDs to bilateral lower extremities for DVT prophylaxis Subjective Patient reports: feels better, pain is less, flatus, bowel movement, afebrile Narrative: The patient was seen and examined. Patient is communicating verbally today again states she has no belly pain. Slow trickle feeds are in place. Patient appears comfortable. We will continue trickle feeds to goal per dietitian. Objective Vital Signs - Last 8 Hours Temp Pulse Resp BP Pulse Ox 03/01/17 05:00 58 16 129/80 96 03/01/17 03:34 98.2 F 90 15 139/113 95 03/01/17 02:52 48 18 136/82 02/28/17 23:50 98.7 F 95 17 141/85 94 Intake and Output 02/28/17 02/28/17 03/01/17 15:59 23:59 07:59 Intake Total 100 / 100 100 / 100 883 / 883 Output Total 275 / 275 300 / 300 500 / 500 Balance -175 / -175 -200 / -200 383 / 383 Intake: IV Fluids 100 / 100 100 / 100 823 / 823 D5% And 0.45% Nacl 1000 723 / 723 Ml Bag 1,000 ML @ 80 mls/ hr IVC .[id number] [facility] Rx#: [id number] Zosyn 3.375 GM In 100 / 100 100 / 100 100 / 100 Dextrose 5% (Minibag+) 100 ML 100 ML @ 25 mls/hr IVPB Q8HR [facility] Rx#: [id number] Oral 0 / 0 Tube Feeding 60 / 60 Free Water Intake Amount 0 / 0 0 / 0 Output: Urine 0 / 0 Catheter 225 / 225 300 / 300 500 / 500 Gastric Drainage 50 / 50 Other: Weight 58 kg Blood Glucose* 90 77 119 Patient Weight 03/01/17 23:59 Weight 58 kg - General physical appearance no distress, no pain, cachectic, chronically ill - Eyes PERRL, normal ocular movement - ENT dry mucosa, atraumatic, CN 2-12 grossly intact - Neck Neck exam: trachea midline - Respiratory normal expansion, normal respiratory effort wheezing: bilateral - Cardiovascular Cardiovascular exam: Present: irregular rhythm. Absent: JVD - Abdomen Abdomen: Present: bowel sounds present, soft, non tender - Incision Incision: Present: clean and dry, intact - Integumentary no rash, no growths, no abnormal pigmentation - Labs 03/01/17 05:57 03/01/17 04:53 Diabetes panel 02/28/17 03/01/17 Range/Units 04:09 04:53 Sodium 142 139 (136-145) mEq/L Potassium 3.5 3.4 L (3.5-4.5) mEq/L Chloride 110 H 112 H (98-109) mEq/L Carbon Dioxide 25 19 (19-29) mEq/L BUN 26 H 19 (7-20) mg/dL Creatinine 1.35 H 1.10 (0.57-1.11) mg/dL Glucose 104 H 103 H (70-99) mg/dL Calcium 8.9 8.7 (8.6-10.8) mg/dL Thyroid panel 02/27/17 Range/Units 14:36 TSH 3.880 (0.350-4.840) mcIU/mL Calcium panel 02/28/17 03/01/17 Range/Units 04:09 04:53 Calcium 8.9 8.7 (8.6-10.8) mg/dL Pituitary panel 02/27/17 02/28/17 03/01/17 Range/Units 14:36 04:09 04:53 Sodium 142 139 (136-145) mEq/L Potassium 3.5 3.4 L (3.5-4.5) mEq/L Chloride 110 H 112 H (98-109) mEq/L Carbon Dioxide 25 19 (19-29) mEq/L BUN 26 H 19 (7-20) mg/dL Creatinine 1.35 H 1.10 (0.57-1.11) mg/dL Glucose 104 H 103 H (70-99) mg/dL Calcium 8.9 8.7 (8.6-10.8) mg/dL TSH 3.880 (0.350-4.840) mcIU/mL Adrenal panel 02/28/17 03/01/17 Range/Units 04:09 04:53 Sodium 142 139 (136-145) mEq/L Potassium 3.5 3.4 L (3.5-4.5) mEq/L Chloride 110 H 112 H (98-109) mEq/L Carbon Dioxide 25 19 (19-29) mEq/L BUN 26 H 19 (7-20) mg/dL Creatinine 1.35 H 1.10 (0.57-1.11) mg/dL Glucose 104 H 103 H (70-99) mg/dL Calcium 8.9 8.7 (8.6-10.8) mg/dL - VTE Documentation of Mechanical Device: Intermittent pneumatic compression device Consult Discharge Plan - Plan Referrals: Ash Dumont MD [Partnered Physician] - 03/06/17 1:30 pm () - Attending Attestation I examined this patient and my medical decision-making was reviewed with the ASP NET DEVELOPER/PA/Advanced Practice Nurse/Resident Physician. I agree with the documented findings, disposition and treatment plan as described except to the extent set forth below. The patient is seen in the evaluated. She is tolerating her tube feedings. Continue to advance tube feedings to goal rate Dane Barnes MD FACS
--- NOTE | 2017-03-01 08:58 | Internal Med Progress Note ---
Date of Encounter: 03/01/17 Time of Encounter: 08:56 - Assessment and plan (1) DEBORAH (acute kidney injury) Current Visit: Yes Status: Acute Assessment and plan: Renal function remains stable with creatinine of 1.35-1.37. Continue IV hydration. Patient has been started on feeds, when tolerated, will d/c IVF and start free water flushes. Follow renal function closely and dose medications renally. (2) Anxiety Current Visit: Yes Status: Chronic Assessment and plan: Continue ativan prn, no po meds for now (3) Atrial fibrillation Current Visit: Yes Status: Acute Assessment and plan: Afib responded to lopressor IV, continue same IV for now Plan to change to oral as feeding continues HR is controlled, BP is acceptable Cardiology evaluation appreciated. Echo showed grossly normal EF with mild TR. Not ideal candidate for anticoagulation Qualifiers: Atrial fibrillation type: unspecified Qualified Code(s): I48.91 - Unspecified atrial fibrillation (4) Gastric necrosis Current Visit: Yes Status: Acute Assessment and plan: POD 12, POD 9 respectively for gastric resection and PEG tube placement Patient did not tolerate TPN Continue trickle bolus feeds per nutrition (5) Pneumonia Current Visit: Yes Status: Acute Assessment and plan: Likely aspiration pneumonia. ON Zosyn and Vanco-Day 5. Leukocytosis and thrombocytosis improving Continue current regimen of antibiotics, continue to monitor blood counts, Follow Vanco trough High-risk due to use of vancomycin Qualifiers: Pneumonia type: aspiration pneumonia Aspiration pneumonia type: due to gastric secretions Laterality: left Lung location: lower lobe of lung Qualified Code(s): J69.0 - Pneumonitis due to inhalation of food and vomit (6) Small bowel obstruction Current Visit: Yes Status: Resolved Assessment and plan: Management per surgery (7) Mental retardation Current Visit: Yes Status: Chronic Assessment and plan: Chronic stable (8) Hypokalemia Current Visit: Yes Status: Acute Assessment and plan: replaced, continue to monitor - Subjective Interval history: Seen and evaluated at bedside 62 F POD 12 for ex-lap, POD 9 fro PEG tube placement Started on feeds yesterday No untoward events Day 5 of Zosyn and Vanco for Aspiration pneumonia, Renal function stable - Constitutional Vitals: Temp Pulse Resp BP Pulse Ox 98.4 F 52 16 143/84 95 03/01/17 07:33 03/01/17 07:57 03/01/17 07:33 03/01/17 07:33 03/01/17 07:33 General appearance: Present: A&O X 0, no acute distress, underweight, answers questions appropriately. Absent: cooperative - Head Head exam: Present: atraumatic, normocephalic - Eye Eye exam: Present: PERRL, conjuntiva pink, sclera anicteric Pupils: Present: PERRL - Neck Neck exam general surgery: Present: supple, trachea midline. Absent: lymphadenopathy - Respiratory Respiratory exam: Present: CTAB. Absent: accessory muscle use, rales, rhonchi, wheezes - Cardiovascular Cardiovascular exam: Present: RRR (Missed beats , regularly irregular), +S1, + S2. Absent: diastolic murmur, gallop, rubs, systolic murmur - GI/Abdominal GI/Abdominal exam: Present: normal bowel sounds, soft, no peritoneal signs. Absent: distended, tenderness Additional comments: Midline incision with josh clean and dry. PEG tube site clean and dry - Extremities Exam Extremities exam: Present: warm, radial pulses palpable and symetrical. Absent : calf tenderness, cyanotic, pedal edema - Neurological Exam Neurological exam: Present: alert, CN II-XII intact, no focal deficits, speech deficit (Due to MRDD). Absent: oriented X3, pronater drift, facial droop - Skin Skin exam: Present: dry, intact Internal Medicine: Result - Labs CBC & Chem 7: 03/01/17 05:57 03/01/17 04:53 Labs: Short CBC 03/01/17 Range/Units 05:57 WBC 14.9 H (4.3-11.1) K/mcL Hgb 11.5 (11.5-15.4) g/dL Hct 34.2 L (35.3-44.9) % Plt Count 440 H (140-400) K/mcL Neutrophils # 12.8 H (1.6-8.9) K/mcL BMP 02/28/17 03/01/17 04:09 04:53 Sodium 142 139 Potassium 3.5 3.4 L Chloride 110 H 112 H Carbon Dioxide 25 19 BUN 26 H 19 Creatinine 1.35 H 1.10 Glucose 104 H 103 H Calcium 8.9 8.7 - ABG Interpretation ABG results: ABG ABG pH 7.31 pH Units (7.32-7.45) L 02/22/17 04:51 ABG pCO2 36 mmHg (35-45) 02/22/17 04:51 ABG pO2 122 mmHg (85-104) H 02/22/17 04:51 ABG O2 Saturation 98 % (95-98) 02/22/17 04:51 PT/INR, D-dimer PT 13.1 Seconds (9.4-12.1) H 02/18/17 10:30 - VTE Documentation of Mechanical Device: Intermittent pneumatic compression device Consult Discharge Plan - Plan Referrals: Ash Dumont MD [Partnered Physician] - 03/06/17 1:30 pm ()
[2017-03-01] MEDS ORDERED: *HR* Metoprolol 5 MG/5 ML VIAL IVP PRN (09:22)
[2017-03-01] MEDS: Piperacillin/Tazobactam 3.375 GM in D5% in Water (Mini-Bag+) 100 ML IVPB SCH ×3 (09:46→23:41)
[2017-03-01] MEDS: Pantoprazole 40 MG VIAL IVPB SCH (09:53)
[2017-03-01] MEDS: D5% in 0.45% NACL 1,000 ML IVC SCH ×2 (10:32→23:37)
[2017-03-01] MEDS ORDERED: hydrOXYzine pamoate 25 MG CAPSULE PO PRN (14:48)
[2017-03-01] MEDS: Vancomycin 750 MG in D5% in Water 250 ML IVPB SCH (17:08)
[2017-03-02] MEDS: *HR* Heparin 5,000 UNIT/ML VIAL SQ SCH ×2 (06:14→17:49)
--- NOTE | 2017-03-02 06:54 | General Surgery Progress Note ---
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 Barnes. Complications during surgery include two episodes of hypotension that responded to Hammad-Synephrine drip. 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 Subtotal gastrectomy with staple to the end of the esophagus for modified sleeve resection to ensure gastrointestinal continuity. Staple line demonstrated some visible black necrotic mucosa however seromuscular layer appeared viable. EGD with PEG tube placement 02/20/[address] Barnes. PEG site clean, dry. Plan: -Continue trickle feeds to goal per collection coordinator. Advance to 45 ml today. -Continue supportive care -IV antibiotics -Daily wound care -Repeat AM labs -Surgery will continue to follow (2) Gastric necrosis Current Visit: Yes Status: Acute As above. (3) Mental retardation Current Visit: Yes Status: Chronic (4) DVT prophylaxis Current Visit: Yes Status: Acute The assessment and plan as outlined above was discussed with the patient and/or family members who expressed understanding and agreement. All questions were answered. Subjective Patient reports: feels better, pain is less, flatus, bowel movement Narrative: The patient was seen and examined. Patient is resting comfortably sleeping on exam. Patient is tolerating her trickle feeds well will increase rate to 45 [place] today and continue trickle feeds to goal per dietitian. Objective Vital Signs - Last 8 Hours Temp Pulse Resp BP Pulse Ox 03/02/17 04:20 98.1 F 80 13 103/90 98 03/01/17 23:40 87 03/01/17 23:34 98.9 F 82 16 125/78 96 Intake and Output 03/01/17 03/01/17 03/02/17 15:59 23:59 07:59 Intake Total 512 / 512 1100 / 1100 0 / 0 Output Total 400 / 400 Balance 112 / 112 1100 / 1100 0 / 0 Intake: IV Fluids 477 / 477 1100 / 1100 D5% And 0.45% Nacl 1000 277 / 277 1000 / 1000 Ml Bag 1,000 ML @ 80 mls/ hr IVC .[id number] [facility] Rx#: [id number] Zosyn 3.375 GM In 100 / 100 100 / 100 Dextrose 5% (Minibag+) 100 ML 100 ML @ 25 mls/hr IVPB Q8HR [facility] Rx#: [id number] Potassium Chloride 10 mEq 100 / 100 /100mL 10 meq In 100 ml @ 100 mls/hr IVPB Q1H [facility] Rx#:[id number] Tube Feeding 35 / 35 Free Water Intake Amount 0 / 0 0 / 0 0 / 0 Output: Catheter 400 / 400 Other: Weight 59.5 kg Blood Glucose* 106 Patient Weight 03/02/17 23:59 Weight 59.5 kg - General physical appearance no distress, no pain, cachectic, chronically ill - Eyes normal ocular movement - ENT normal mucosa, atraumatic - Neck Neck exam: trachea midline - Respiratory normal expansion, normal respiratory effort, clear to auscultation - Cardiovascular Cardiovascular exam: Present: irregular rhythm, no murmurs/rubs/gallops - Abdomen Abdomen: Present: bowel sounds present, soft, non tender - Integumentary no abnormal pigmentation - Neurologic CN 2-12 grossly intact - Labs 03/03/17 03:29 03/03/17 03:29 - VTE Documentation of Mechanical Device: Intermittent pneumatic compression device Consult Discharge Plan - Plan Referrals: Ash Dumont MD [Partnered Physician] - (PATIENT IS GOING TO ECF, NO FOLLOW UP APPOINTMENT NEEDED) - Attending Attestation I examined this patient and my medical decision-making was reviewed with the CARGO SERVICES COORDINATOR/PA/Advanced Practice Nurse/Resident Physician. I agree with the documented findings, disposition and treatment plan as described except to the extent set forth below. The patient is seen and evaluated recurrence. The patient to is intact as is stable. We should be able to proceed with feedings Dane Barnes MD FACS
[2017-03-02] MEDS: Piperacillin/Tazobactam 3.375 GM in D5% in Water (Mini-Bag+) 100 ML IVPB SCH ×3 (07:35→23:56)
[2017-03-02] MEDS: Pantoprazole 40 MG VIAL IVPB SCH (07:35)
[2017-03-02 08:03] LABS: BUN/Creatinine Ratio 14 (6-26); Blood Urea Nitrogen 15 mg/dL (7-20); Calcium 8.7 mg/dL (8.6-10.8); Carbon Dioxide 23 mEq/L (19-29); Chloride 107 mEq/L (98-109); Glucose 111 mg/dL (70-99); Osmolality,Calculated 286 (280-300); Potassium 2.9 mEq/L (3.5-4.5); Sodium 137 mEq/L (136-145); eGFR For African Americans > 60 (> 60); eGFR For Non-African Americans 50 (> 60)
[2017-03-02] MEDS ORDERED: Potassium Chloride Elixir 20 MEQ/15 ML UDC GTUBE ONE (08:13)
[2017-03-02 08:14] LABS: Basophils % 0.3 %; Eosinophils % 1.5 %; Hematocrit 37.9 % (35.3-44.9); Hemoglobin 12.9 g/dL (11.5-15.4); Immature Granulocytes % 0.8 % (0-4); Lymphocytes % 8.3 %; Mean Corpuscular Hemoglobin 31.2 pg (28.0-33.3); Mean Corpuscular Volume 91.8 fL (83.0-100.0); Mean Platelet Volume 10.3 fL (9.4-12.4); Monocytes % 6.1 %; Platelet Count 378 K/mcL (140-400); Red Blood Count 4.13 M/mcL (3.82-4.97); Red Cell Distribution Width 14.7 % (11.5-14.5)
[2017-03-02 08:15] LABS: Basophils # 0.1 K/mcL (0.0-0.2); Eosinophils # 0.2 K/mcL (0.0-0.6); Lymphocytes # 1.2 K/mcL (0.6-4.6); Monocytes # 0.9 K/mcL (0.0-1.3)
--- NOTE | 2017-03-02 10:50 | Internal Med Progress Note ---
Date of Encounter: 03/02/17 Time of Encounter: 10:15 - Assessment and plan (1) DEBORAH (acute kidney injury) Current Visit: Yes Status: Acute Assessment and plan: Renal function remains stable with creatinine of 1.35-1.37. D/C IVF (2) Anxiety Current Visit: Yes Status: Chronic Assessment and plan: Continue ativan prn, no po meds for now (3) Atrial fibrillation Current Visit: Yes Status: Acute Assessment and plan: Afib responded to Lopressor Continue Lopressor by PEG tube Cardiology evaluation appreciated. Echo showed grossly normal EF with mild TR. Not ideal candidate for anticoagulation Qualifiers: Atrial fibrillation type: unspecified Qualified Code(s): I48.91 - Unspecified atrial fibrillation (4) Gastric necrosis Current Visit: Yes Status: Acute Assessment and plan: POD 13, POD 10 respectively for gastric resection and PEG tube placement Patient did not tolerate TPN Continue trickle bolus feeds per nutrition (5) Pneumonia Current Visit: Yes Status: Acute Assessment and plan: Likely aspiration pneumonia. ON Zosyn and Vanco-Day 6 Will complete 7 days and d/c Leukocytosis and thrombocytosis improving No cultures Follow Vanco trough High-risk due to use of vancomycin Qualifiers: Pneumonia type: aspiration pneumonia Aspiration pneumonia type: due to gastric secretions Laterality: left Lung location: lower lobe of lung Qualified Code(s): J69.0 - Pneumonitis due to inhalation of food and vomit (6) Small bowel obstruction Current Visit: Yes Status: Resolved Assessment and plan: Resolved, Management per surgery (7) Mental retardation Current Visit: Yes Status: Chronic Assessment and plan: Chronic stable (8) Hypokalemia Current Visit: Yes Status: Acute Assessment and plan: Replaced with 40mg via PEG and 40mg IV Repeat K p.m today - Subjective Interval history: Seen and evaluated at bedside 62 F POD 13 for ex-lap, POD 10 for PEG tube placement Started on feeds and titrating up, minimal residuals No untoward events Day 6 of Zosyn and Vanco for Aspiration pneumonia, Renal function stable We will complete 7 days of antibiotics, then discontinue - Constitutional Vitals: Temp Pulse Resp BP Pulse Ox 97.4 F L 93 18 117/80 97 03/02/17 07:10 03/02/17 07:51 03/02/17 07:10 03/02/17 07:10 03/02/17 07:10 General appearance: Present: A&O X 0, no acute distress, underweight, answers questions appropriately. Absent: cooperative - Head Head exam: Present: atraumatic, normocephalic - Eye Eye exam: Present: PERRL, conjuntiva pink, sclera anicteric Pupils: Present: PERRL - Neck Neck exam general surgery: Present: supple, trachea midline. Absent: lymphadenopathy - Respiratory Respiratory exam: Present: CTAB. Absent: accessory muscle use, rales, rhonchi, wheezes - Cardiovascular Cardiovascular exam: Present: RRR, +S1, +S2. Absent: diastolic murmur, gallop, rubs, systolic murmur - GI/Abdominal GI/Abdominal exam: Present: normal bowel sounds, soft, no peritoneal signs. Absent: distended, tenderness Additional comments: Not tender, midline incision clean and dry BS present in all quadrants PEG tube site clean and dry - Extremities Exam Extremities exam: Present: warm, radial pulses palpable and symetrical. Absent : calf tenderness, cyanotic, pedal edema - Neurological Exam Neurological exam: Present: alert, CN II-XII intact, oriented X3, no focal deficits. Absent: pronater drift, facial droop, speech deficit - Skin Skin exam: Present: dry, intact Internal Medicine: Result - Labs CBC & Chem 7: 03/02/17 07:39 03/02/17 07:39 Labs: Short CBC 03/02/17 Range/Units 07:39 WBC 14.4 H (4.3-11.1) K/mcL Hgb 12.9 (11.5-15.4) g/dL Hct 37.9 (35.3-44.9) % Plt Count 378 (140-400) K/mcL Neutrophils # 12.0 H (1.6-8.9) K/mcL BMP 03/02/17 07:39 Sodium 137 Potassium 2.9 L Chloride 107 Carbon Dioxide 23 BUN 15 Creatinine 1.11 Glucose 111 H Calcium 8.7 - ABG Interpretation ABG results: ABG ABG pH 7.31 pH Units (7.32-7.45) L 02/22/17 04:51 ABG pCO2 36 mmHg (35-45) 02/22/17 04:51 ABG pO2 122 mmHg (85-104) H 02/22/17 04:51 ABG O2 Saturation 98 % (95-98) 02/22/17 04:51 PT/INR, D-dimer PT 13.1 Seconds (9.4-12.1) H 02/18/17 10:30 - VTE Documentation of Mechanical Device: Intermittent pneumatic compression device Consult Discharge Plan - Plan Referrals: Ash Dumont MD [Partnered Physician] - 03/06/17 1:30 pm ()
[2017-03-02] MEDS: D5% in 0.45% NACL 1,000 ML IVC SCH (11:18)
[2017-03-02] MEDS ORDERED: Aminoglycoside Consult 1 EACH MC ONE (12:00)
[2017-03-02] MEDS: Vancomycin 750 MG in D5% in Water 250 ML IVPB SCH (17:49)
[2017-03-03 04:02] LABS: Basophils # 0.1 K/mcL (0.0-0.2); Basophils % 0.5 %; Eosinophils # 0.2 K/mcL (0.0-0.6); Eosinophils % 1.7 %; Hematocrit 34.6 % (35.3-44.9); Hemoglobin 11.9 g/dL (11.5-15.4); Immature Granulocytes % 0.5 % (0-4); Lymphocytes # 0.9 K/mcL (0.6-4.6); Lymphocytes % 7.4 %; Mean Corpuscular HGB Conc 34.4 g/dL (31.6-35.5); Mean Corpuscular Hemoglobin 31.2 pg (28.0-33.3); Mean Corpuscular Volume 90.8 fL (83.0-100.0); Mean Platelet Volume 10.7 fL (9.4-12.4); Monocytes # 0.5 K/mcL (0.0-1.3); Monocytes % 3.7 %; Neutrophils # 10.6 K/mcL (1.6-8.9); Platelet Count 365 K/mcL (140-400); Red Blood Count 3.81 M/mcL (3.82-4.97); Red Cell Distribution Width 14.6 % (11.5-14.5); Segmented Neutrophils % 86.2 %
[2017-03-03 04:19] LABS: BUN/Creatinine Ratio 12 (6-26); Blood Urea Nitrogen 12 mg/dL (7-20); Calcium 8.8 mg/dL (8.6-10.8); Carbon Dioxide 20 mEq/L (19-29); Chloride 108 mEq/L (98-109); Glucose 92 mg/dL (70-99); Osmolality,Calculated 281 (280-300); Sodium 136 mEq/L (136-145); eGFR For African Americans > 60 (> 60); eGFR For Non-African Americans 55 (> 60)
[2017-03-03 04:20] LABS: Potassium 3.4 mEq/L (3.5-4.5)
[2017-03-03] MEDS: *HR* Heparin 5,000 UNIT/ML VIAL SQ SCH (05:09)
[2017-03-03] MEDS: Piperacillin/Tazobactam 3.375 GM in D5% in Water (Mini-Bag+) 100 ML IVPB SCH ×2 (08:00→16:47)
--- NOTE | 2017-03-03 08:47 | General Surgery Progress Note ---
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 Barnes. Complications during surgery include two episodes of hypotension that responded to Hammad-Synephrine drip. Intraoperative findings of gastric necrosis of greater than 75% of the curvature of stomach extending to the gastroesophageal junction with full-thickness necrosis of the entire length of the greater curvature. Subtotal gastrectomy with staple to the end of the esophagus for modified sleeve resection to ensure gastrointestinal continuity. Staple line demonstrated some visible black necrotic mucosa however seromuscular layer appeared viable. EGD with PEG tube placement 02/20/[address] Barnes. PEG site clean, dry. Plan: -Continue small bolus feeds to goal per entry level electrician recommendation. -Continue supportive care -IV antibiotics -Daily wound care -Repeat AM labs -[place] removed today. Incision is clean dry intact. Patient is stable from a surgical standpoint. Surgery will sign out. Patient should follow-up with Dr. Barnes in 2 weeks. Discharge planning per hospital team for placement into care facility. (2) Gastric necrosis Current Visit: Yes Status: Acute (3) Mental retardation Current Visit: Yes Status: Chronic (4) DVT prophylaxis Current Visit: Yes Status: Acute The assessment and plan as outlined above was discussed with the patient and/or family members who expressed understanding and agreement. All questions were answered. Subjective Patient reports: feels better, flatus, bowel movement, afebrile Narrative: The patient was seen and examined. She was resting comfortably in bed. Vital signs stable. Afebrile. Leukocytosis with white blood cell count trending down. Patient is tolerating her small bolus feeding well. No episodes of nausea or vomiting. Patient is stooling appropriately and passing gas. Objective Vital Signs - Last 8 Hours Temp Pulse Resp BP Pulse Ox 03/03/17 07:16 98.3 F 72 20 142/95 98 03/03/17 07:00 64 03/03/17 04:20 97.5 F L 76 18 131/96 98 03/03/17 03:21 131/96 Intake and Output 03/02/17 03/03/17 03/03/17 23:59 07:59 15:59 Intake Total 650 / 650 100 / 100 Output Total 975 / 975 0 / 0 Balance -325 / -325 100 / 100 Intake: IV Fluids 450 / 450 100 / 100 D5% And 0.45% Nacl 1000 250 / 250 Ml Bag 1,000 ML @ 80 mls/ hr IVC .[id number] [facility] Rx#: [id number] Zosyn 3.375 GM In 100 / 100 100 / 100 Dextrose 5% (Minibag+) 100 ML 100 ML @ 25 mls/hr IVPB Q8HR [facility] Rx#: [id number] Potassium Chloride 10 mEq 100 / 100 /100mL 10 meq In 100 ml @ 100 mls/hr IVPB Q1H [facility] Rx#:[id number] Oral 200 / 200 Free Water Intake Amount 0 / 0 0 / 0 Output: Gastric Tube Lavage 0 / 0 0 / 0 Amount Left Upper Quadrant 0 / 0 0 / 0 Catheter 975 / 975 Other: Meal Dinner Percent of Meal Consumed 90% Weight 59.6 kg Patient Weight 03/03/17 23:59 Weight 59.6 kg - General physical appearance no distress, no pain, chronically ill - Eyes PERRL, normal ocular movement - ENT normal mucosa, atraumatic, CN 2-12 grossly intact - Neck Neck exam: trachea midline - Respiratory normal expansion, normal respiratory effort, clear to auscultation - Cardiovascular Cardiovascular exam: Present: irregular rhythm, no murmurs/rubs/gallops. Absent : JVD - Abdomen Abdomen: Present: bowel sounds present, soft, non tender - Incision Incision: Present: clean and dry, intact - Integumentary no rash, no abnormal pigmentation - Neurologic CN 2-12 grossly intact - Musculoskeletal normal posture - Labs 03/03/17 03:29 03/03/17 03:29 Diabetes panel 03/02/17 03/03/17 Range/Units 17:00 03:29 Sodium 136 (136-145) mEq/L Potassium 3.8 3.4 L (3.5-4.5) mEq/L Chloride 108 (98-109) mEq/L Carbon Dioxide 20 (19-29) mEq/L BUN 12 (7-20) mg/dL Creatinine 1.02 (0.57-1.11) mg/dL Glucose 92 (70-99) mg/dL Calcium 8.8 (8.6-10.8) mg/dL Calcium panel 03/03/17 Range/Units 03:29 Calcium 8.8 (8.6-10.8) mg/dL Pituitary panel 03/02/17 03/03/17 Range/Units 17:00 03:29 Sodium 136 (136-145) mEq/L Potassium 3.8 3.4 L (3.5-4.5) mEq/L Chloride 108 (98-109) mEq/L Carbon Dioxide 20 (19-29) mEq/L BUN 12 (7-20) mg/dL Creatinine 1.02 (0.57-1.11) mg/dL Glucose 92 (70-99) mg/dL Calcium 8.8 (8.6-10.8) mg/dL Adrenal panel 03/02/17 03/03/17 Range/Units 17:00 03:29 Sodium 136 (136-145) mEq/L Potassium 3.8 3.4 L (3.5-4.5) mEq/L Chloride 108 (98-109) mEq/L Carbon Dioxide 20 (19-29) mEq/L BUN 12 (7-20) mg/dL Creatinine 1.02 (0.57-1.11) mg/dL Glucose 92 (70-99) mg/dL Calcium 8.8 (8.6-10.8) mg/dL - VTE Documentation of Mechanical Device: Intermittent pneumatic compression device Consult Discharge Plan - Plan Referrals: Ash Dumont MD [Partnered Physician] - (PATIENT IS GOING TO ECF, NO FOLLOW UP APPOINTMENT NEEDED) - Attending Attestation I examined this patient and my medical decision-making was reviewed with the DELI DEPARTMENT MANAGER/PA/Advanced Practice Nurse/Resident Physician. I agree with the documented findings, disposition and treatment plan as described except to the extent set forth below. The patient was seen and evaluated her. Her feedings are progressing well. She should be able to go to extended care facility as soon she reaches her feeding calorie goals. Dane Barnes MD FACS
[2017-03-03] MEDS ORDERED: Potassium Chloride Elixir 20 MEQ/15 ML UDC GTUBE SCH (09:00)
--- NOTE | 2017-03-03 09:13 | Physician Discharge Referral ---
ExtendedCare Referral Info Transfer To: SNF Provider in Charge: Dr. Nunez Provider in Charge after Transfer: PCP Institutional Level of Care: Skilled - Diagnosis (1) DEBORAH (acute kidney injury) Priority: Primary Status: Resolved (2) Anxiety Priority: Secondary Status: Chronic (3) Atrial fibrillation Priority: Primary Status: Acute (4) Gastric necrosis Priority: Primary Status: Acute (5) Pneumonia Priority: Primary Status: Acute (6) Small bowel obstruction Priority: Primary Status: Resolved (7) Mental retardation Priority: Secondary Status: Chronic (8) Hypokalemia Priority: Primary Status: Acute Prognosis: Fair Aware of Diagnosis: Family Aware of Prognosis: Family - Transfer Medications Home Medications: Acetaminophen [Tylenol] 1,000 mg PO Q4H PRN 02/15/17 [History] Calcium Carbonate/Simethicone [Evelyne-Hoffman Heartburn+Gas] 1 each PO Q4H PRN [History] Haloperidol [Haldol] 1 mg PO BID 02/15/17 [History] Lansoprazole [Prevacid] 30 mg GTUBE DAILY@0730 capsule. 03/03/17 [Rx] Metoprolol [Lopressor] 12.5 mg PO BID #0 tablet 03/03/17 [Rx] Potassium Chloride Elixir [Potassium Chloride] 20 meq GTUBE BID udc 03/03/17 [ Rx] hydrOXYzine HCl [Hydroxyzine HCl] 12.5 mg PO Q6H PRN #0 03/03/17 [Rx] Allergies/Adverse Reactions: Allergies No Known Allergies Allergy (Verified 07/16/15 22:23) - Respiratory Orders Oxygen / L per min (PRN) Smoking Cessation: Smoking cessation has been advised. For more information, call the [place] Tobacco Quit Line at 1-320-XPEU-NOW. - Advance Directives Code Status: DNR-Arrest - Mobility Orders Other (per PT) - Rehabiliation Orders Rehab Potential: Fair - Diet Orders Tube Feedings (type/amount/rate): VITAL 1.5 FORMULA FEEDS, 60CC BOLUS Q4HR TUBE FEEDS, INCREASE BY 20CC EVERY 24H TO GOAL OF 175CC Q4HRS Flush Tube (type/amount/frequency): FREE WATER 100c q4H, 2HRS AFTER TUBE FEED BOLUS CERTIFICATION: I certify that the transfer of the above named patient to an Extended Care Facility is necessary for the continuing treatment of the diagnosis listed. The above information is true and accurate reflection of patient's current condition. Confidential - Redisclosure prohibited without a patient's written consent.
--- NOTE | 2017-03-03 09:14 | Discharge Summary ---
Date of Encounter: 03/03/17 Time of Encounter: 09:13 - Discharge Diagnosis (1) DEBORAH (acute kidney injury) Priority: Primary Status: Resolved (2) Anxiety Priority: Secondary Status: Chronic (3) Atrial fibrillation Priority: Primary Status: Acute Qualifiers: Atrial fibrillation type: unspecified Qualified Code(s): I48.91 - Unspecified atrial fibrillation (4) Gastric necrosis Priority: Primary Status: Acute (5) Pneumonia Priority: Primary Status: Acute Qualifiers: Pneumonia type: aspiration pneumonia Aspiration pneumonia type: due to gastric secretions Laterality: left Lung location: lower lobe of lung Qualified Code(s): J69.0 - Pneumonitis due to inhalation of food and vomit (6) Small bowel obstruction Priority: Primary Status: Resolved (7) Mental retardation Priority: Secondary Status: Chronic (8) Hypokalemia Priority: Primary Status: Acute - Discharge Medications Home Medications: Acetaminophen [Tylenol] 1,000 mg PO Q4H PRN 02/15/17 [History] Calcium Carbonate/Simethicone [Evelyne-Baldwin Heartburn+Gas] 1 each PO Q4H PRN [History] Haloperidol [Haldol] 1 mg PO BID 02/15/17 [History] Lansoprazole [Prevacid] 30 mg GTUBE DAILY@0730 capsule. 03/03/17 [Rx] Metoprolol [Lopressor] 12.5 mg PO BID #0 tablet 03/03/17 [Rx] Potassium Chloride Elixir [Potassium Chloride] 20 meq GTUBE BID udc 03/03/17 [ Rx] hydrOXYzine HCl [Hydroxyzine HCl] 12.5 mg PO Q6H PRN #0 03/03/17 [Rx] Allergies/Adverse Reactions: Allergies No Known Allergies Allergy (Verified 07/16/15 22:23) Procedures/tests Complete & Pending: Procedures Performed prior 72 hours Category Date Time Status ECG 12 lead ECG [ECG] Routine Y 02/28/17 08:16 Completed Date of admission: 02/15/17 17:34 Primary care physician: PCP NO Consults: 02/15/17 18:07 Consult to Surgery [CONS] Routine Consulting Provider: Surgery Orin Surgical Reason for Consult: high grade bowel obstruction. Call Completed: Yes 02/16/17 13:11 Consult to Postbed Stitcher [CONS] Routine Reason for SW Consult: resources. 02/16/17 15:28 Consult to Palliative Care [CONS] Stat Comment: Consulting Provider: Palliative Care Orin Reason for Consult: Goals of care Time Notified: 15:29 Call Completed: Yes 02/20/17 11:35 Consult to Nutrition [CONS] Stat Comment: Consulting Provider: NUTRITION Reason for Dietary Consult: TPN Start and Manage 02/21/17 09:18 Consult to PICC team [Consult to Invasive Line Access Team] [CONS] Routine Reason for Consult: PICC line for TPN Line Type: PICC 02/21/17 10:36 Consult to Invasive Line Access Team [CONS] Routine Reason for Consult: Picc Line Insertion Line Type: PICC 02/23/17 16:07 Consult to Occupational Therapy [CONS] Stat Comment: Evaluate, develop and implement POC Reason for Consult: Placement Consult to Physical Therapy [CONS] Stat Comment: Evaluate, develop and implement POC Reason for Consult: Placement 02/27/17 09:14 Consult to Cardiology [CONS] Routine Comment: Consulting Provider: Cardiology Orin Reason for Consult: Atrial fibrillation Call Completed: No Discharging clinician: Kulwant Nunez Anticipated date of discharge: 03/03/17 - Patient Status Disposition: Transfer SNF Condition: Fair Functional capacity at discharge: bed bound Overall status at discharge: patient is progressing back to baseline - Discharge Instructions Instructions: Sepsis (DC) Follow Up With: Ash Dumont MD [Partnered Physician] - (PATIENT IS GOING TO F, NO FOLLOW UP APPOINTMENT NEEDED) - Diet and Activity Activity: as per physical therapy Diet: other (TUbe feeds, 60cc q4HR) Interval History: See below Hospital course: Ms. 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 Intra-operative findings of gastric necrosis of greater than 75% of the curvature of stomach extending to the gastroesophageal junction with full-thickness necrosis of the entire length of the greater curvature. She had Subtotal gastrectomy with staple to the end of the esophagus for modified sleeve resection to ensure gastrointestinal continuity. Staple line demonstrated some visible black necrotic mucosa however seromuscular layer appeared viable. She also had EGD with PEG tube placement 02/20/17. She is POD 11 for PEG placement Her hospital stay was further complicated by DEBORAH which has resolved with IVF hydration, she also developed aspiration pneumonia, she has received 7 days of IV Vancomycin and Zosyn She has been started on bolus feedings by PEG tube and is tolerating 60cc q4hr for now, no residuals Patient is clinically back to her baseline and stable for discharge to SNF for continued care She is being discharged on potassium supplements by PEG tube due to persistent hypokalemia Follow up with General surgery is recommended within one -two weeks Plan of care discussed with mother, verbalized understanding - Time Spent with Patient Total time spent providing and/or coordinating discharge services: Greater than 30 minutes (50 minutes spent on chart review, patient encounter, medication reconciliation, preparing discharge and discussion with SW, and documentation) - Constitutional Vitals: Temp Pulse Resp BP Pulse Ox 98.3 F 72 20 142/95 98 03/03/17 07:16 03/03/17 07:16 03/03/17 07:16 03/03/17 07:16 03/03/17 07:16 General appearance: Present: A&O X 0, no acute distress, underweight, answers questions appropriately. Absent: cooperative - Head Head exam: Present: atraumatic, normocephalic - Eye Eye exam: Present: PERRL, conjuntiva pink, sclera anicteric Pupils: Present: PERRL - Neck Neck exam general surgery: Present: supple, trachea midline. Absent: lymphadenopathy - Respiratory Respiratory exam: Present: CTAB. Absent: accessory muscle use, rales, rhonchi, wheezes - Cardiovascular Cardiovascular exam: Present: RRR, +S1, +S2. Absent: diastolic murmur, gallop, rubs, systolic murmur - GI/Abdominal Additional comments: PEG tube site clean and dry. Abdominal wall incision, josh have been removed , looks clean, BS present in all quadrants, abdomen is not tender - Extremities Exam Extremities exam: Present: warm, radial pulses palpable and symetrical. Absent : calf tenderness, cyanotic, pedal edema - Neurological Exam Neurological exam: Present: alert, CN II-XII intact, no focal deficits, speech deficit. Absent: oriented X3, pronater drift, facial droop - Skin Skin exam: Present: dry, intact - VTE Documentation of Mechanical Device: Intermittent pneumatic compression device
[2017-03-03 15:46] VITALS: BP 138/94
== END 2017-03-03 18:58 | DRG 853 ==
LOC: EMEROO 14:30 → ICNU 17:34 → SUATTDRO 17:34 → ICNU 18:08 → 3ANU 02-23 09:28 → 2NNU 02-26 08:45
PROVIDERS: ADMIT Internal Medicine Hospice and Palliative Medicine; ATTEND Internal Medicine